=== PATIENT | female | born 1960 | race Caucasian/White ===

== ENCOUNTER 2017-04-22 13:59 | Inpatient (IN) | payer BC ==
[2017-04-22] VITALS (7 sets, daily range): BP systolic 137–162; BP diastolic 72–93; PULSE 61–88; RESP 18–20; TEMP 98; O2SAT 95–98
[~2017-04-22 13:59] MED LIST: ALBU1AER INH; ASPI81 PO; CART180C4 PO; GEMF600T PO; LANTUS2P SC; LEVO100T4 PO; NOVOLOGSS SQ; OMEG100037 PO; VITA20002 PO; ZITHTAB PO; ZOCO80TA PO
[2017-04-22] MEDS ORDERED: LEVO100T5 PO (14:08)
[2017-04-22] MEDS ORDERED: GEMF600T PO (14:08)
[2017-04-22] MEDS ORDERED: HUMALOG SQ (14:08)
[2017-04-22] MEDS ORDERED: INSU1INJ13 SQ (14:08)
[2017-04-22] MEDS ORDERED: VICT18IN SQ (14:08)
[2017-04-22] MEDS ORDERED: ZOCO40TA PO (14:08)
[2017-04-22] MEDS ORDERED: D31000TA PO (14:08)
[2017-04-22] MEDS ORDERED: FISH1000 PO (14:08)
[2017-04-22] MEDS ORDERED: ASPI81CH CHEW (14:08)
[2017-04-22] MEDS ORDERED: DILT120T PO (14:08)
--- NOTE | 2017-04-22 14:30 | PD ---
HPI Chief Complaint: General Weakness Time Seen by Provider: 14:30 Travel History International Travel<30 days: No Contact w/Intl Traveler<30days: No Traveled to known affect area: No History of Present Illness HPI 56-year-old female came to the emergency room with history of aching all over from her head to toe for past 4-5 days. She also feels quite weak and lethargic. Patient says that she works as a agency cashier and has been unable to do that because of this. She has multiple past medical history the form of diabetes, hypothyroidism and stage III kidney disease. She has been taking her medications like she supposed to and seen her respective physicians as well. Her last blood test by her kidney doctor was 4-5 months ago. Her last thyroid test was more than 2 years ago as per her. Her analysis engineer recently changed her Lantus Tresiba and increase the dose of her other diabetes medication. Vital signs are otherwise stable. Denies any vomiting or diarrhea. In fact she says she has been constipated. Her last bowel movement was yesterday where she had to strain some and had small quantity of hard stool. [facility] Past Medical History Narrative Medical List of her past medical, surgical, social and family history was reviewed from the nursing note. Hx Anticoagulant Therapy: Yes (asa 81mg) Anemia: Yes Asthma: No Blood Disorders: No Anxiety: No Depression: Yes Heart Rhythm Problems: No Cancer: No Cardiac Catheterization: Yes Cardiovascular Problems: Yes ( -2007 with one stent placement, HTN on meds) High Cholesterol: Yes Chemotherapy: No Chest Pain: No Congestive Heart Failure: No COPD: No Coronary Artery Disease: Yes Diabetes: Yes Patient Takes Glucophage: No Endocrine: Yes Gastrointestinal Disorders: Yes (diarrhea today) Genitourinary: No Hypertension: Yes Immune Disorder: No Implanted Vascular Access Dvce: Yes Musculoskeletal: No Neurologic: No Psychiatric: No Reproductive: No Respiratory: Yes (COPD) Myocardial Infarction: Yes (Pt states 2007) Radiation Therapy: No Renal Failure: Yes (CKD stage 4) Sickle Cell Disease: No Sleep Apnea: No Thyroid Disease: Yes (Hypo) Menopausal: Yes : 3 Para: 2 : 1 Tubal Ligation: Yes Past Surgical History Body Medical Devices: coronary stent Coronary Stent: Yes (12/30) Other Surgery: No Social History Alcohol Use: No Tobacco Use: Yes (1/2 PPD) Substance Use: Yes (MARIJUANA) Allergies-Medications (Allergen,Severity, Reaction): Coded Allergies: Sulfa (Verified Adverse Reaction, Intermediate, RASH, 04/22/17) Comments List of her allergies reviewed from the nursing note. Reported Meds & Prescriptions Reported Meds & Active Scripts Active Reported Humalog Inj (Insulin Human Lispro) 1,000 Unit/10 Ml Vial 1-9 Units SQ ACHS Max dose at bedtime:( )units; sugars< 70,(0)units; sugars 150-199,(1)unit; sugars 200-249,(3)units; sugars 250-299,(5)units; sugars 300-349,(7)units; sugars more than 349,(9)units. Victoza Inj (Liraglutide Inj) 18 Mg/3 Ml Pen 0.6 Mg SQ DAILY Tresiba Flextouch Pen Inj (Insulin Degludec Inj) 600 unit/3 ML Pen 40 Units SQ DAILY Fish Oil (Abell-3 Fatty Acids) 1,000 Mg Cap 1 Tab PO DAILY Gemfibrozil 600 Mg Tab 600 Mg PO BIDAC Take 30 minutes prior to breakfast and dinner. Zocor (Simvastatin) 40 Mg Tab 40 Mg PO DAILY Levothyroxine (Levothyroxine Sodium) 100 Mcg Tab 100 Mcg PO DAILY Diltiazem (Diltiazem HCl) 120 Mg Tab 240 Mg PO DAILY D3 (Cholecalciferol) 1,000 Unit Tab 1 Tab PO TID Aspirin 81 Mg Chew 81 Mg CHEW DAILY Narrative Medication List of her home medications reviewed from the nursing note. Review of Systems Except as stated in HPI: all other systems reviewed are Neg Physical Exam Narrative GENERAL: Awake, alert, moderate distress, obese SKIN: Focused skin assessment warm/dry. Pale HEAD: Atraumatic. Normocephalic. EYES: Pupils equal and round. No scleral icterus. No injection or drainage. ENT: No nasal bleeding or discharge. Dry mucous membrane and coated tongue NECK: Trachea midline. No JVD. CARDIOVASCULAR: Regular rate and rhythm. No murmur appreciated. RESPIRATORY: No accessory muscle use. Clear to auscultation. Breath sounds equal bilaterally. GASTROINTESTINAL: Abdomen soft, non-tender, nondistended. Hepatic and splenic margins not palpable. MUSCULOSKELETAL: No obvious deformities. No clubbing. No cyanosis. No edema. NEUROLOGICAL: Awake and alert. No obvious cranial nerve deficits. Motor grossly within normal limits. Normal speech. PSYCHIATRIC: Appropriate mood and affect; insight and judgment normal. Data Data Last Documented VS Vital Signs Date Time Temp Pulse Resp B/P Pulse Ox O2 Delivery O2 Flow Rate FiO2 04/22/17 17:05 61 18 143/74 98 Room Air 04/22/17 14:03 98.0 Orders Complete Blood Count With Diff (04/22/17 14:53) Comprehensive Metabolic Panel (04/22/17 14:53) Creatine Kinase (Cpk) (04/22/17 14:53) Thyroid Stimulating Hormone (04/22/17 14:53) Urinalysis - C+S If Indicated (04/22/17 14:53) Blood Glucose (04/22/17 14:53) Ecg Monitoring (04/22/17 14:53) Iv Access Insert/Monitor (04/22/17 14:53) Oximetry (04/22/17 14:53) Sodium Chloride 0.9% Flush (Ns Flush) (04/22/17 15:00) Sodium Chlorid 0.9% 500 Ml Inj (Ns 500 M (04/22/17 15:00) Electrocardiogram (04/22/17 ) Troponin I (04/22/17 14:53) Urine Culture (04/22/17 15:00) Levothyroxine (Synthroid) (04/22/17 16:00) Sodium Chlor 0.9% 1000 Ml Inj (Ns 1000 M (04/22/17 16:45) Sodium Chlor 0.9% 1000 Ml Inj (Ns 1000 M (04/22/17 16:45) Sodium Chlor 0.9% 1000 Ml Inj (Ns 1000 M (04/22/17 16:34) CKMB (04/22/17 15:13) CKMB% (04/22/17 15:13) Admit Order (Ed Use Only) (04/22/17 17:24) Labs Laboratory Tests Test 04/22/17 04/22/17 15:00 15:13 Urine Collection Type CATH Urine Color YELLOW Urine Turbidity SLIGHT Urine pH 6.0 Urine Specific [place] 1.018 Urine Protein 100 mg/dL Urine Glucose (UA) NEG mg/dL Urine Ketones NEG mg/dL Urine Occult Blood LARGE Urine Nitrite NEG Urine Bilirubin NEG Urine Leukocyte Esterase TRACE Urine RBC 20-24 /hpf Urine WBC 6-8 /hpf Urine Squamous Epithelial > 8 /hpf Cells Urine Bacteria MOD /hpf Microscopic Urinalysis Comment CULTURE INDICATED Urine Collection Time 15:18 White Blood Count 13.2 TH/MM3 Red Blood Count 4.64 MIL/MM3 Hemoglobin 13.0 GM/DL Hematocrit 39.9 % Mean Corpuscular Volume 86.0 FL Mean Corpuscular Hemoglobin 28.1 PG Mean Corpuscular Hemoglobin 32.7 % Concent Red Cell Distribution Width 12.7 % Platelet Count 331 TH/MM3 Mean Platelet Volume 8.1 FL Neutrophils (%) (Auto) 78.9 % Lymphocytes (%) (Auto) 16.4 % Monocytes (%) (Auto) 3.2 % Eosinophils (%) (Auto) 0.8 % Basophils (%) (Auto) 0.7 % Neutrophils # (Auto) 10.4 TH/MM3 Lymphocytes # (Auto) 2.2 TH/MM3 Monocytes # (Auto) 0.4 TH/MM3 Eosinophils # (Auto) 0.1 TH/MM3 Basophils # (Auto) 0.1 TH/MM3 CBC Comment DIFF FINAL Differential Comment Sodium Level 140 MEQ/L Potassium Level 4.4 MEQ/L Chloride Level 105 MEQ/L Carbon Dioxide Level 24.1 MEQ/L Anion Gap 11 MEQ/L Blood Urea Nitrogen 52 MG/DL Creatinine 2.50 MG/DL Estimat Glomerular Filtration 20 ML/MIN Rate Random Glucose 141 MG/DL Calcium Level 9.7 MG/DL Total Bilirubin 0.3 MG/DL Aspartate Amino Transf 795 U/L (AST/SGOT) Alanine Aminotransferase 318 U/L (ALT/SGPT) Alkaline Phosphatase 143 U/L Total Creatine Kinase 57355 U/L Creatine Kinase MB 245.1 NG/ML Creatine Kinase MB % 1.1 % Troponin I 0.04 NG/ML Total Protein 8.5 GM/DL Albumin 3.5 GM/DL Thyroid Stimulating Hormone 0.350 uIU/ML 3rd Gen [facility] Medical Decision Making Medical Screen Exam Complete: Yes Emergency Medical Condition: Yes Medical Record Reviewed: Yes Interpretation(s) Twelve-lead EKG was reviewed by me. Normal sinus rhythm, normal axis, nonspecific ST-T wave changes. Heart rate of 75 bpm. Differential Diagnosis Metabolic abnormality, dehydration, renal failure, hypo-thyroidism, rhabdomyolysis Narrative Course 3:30 PM awaiting for the blood test results. She looked dehydrated and I gave her 500 cc of IV fluid bolus. Her bedside blood glucose level was 134. 4 PM blood test results are back except for CPK. LFTs are elevated. My suspicion is high for rhabdomyolysis given the fact that patient is on Zocor and gemfibrozil. Case has been signed over to the oncoming ER physician. I ordered a liter of IV fluid bolus. Procedures EKG Prior to Arrival: Jerry Wang MD Apr 22, 2017 14:30
[2017-04-22] MEDS ORDERED: SODIUM CHLORID 0.9% 500 ML INJ 500 ML IV ONE (15:00)
[2017-04-22] MEDS ORDERED: SODIUM CHLORIDE 0.9% FLUSH 5 ML FLUSH IV FLUSH PRN (15:00)
[2017-04-22 15:22] LABS: AUTOMATED NEUTROPHIL # 10.4 TH/MM3 (1.8-7.7); BASOPHIL # 0.1 TH/MM3 (0-0.2); BASOPHIL % 0.7 % (0.0-2.0); EOSINOPHIL # 0.1 TH/MM3 (0-0.4); EOSINOPHIL % 0.8 % (0.0-4.0); HEMATOCRIT 39.9 % (35.0-46.0); LYMPH % 16.4 % (9.0-44.0); LYMPHOCYTE # 2.2 TH/MM3 (1.0-4.8); MEAN CORPUSCULAR HEMOGLOBIN 28.1 PG (27.0-34.0); MEAN CORPUSCULAR HGB CONC 32.7 % (32.0-36.0); MONO % 3.2 % (0.0-8.0); NEUT % 78.9 % (16.0-70.0); PLATELET COUNT 331 TH/MM3 (150-450); RED BLOOD COUNT 4.64 MIL/MM3 (4.00-5.30); RED CELL DISTRIBUTION WIDTH 12.7 % (11.6-17.2); WHITE BLOOD COUNT 13.2 TH/MM3 (4.0-11.0)
[2017-04-22 15:25] LABS: HEMO FLAGS DIFF FINAL
[2017-04-22 15:27] LABS: BLOOD, URINE LARGE (NEG); GLUCOSE,URINE NEG (NEG); KETONE, URINE NEG (NEG); NITRITE,URINE NEG (NEG)
[2017-04-22 15:30] LABS: CHLORIDE 105 MEQ/L (98-107); POTASSIUM 4.4 MEQ/L (3.5-5.1); SODIUM (NA) 140 MEQ/L (136-145)
[2017-04-22 15:31] LABS: METHOD OF COLLECTION CATH; URINE COLOR YELLOW (YELLW/STRAW)
[2017-04-22 15:32] LABS: BACTERIA, URINE MOD /hpf; COMMENT (UR) CULTURE INDICATED; CULTURE IF INDICATED CULTURE INDICATED; SQUAMOUS EPITHELIAL CELL URINE > 8 /hpf (0-5)
[2017-04-22 15:34] LABS: ANION GAP 11 MEQ/L (5-15); BICARBONATE 24.1 MEQ/L (21.0-32.0); BLOOD UREA NITROGEN 52 MG/DL (7-18)
[2017-04-22 15:37] LABS: ALT (GPT) 318 U/L (10-53); AST (GOT) 795 U/L (15-37); GLOMERULAR FILTRATION RATE 20 ML/MIN (>89)
[2017-04-22 15:38] LABS: TOTAL BILIRUBIN ADULT 0.3 MG/DL (0.2-1.0)
[2017-04-22 15:40] LABS: ALKALINE PHOSPHATASE 143 U/L (45-117)
[2017-04-22] MEDS ORDERED: LEVOTHYROXINE SODIUM 200 MCG TAB PO ONE (16:00)
[2017-04-22] MEDS ORDERED: SODIUM CHLOR 0.9% 1000 ML INJ 1,000 ML IV SCH (16:34)
--- NOTE | 2017-04-22 16:39 | PD ---
Data Data Last Documented VS Vital Signs Date Time Temp Pulse Resp B/P Pulse Ox O2 Delivery O2 Flow Rate FiO2 04/22/17 16:33 71 20 141/72 98 Room Air 04/22/17 14:03 98.0 Orders Complete Blood Count With Diff (04/22/17 14:53) Comprehensive Metabolic Panel (04/22/17 14:53) Creatine Kinase (Cpk) (04/22/17 14:53) Thyroid Stimulating Hormone (04/22/17 14:53) Urinalysis - C+S If Indicated (04/22/17 14:53) Blood Glucose (04/22/17 14:53) Ecg Monitoring (04/22/17 14:53) Iv Access Insert/Monitor (04/22/17 14:53) Oximetry (04/22/17 14:53) Sodium Chloride 0.9% Flush (Ns Flush) (04/22/17 15:00) Sodium Chlorid 0.9% 500 Ml Inj (Ns 500 M (04/22/17 15:00) Electrocardiogram (04/22/17 ) Troponin I (04/22/17 14:53) Urine Culture (04/22/17 15:00) Levothyroxine (Synthroid) (04/22/17 16:00) Sodium Chlor 0.9% 1000 Ml Inj (Ns 1000 M (04/22/17 16:45) Sodium Chlor 0.9% 1000 Ml Inj (Ns 1000 M (04/22/17 16:45) Sodium Chlor 0.9% 1000 Ml Inj (Ns 1000 M (04/22/17 16:34) CKMB (04/22/17 15:13) CKMB% (04/22/17 15:13) Labs Laboratory Tests Test 04/22/17 04/22/17 15:00 15:13 Urine Collection Type CATH Urine Color YELLOW Urine Turbidity SLIGHT Urine pH 6.0 Urine Specific [place] 1.018 Urine Protein 100 mg/dL Urine Glucose (UA) NEG mg/dL Urine Ketones NEG mg/dL Urine Occult Blood LARGE Urine Nitrite NEG Urine Bilirubin NEG Urine Leukocyte Esterase TRACE Urine RBC 20-24 /hpf Urine WBC 6-8 /hpf Urine Squamous Epithelial > 8 /hpf Cells Urine Bacteria MOD /hpf Microscopic Urinalysis Comment CULTURE INDICATED Urine Collection Time 15:18 White Blood Count 13.2 TH/MM3 Red Blood Count 4.64 MIL/MM3 Hemoglobin 13.0 GM/DL Hematocrit 39.9 % Mean Corpuscular Volume 86.0 FL Mean Corpuscular Hemoglobin 28.1 PG Mean Corpuscular Hemoglobin 32.7 % Concent Red Cell Distribution Width 12.7 % Platelet Count 331 TH/MM3 Mean Platelet Volume 8.1 FL Neutrophils (%) (Auto) 78.9 % Lymphocytes (%) (Auto) 16.4 % Monocytes (%) (Auto) 3.2 % Eosinophils (%) (Auto) 0.8 % Basophils (%) (Auto) 0.7 % Neutrophils # (Auto) 10.4 TH/MM3 Lymphocytes # (Auto) 2.2 TH/MM3 Monocytes # (Auto) 0.4 TH/MM3 Eosinophils # (Auto) 0.1 TH/MM3 Basophils # (Auto) 0.1 TH/MM3 CBC Comment DIFF FINAL Differential Comment Sodium Level 140 MEQ/L Potassium Level 4.4 MEQ/L Chloride Level 105 MEQ/L Carbon Dioxide Level 24.1 MEQ/L Anion Gap 11 MEQ/L Blood Urea Nitrogen 52 MG/DL Creatinine 2.50 MG/DL Estimat Glomerular Filtration 20 ML/MIN Rate Random Glucose 141 MG/DL Calcium Level 9.7 MG/DL Total Bilirubin 0.3 MG/DL Aspartate Amino Transf 795 U/L (AST/SGOT) Alanine Aminotransferase 318 U/L (ALT/SGPT) Alkaline Phosphatase 143 U/L Total Creatine Kinase 04048 U/L Creatine Kinase MB 245.1 NG/ML Creatine Kinase MB % 1.1 % Troponin I 0.04 NG/ML Total Protein 8.5 GM/DL Albumin 3.5 GM/DL Thyroid Stimulating Hormone 0.350 uIU/ML 3rd Gen [facility] Supervised Visit with [facility]: No Narrative Course Patient was initially evaluated by the previous provider and signed out to me at the beginning of my shift at approximate 4:00 PM pending CPK and disposition. See her note for further details. Briefly this is a 56-year-old female with history of diabetes, CK 80, hypothyroidism, here for evaluation of generalized muscle aches and pains as well as weakness. Initial vital signs show heart rate 80, blood pressure 162/80 , pulse ox 95% on room air, oral temp of 98F. CBC shows WBC 13.2, hemoglobin 13, hematocrit 39.9, platelets 331. CMP is remarkable for BUN 52, creatinine 2.5, GFR 28 which is worse than her baseline, AST 795, ALT 318. Troponin is 143. TSH is 0.35. UA shows large occult blood, 20-24 RBCs, 6-8 WBCs, greater than 8 epithelial cells, moderate bacteria. Bacteria is likely a contaminant. I do not believe the surface since a UTI. I called the lab to inquire about this CPK, and the laborer dairy farm tells me that he is in the process of diluting the sample stating that it will be greater than 14,000. Patient was given 500 cc of normal saline by the previous provider. She was written for 2 more liters of normal saline IV bolus and started on 125 cc per hour. Her rhabdomyolysis is likely medication induced. On exam she is awake and alert. There are no focal neurologic findings, however she is weak in all 4 of her extremities. She will be admitted for further treatment and evaluation of rhabdomyolysis, transaminitis, acute renal insufficiency. Case discussed with [facility] hospitalist Dr. Umana. Patient will be admitted to their service under Dr. Bruce. Diagnosis Primary Impression: Rhabdomyolysis Qualified Code: M62.82 - Non-traumatic rhabdomyolysis Additional Impressions: Transaminitis Acute renal insufficiency Admitting Information Admitting Physician Requests: Admit Ta Aragon MD Apr 22, 2017 16:39
[2017-04-22 16:41] LABS: CREATINE KINASE 22400 U/L (26-192)
[2017-04-22 16:43] LABS: CKMB 245.1 NG/ML (0.5-3.6)
[2017-04-22] MEDS ORDERED: SODIUM CHLOR 0.9% 1000 ML INJ 1,000 ML IV ONE ×2 (16:45)
[2017-04-22] MEDS ORDERED: GLUCAGON 1 MG/ML VIAL OTHER PRN (17:30)
[2017-04-22] MEDS ORDERED: ONDANSETRON HCL 4 MG/2 ML VIAL IVP PRN (17:30)
[2017-04-22] MEDS ORDERED: DEXTROSE 50% IN WATER 50 ML VIAL(D50) IV PRN (17:30)
[2017-04-22] MEDS ORDERED: NALOXONE HCL 0.4 MG/ML AMP IV PRN (17:30)
[2017-04-22] MEDS ORDERED: SODIUM CHLORIDE 0.9% FLUSH 10 ML FLUSH IV FLUSH PRN (17:30)
[2017-04-22] MEDS: HEPARIN SODIUM - SQ 10,000 UNITS/ML VIAL SQ SCH (18:04)
[2017-04-22] MEDS: SODIUM CHLOR 0.9% 1000 ML INJ 1,000 ML IV SCH (18:05)
[2017-04-22] MEDS: SODIUM CHLORIDE 0.9% FLUSH 10 ML FLUSH IV FLUSH SCH (21:00)
[2017-04-22] MEDS: INSULIN ASPART SUPPLEMENTAL SCALE SQ SCH (21:19)
[2017-04-22 23:22] LABS: CREATINE KINASE GREATER THAN 14000 U/L (26-192)
[2017-04-22 23:40] LABS: CKMB 234.4 NG/ML (0.5-3.6)
[2017-04-23] VITALS (12 sets, daily range): BP systolic 133–159; BP diastolic 76–86; PULSE 51–75; RESP 16–20; TEMP 97.1–97.9; O2SAT 96–100
[2017-04-23] MEDS: SODIUM CHLOR 0.9% 1000 ML INJ 1,000 ML IV SCH ×2 (04:24→11:37)
[2017-04-23] MEDS ORDERED: LEVOTHYROXINE SODIUM 100 MCG TAB PO SCH (06:00)
[2017-04-23] MEDS: INSULIN ASPART SUPPLEMENTAL SCALE SQ SCH ×4 (06:26→20:50)
[2017-04-23 06:33] LABS: AUTOMATED NEUTROPHIL # 6.9 TH/MM3 (1.8-7.7); BASOPHIL # 0.1 TH/MM3 (0-0.2); EOSINOPHIL # 0.1 TH/MM3 (0-0.4); EOSINOPHIL % 1.5 % (0.0-4.0); HEMATOCRIT 34.6 % (35.0-46.0); HEMO FLAGS DIFF FINAL; LYMPHOCYTE # 2.2 TH/MM3 (1.0-4.8); MEAN CORPUSCULAR HGB CONC 33.7 % (32.0-36.0); MONO % 6.2 % (0.0-8.0); NEUT % 69.3 % (16.0-70.0); PLATELET COUNT 276 TH/MM3 (150-450); RED BLOOD COUNT 4.03 MIL/MM3 (4.00-5.30); RED CELL DISTRIBUTION WIDTH 12.9 % (11.6-17.2); WHITE BLOOD COUNT 9.9 TH/MM3 (4.0-11.0)
[2017-04-23] MEDS: HEPARIN SODIUM - SQ 10,000 UNITS/ML VIAL SQ SCH ×2 (06:41→16:32)
[2017-04-23 07:10] LABS: BICARBONATE 23.9 MEQ/L (21.0-32.0); INDIRECT BILIRUBIN 0.1 MG/DL (0.0-0.8); TOTAL BILIRUBIN ADULT 0.2 MG/DL (0.2-1.0)
[2017-04-23] MEDS: ASPIRIN 81 MG CHEW TAB CHEW SCH (09:53)
[2017-04-23] MEDS: DILTIAZEM-CD 240 MG CAP ER PO SCH (09:53)
[2017-04-23] MEDS: ACETAMINOPHEN/HYDROcodone 325 MG/5 MG TAB PO PRN ×3 (09:53→22:53)
[2017-04-23] MEDS: SODIUM CHLORIDE 0.9% FLUSH 10 ML FLUSH IV FLUSH SCH ×2 (09:54→20:37)
[2017-04-23] MEDS ORDERED: LIRAGLUTIDE 0.6 MG SQ SCH (10:30)
[2017-04-23] MEDS ORDERED: NON-FORMULARY DRUG (Omega-3 Fatty Acids (Fish Oil) 1 TAB) PO SCH (10:30)
--- NOTE | 2017-04-23 11:20 | MH ---
cc: RICARDO DELGADO MD DATE OF ADMISSION: 04/22/2017 CHIEF COMPLAINT Generalized weakness. HISTORY OF PRESENT ILLNESS This is a 56-year-old female with past medical-surgical history significant for anemia, depression, history of heart attack in the past in 2007 and stent placement, history of hyperlipidemia and diabetes mellitus, history of chronic kidney disease stage IV, COPD, hypothyroidism, came to the ER at [facility] complaining of generalized weakness and aches and pain all over the body from head to toe, for the last 4-5 days. She admits that she was laying on the bed most of the time and not able to walk around and she feels weak and lethargic. She has multiple past medical history as dictated above. She feels very weak and tired and she was diagnosed with rhabdomyolysis with renal failure. She sees vessel traffic officer and recently changed her Lantus to Victoza and Tresiba. Other than that she denies any nausea, vomiting and diarrhea, constipation. She denies any chest pain, shortness of breath. Denies any blood in stool or black stool. Denies any frequent painful urination, burning urination. Denies any other neurological symptoms. PAST MEDICAL AND SURGICAL HISTORY As dictated above. SOCIAL HISTORY She smoked about 45-year, one pack a day, quit 1 year ago and abused marijuana. Denies any alcohol abuse. She lives at home. FAMILY HISTORY Family history is significant for dad had heart attack and mom has hypertension and aneurysm. ALLERGIES SULFA. MEDICATIONS Medications include: 1. Humalog according to sliding scale. 2. Victoza 0.6 mg subcutaneous daily. 3. Tresiba 40 units subcutaneous daily. 4. Fish oil p.o. daily. 5. Gemfibrozil 600 mg twice a day. 6. Zocor 40 mg p.o. daily. 7. Levothyroxine 100 mcg p.o. daily. 8. Diltiazem 240 mg p.o. daily. 9. Vitamin D3; 1000 units p.o. t.i.d. 10. Aspirin 81 mg p.o. daily. REVIEW OF SYSTEMS Positive for generalized weakness, feeling weak and tired, all other review of systems are negative. PHYSICAL EXAMINATION GENERAL: This is a 56-year-old female laying on the bed, not in acute distress. VITAL SIGNS: Temperature 97.5, heart rate 68, respiration 20, blood pressure 143/82, O2 saturation 100% on room air. HEENT: Normocephalic, atraumatic. EOMI. PERRL. Oral mucosa moist. NECK: Neck is supple. No visible thyromegaly or neck mass. Trachea central. CVS: Regular rate and rhythm. RESPIRATIONS: Clear to auscultation bilaterally. ABDOMEN: Soft, nontender. Bowel sounds audible. EXTREMITIES: No cyanosis or clubbing. Full range of motion of all extremities. NEURO: Awake, alert, oriented x4. No focal deficits. SKIN: Warm and dry. PSYCHE: The patient is cooperative. Mood and affect is normal. LABORATORY DATA Includes CBC totally unremarkable except for WBC count was 13.2, now it is 9.9. BMP totally unremarkable except for chloride 113, high, BUN 45 high, creatinine 1.90, initially creatinine was 2.50, GFR 27 low, glucose 115 high. AST 785 high, ALT 313 high. Creatinine kinase 22,400, decreased down to 14,000. CPK MB is 245.1 high, and decreased down to 234.4 high, total protein 6.8 normal, albumin 2.7 normal. TSH is 0.350 low. Urinalysis shows large occult blood but only 20-24 RBC and WBC 6-8, culture indicated, moderate bacteria. EKG Shows rate of 75, sinus rhythm. Normal EKG. ASSESSMENT/PLAN This is a 56-year-old female who came to the ER diagnosed with: 1. Generalized weakness secondary to rhabdomyolysis. The patient is on IV fluid. I will consult nephrology for further recommendation. 2. Acute on chronic renal failure secondary to rhabdomyolysis. Nephrology consulted, further recommendation per nephrology. 3. Diabetes mellitus. ADA 1800 calorie diet. NovoLog low-dose sliding scale. Check blood sugars a.c. and h.s. Continue home medication. 4. History of hyperlipidemia. The patient has high LFTs with myalgia and I will hold Gemfibrozil and Zocor. 5. History of hypothyroidism. The patient is on levothyroxine 100 mcg p.o. daily. The patient's TSH is 0.35. I will decrease the levothyroxine to 88 mcg p.o. daily. 6. History of hypertension. Continue home medication. 7. Vitamin D deficiency. Continue home medication. 8. DVT prophylaxis. Heparin 5000 units subcutaneous twice a day. 9. GI prophylaxis. Protonix 40 mg p.o. daily. 10. Check CBC, CMP in the morning. We are going to manage the patient on a daily basis and make recommendation on a daily basis. Ricardo Delgado MD EA/JANNY /10:22 AM /10:42 AM
[2017-04-23] MEDS: PANTOPRAZOLE SOD 40 MG DELAYED RELEASE TAB PO SCH (11:36)
[2017-04-23] MEDS: CHOLECALCIFEROL (VIT D3) 1000 UNIT TAB PO SCH ×2 (11:36→16:31)
--- NOTE | 2017-04-23 15:28 | EKG ---
Date Performed: 04/22/2017 Time Performed: 15:16:33 PTAGE: 56 years EKG: Sinus rhythm NORMAL ECG PREVIOUS TRACING : 12/18/2015 10.45 Compared to prior tracing no significant change. DOCTOR: Edgar Cordero Interpretating Date/Time 04/23/2017 15:28:37
--- NOTE | 2017-04-23 20:47 | PD.CONS ---
HPI Service Nephrology Consult Requested By Dr. Bruce Reason for Consult Acute and chronic kidney disease Primary Care Physician Sam Tejeda MD History of Present Illness Patient is a 56-year-old white female with history of chronic kidney disease due to diabetes, insulin-dependent diabetes, hypertension, hyperlipidemia, coronary artery disease who had been feeling achy and tired and it was very painful and she decided to come to the hospital, she was found to have rhabdomyolysis she takes gemfibrozil and simvastatin, patient follows with Dr. Lweis. Review of Systems Constitutional: COMPLAINS OF: Fatigue Gastrointestinal: COMPLAINS OF: Constipation, Nausea Musculoskeletal: COMPLAINS OF: Joint pain, Muscle aches, Stiffness, Back pain, Neck pain Neurologic: COMPLAINS OF: Abnormal gait Past Family Social History Allergies: Coded Allergies: Sulfa (Verified Adverse Reaction, Intermediate, RASH, 04/22/17) Past Medical History Insulin-dependent diabetes Hypertension Hyperlipidemia Coronary artery disease Chronic kidney disease Constipation Acute myocardial infarction Hypothyroidism Past Surgical History Heart catheterization Stent placement Reported Medications Reported Meds & Active Scripts Active Reported Humalog Inj (Insulin Human Lispro) 1,000 Unit/10 Ml Vial 1-9 Units SQ ACHS Max dose at bedtime:( )units; sugars< 70,(0)units; sugars 150-199,(1)unit; sugars 200-249,(3)units; sugars 250-299,(5)units; sugars 300-349,(7)units; sugars more than 349,(9)units. Victoza Inj (Liraglutide Inj) 18 Mg/3 Ml Pen 0.6 Mg SQ DAILY Tresiba Flextouch Pen Inj (Insulin Degludec Inj) 600 unit/3 ML Pen 40 Units SQ DAILY Fish Oil ([place]-3 Fatty Acids) 1,000 Mg Cap 1 Tab PO DAILY Gemfibrozil 600 Mg Tab 600 Mg PO BIDAC Take 30 minutes prior to breakfast and dinner. Zocor (Simvastatin) 40 Mg Tab 40 Mg PO DAILY Levothyroxine (Levothyroxine Sodium) 100 Mcg Tab 100 Mcg PO DAILY Diltiazem (Diltiazem HCl) 120 Mg Tab 240 Mg PO DAILY D3 (Cholecalciferol) 1,000 Unit Tab 1 Tab PO TID Aspirin 81 Mg Chew 81 Mg CHEW DAILY Active Ordered Medications Current Medications Medications (Trade) Dose Ordered Sig/Jamal Route Start Time Stop Time Status Last Admin (NS 1000 ml Inj) 1,000 ml @ 100 mls/hr Q10H IV 04/22/17 17:23 04/23/17 11:37 (NS Flush) 2 ml UNSCH PRN IV FLUSH 04/22/17 17:30 (NS Flush) 2 ml BID IV FLUSH 04/22/17 21:00 04/23/17 09:54 (Zofran Inj) 4 mg Q6H PRN IVP 04/22/17 17:30 (Heparin Inj) 5,000 units Q12H SQ 04/22/17 18:00 04/23/17 16:32 (Narcan Inj) 0.4 mg UNSCH PRN IV 04/22/17 17:30 (D50w (Vial) Inj) 50 ml UNSCH PRN IV 04/22/17 17:30 (Glucagon Inj) 1 mg UNSCH PRN OTHER 04/22/17 17:30 (Aspirin Chew) 81 mg DAILY CHEW 04/23/17 09:00 04/23/17 09:53 (Cardizem Cd) 240 mg DAILY PO 04/23/17 09:00 04/23/17 09:53 Patient Own Medication PT OWN MED: Insulin Degludec(Ryan... DAILY SQ 04/23/17 09:00 Hold ([place] 5-325 Mg) 1 tab Q6H PRN PO 04/23/17 09:15 04/23/17 16:32 (Vitamin D3) 1,000 units TID PO 04/23/17 13:00 04/23/17 16:31 (Protonix) 40 mg DAILY PO 04/23/17 11:00 04/23/17 11:36 Patient Own Medication PT OWN MED: VICT... DAILY SQ 04/24/17 09:00 Future Hold (Synthroid) 88 mcg DAILY@0600 PO 04/24/17 06:00 (Pneumovax-23 Inj) 25 mcg ONCE ONCE IM 04/24/17 09:00 04/24/17 09:01 Family History Mother has history of coronary artery disease Social History History of smoking and use of marijuana in the past Physical Exam Vital Signs Vital Signs Date Time Temp Pulse Resp B/P Pulse Ox O2 Delivery O2 Flow Rate FiO2 04/23/17 17:40 18 04/23/17 16:00 97.1 64 17 133/81 98 04/23/17 12:00 97.8 73 19 152/80 100 04/23/17 10:06 97.5 68 20 143/82 100 04/23/17 10:03 69 04/23/17 07:30 97.9 67 16 133/77 99 04/23/17 06:28 72 18 133/77 99 Room Air 04/23/17 06:27 18 99 Room Air 04/23/17 04:34 18 99 Room Air 04/23/17 04:18 75 18 148/76 100 Room Air 04/23/17 02:30 75 18 142/78 99 Room Air 04/23/17 02:30 100 Room Air 04/23/17 02:02 73 18 159/86 96 Room Air 04/22/17 23:30 74 18 150/86 97 Room Air Physical Exam GENERAL: Well-nourished, well-developed patient. SKIN: Warm and dry. HEAD: Normocephalic. EYES: No scleral icterus. No injection or drainage. NECK: Supple, trachea midline. No JVD or lymphadenopathy. CARDIOVASCULAR: Regular rate and rhythm without murmurs, gallops, or rubs. RESPIRATORY: Breath sounds equal bilaterally. No accessory muscle use. GASTROINTESTINAL: Abdomen soft, non-tender, nondistended. EXTREMITIES: No cyanosis, or edema. NEUROLOGICAL: Awake, alert, and oriented x 3. Non-focal. Laboratory Laboratory Tests Test 04/22/17 04/23/17 21:55 06:05 Total Creatine Kinase GREATER THAN 35992 Creatine Kinase MB 234.4 Creatine Kinase MB % 0.0 White Blood Count 9.9 Red Blood Count 4.03 Hemoglobin 11.7 Hematocrit 34.6 Mean Corpuscular Volume 86.0 Mean Corpuscular Hemoglobin 29.0 Mean Corpuscular Hemoglobin 33.7 Concent Red Cell Distribution Width 12.9 Platelet Count 276 Mean Platelet Volume 8.3 Neutrophils (%) (Auto) 69.3 Lymphocytes (%) (Auto) 22.0 Monocytes (%) (Auto) 6.2 Eosinophils (%) (Auto) 1.5 Basophils (%) (Auto) 1.0 Neutrophils # (Auto) 6.9 Lymphocytes # (Auto) 2.2 Monocytes # (Auto) 0.6 Eosinophils # (Auto) 0.1 Basophils # (Auto) 0.1 CBC Comment DIFF FINAL Differential Comment Sodium Level 145 Potassium Level 4.0 Chloride Level 113 Carbon Dioxide Level 23.9 Anion Gap 8 Blood Urea Nitrogen 45 Creatinine 1.90 Estimat Glomerular Filtration 27 Rate Random Glucose 115 Calcium Level 8.6 Total Bilirubin 0.2 Direct Bilirubin 0.1 Indirect Bilirubin 0.1 Aspartate Amino Transf 785 (AST/SGOT) Alanine Aminotransferase 313 (ALT/SGPT) Alkaline Phosphatase 111 Total Protein 6.8 Albumin 2.7 Date/Time Procedure Status Source Growth 04/22/17 15:00 Urine Culture - Preliminary Resulted Urine Clean Catch IMMATURE GROWTH - REINCUBATE Result Diagram: 04/23/1760404/23/17604 Assessment and Plan Problem List: (1) Acute renal insufficiency Plan: Patient has rhabdomyolysis and I agree with IV hydration and continue to monitor renal functions closely she is on normal saline, I will switch her to half-normal saline with 2 Ampules of sodium bicarbonate at 125 cc an hour Avoid nephrotoxins Avoid dye studies (2) Rhabdomyolysis Plan: This is likely due to a combination of gemfibrozil with simvastatin along with calcium channel blockers (3) CKD (chronic kidney disease) stage 3, GFR 30-59 ml/min Plan: Continue to monitor follows with Dr. Lewis (4) Transaminitis Plan: Due to lipid-lowering agent (5) Diabetes Plan: Monitor blood glucose (6) Hypertension Plan: Monitor blood pressure Problem Qualifiers (1) Rhabdomyolysis: Qualified Code: M62.82 - Non-traumatic rhabdomyolysis Cristobal Pires MD Apr 23, 2017 20:46
[2017-04-23] MEDS ORDERED: LACTULOSE SYRUP 20 GM/30 ML CUP PO ONE (21:00)
[2017-04-23] MEDS: SODIUM BICARBONATE 8.4% INJ 100 MEQ in SODIUM CHLOR 0.45% 1000 ML INJ 1,000 ML IV SCH (21:20)
[2017-04-24 04:00] VITALS: BP 132/75; PULSE 68; RESP 16; TEMP 97.2; O2SAT 100
[2017-04-24] MEDS: SODIUM BICARBONATE 8.4% INJ 100 MEQ in SODIUM CHLOR 0.45% 1000 ML INJ 1,000 ML IV SCH (05:45)
[2017-04-24] MEDS: LEVOTHYROXINE SODIUM 88 MCG TAB PO SCH (05:45)
[2017-04-24] MEDS: HEPARIN SODIUM - SQ 10,000 UNITS/ML VIAL SQ SCH (05:46)
[2017-04-24] MEDS: ACETAMINOPHEN/HYDROcodone 325 MG/5 MG TAB PO PRN ×3 (05:46→23:00)
[2017-04-24 06:25] LABS: AUTOMATED NEUTROPHIL # 5.1 TH/MM3 (1.8-7.7); BASOPHIL # 0.1 TH/MM3 (0-0.2); EOSINOPHIL # 0.2 TH/MM3 (0-0.4); EOSINOPHIL % 2.2 % (0.0-4.0); HEMATOCRIT 32.7 % (35.0-46.0); HEMO FLAGS DIFF FINAL; LYMPH % 31.4 % (9.0-44.0); LYMPHOCYTE # 2.7 TH/MM3 (1.0-4.8); MEAN CELL VOLUME 86.5 FL (80.0-100.0); MEAN CORPUSCULAR HEMOGLOBIN 28.7 PG (27.0-34.0); MEAN CORPUSCULAR HGB CONC 33.2 % (32.0-36.0); MONO % 7.6 % (0.0-8.0); NEUT % 57.8 % (16.0-70.0); PLATELET COUNT 262 TH/MM3 (150-450); RED BLOOD COUNT 3.77 MIL/MM3 (4.00-5.30); WHITE BLOOD COUNT 8.8 TH/MM3 (4.0-11.0)
[2017-04-24] MEDS: INSULIN ASPART SUPPLEMENTAL SCALE SQ SCH ×4 (06:27→21:00)
[2017-04-24 06:36] LABS: CHLORIDE 114 MEQ/L (98-107); POTASSIUM 3.8 MEQ/L (3.5-5.1); SODIUM (NA) 148 MEQ/L (136-145)
[2017-04-24 06:58] LABS: ALKALINE PHOSPHATASE 104 U/L (45-117); ALT (GPT) 320 U/L (10-53); ANION GAP 8 MEQ/L (5-15); AST (GOT) 686 U/L (15-37); BICARBONATE 25.6 MEQ/L (21.0-32.0); BLOOD UREA NITROGEN 36 MG/DL (7-18); GLOMERULAR FILTRATION RATE 33 ML/MIN (>89); TOTAL BILIRUBIN ADULT 0.2 MG/DL (0.2-1.0)
[2017-04-24 08:00] VITALS: BP 140/73; PULSE 57; RESP 18; TEMP 97.4; O2SAT 95
[2017-04-24] MEDS: CHOLECALCIFEROL (VIT D3) 1000 UNIT TAB PO SCH ×3 (08:04→16:37)
[2017-04-24] MEDS: PANTOPRAZOLE SOD 40 MG DELAYED RELEASE TAB PO SCH (08:04)
[2017-04-24] MEDS: DILTIAZEM-CD 240 MG CAP ER PO SCH (08:05)
[2017-04-24] MEDS: SODIUM CHLORIDE 0.9% FLUSH 10 ML FLUSH IV FLUSH SCH ×2 (08:05→20:20)
[2017-04-24] MEDS: ASPIRIN 81 MG CHEW TAB CHEW SCH (08:05)
[2017-04-24 08:09] LABS: CREATINE KINASE GREATER THAN 14000 U/L (26-192)
--- NOTE | 2017-04-24 08:45 | HHI.PR ---
Subjective History of Present Illness Patient feel weak and tired have low blood sugar holding all diabetic medicine if glucose less than 150. d/w ERWIN Dominique low platelet discontinue heparin. Review of Systems Constitutional Constitutional: Fatigue, Weakness Vitals/Results Intake & Output 04/23/17 04/23/17 04/24/17 15:00 23:00 07:00 Intake Total 1000 ml 3356 ml 1044 ml Balance 1000 ml 3356 ml 1044 ml Intake Oral 1000 ml IV Total 3356 ml 1044 ml # Voids 6 1 # Bowel Movements 3 Vital Signs Vital Signs Date Time Temp Pulse Resp B/P Pulse Ox O2 Delivery O2 Flow Rate FiO2 04/24/17 08:00 97.4 57 18 140/73 95 04/24/17 04:00 97.2 68 16 132/75 100 04/23/17 23:01 97.2 58 16 144/77 96 04/23/17 21:12 97.5 63 18 151/84 98 04/23/17 20:00 51 04/23/17 17:40 18 04/23/17 16:00 97.1 64 17 133/81 98 04/23/17 12:00 97.8 73 19 152/80 100 04/23/17 10:06 97.5 68 20 143/82 100 04/23/17 10:03 69 CBC/BMP: 04/24/17 0503 04/24/17 0503 Lab Results Laboratory Tests Test 04/24/17 05:03 White Blood Count 8.8 TH/MM3 Red Blood Count 3.77 MIL/MM3 Hemoglobin 10.8 GM/DL Hematocrit 32.7 % Mean Corpuscular Volume 86.5 FL Mean Corpuscular Hemoglobin 28.7 PG Mean Corpuscular Hemoglobin 33.2 % Concent Red Cell Distribution Width 13.0 % Platelet Count 262 TH/MM3 Mean Platelet Volume 8.9 FL Neutrophils (%) (Auto) 57.8 % Lymphocytes (%) (Auto) 31.4 % Monocytes (%) (Auto) 7.6 % Eosinophils (%) (Auto) 2.2 % Basophils (%) (Auto) 1.0 % Neutrophils # (Auto) 5.1 TH/MM3 Lymphocytes # (Auto) 2.7 TH/MM3 Monocytes # (Auto) 0.7 TH/MM3 Eosinophils # (Auto) 0.2 TH/MM3 Basophils # (Auto) 0.1 TH/MM3 CBC Comment DIFF FINAL Differential Comment Sodium Level 148 MEQ/L Potassium Level 3.8 MEQ/L Chloride Level 114 MEQ/L Carbon Dioxide Level 25.6 MEQ/L Anion Gap 8 MEQ/L Blood Urea Nitrogen 36 MG/DL Creatinine 1.60 MG/DL Estimat Glomerular Filtration 33 ML/MIN Rate Random Glucose 49 MG/DL Calcium Level 8.7 MG/DL Total Bilirubin 0.2 MG/DL Aspartate Amino Transf 686 U/L (AST/SGOT) Alanine Aminotransferase 320 U/L (ALT/SGPT) Alkaline Phosphatase 104 U/L Total Creatine Kinase GREATER THAN 96439 U/L Total Protein 6.4 GM/DL Albumin 2.5 GM/DL Physical Exam General General Appearance: Well Developed, Well Nourished, No Acute Distress, Comfortable Eyes Eye Exam: Pupils Equal, Pupils Reactive, Sclera White, Extraocular Movement Intact Throat Throat Exam: Oral Mucosa [place] & Moist, Oral Pharynx Normal Neck Neck Exam: Neck Supple, Trachea Midline Pulmonary Resp Exam: Clear Bilaterally, Breath Sounds Equal, No Distress Cardiology CV Exam: Regular, Normal Sinus Rhythm Gastrointestinal/Abdomen GI Exam: Soft, Non-Tender, Bowel Sounds Present Musculoskeletal MS Exam: Normal Tone Integumentary Skin Exam: Clear, Warm, Dry, Intact Neurologic Neuro Exam: Alert, Awake, Oriented, No Focal Deficits PUD Prophylasis PUD Prophylaxis: Protonix Assessment/Plan Assessment/Plan ASSESSMENT/PLAN This is a 56-year-old female who came to the ER diagnosed with: 1. Generalized weakness secondary to rhabdomyolysis. likely due to a combination of gemfibrozil with simvastatin along with calcium channel blockers. The patient was on IV fluid. nephrology input noted for further recommendation. switch her to half- normal saline with 2 A of sodium bicarbonate at 125 cc an hour Avoid nephrotoxins and Avoid dye studies 2. Acute on chronic renal failure secondary to rhabdomyolysis. Nephrology input noted, further recommendation per nephrology. 3. Diabetes mellitus. ADA 1800 calorie diet. NovoLog low-dose sliding scale. Check blood sugars a.c. and h.s. Continue home medication. low blood sugar holding all diabetic medicine if glucose less than 150. 4. History of hyperlipidemia. The patient has high LFTs with myalgia and I will hold Gemfibrozil and Zocor. 5. History of hypothyroidism. The patient was on levothyroxine 100 mcg p.o. daily. The patient's TSH is 0.35. Decrease the levothyroxine to 88 mcg p.o. daily. 6. History of hypertension. Continue home medication. 7. Vitamin D deficiency. Continue home medication. 8. DVT prophylaxis. SCD. 9. GI prophylaxis. Protonix 40 mg p.o. daily. 10. Low platelet discontinue heparin. Check CBC, CMP in the morning. We are going to manage the patient on a daily basis and make recommendation on a daily basis. Discussed Condition with: Patient Ricardo Bruce MD Apr 24, 2017 08:45
[2017-04-24 08:57] LABS: CKMB 150.4 NG/ML (0.5-3.6)
[2017-04-24] MEDS ORDERED: PNEUMOCOCCAL POLYVALENT INJ 25 MCG/0.5 ML SYR IM ONE (09:00)
[2017-04-24] MEDS: SODIUM CHLOR 0.45% 1000 ML INJ 1,000 ML IV SCH ×2 (09:40→17:53)
--- NOTE | 2017-04-24 10:57 | HHI.NPPN ---
Subjective Renal Failure: Chronic, Acute Interval History Lying in bed. Still reporting muscle fatigue, cramping, aching. Renal function is better. (Viviana Edward) Review of Systems General Constitutional: Fatigue (Viviana Edward) Musculoskeletal MS: Pain/Stiffness MS Remarks muscle aches (Viviana Edward) Objective Data Data 04/23/17 04/24/17 19:00 07:00 Intake Total 1000 ml 4400 ml Balance 1000 ml 4400 ml Intake Oral 1000 ml IV Total 4400 ml # Voids 5 2 # Bowel Movements 3 0 Vital Signs Date Time Temp Pulse Resp B/P Pulse Ox O2 Delivery O2 Flow Rate FiO2 04/24/17 08:00 97.4 57 18 140/73 95 04/24/17 04:00 97.2 68 16 132/75 100 04/23/17 23:01 97.2 58 16 144/77 96 04/23/17 21:12 97.5 63 18 151/84 98 04/23/17 20:00 51 04/23/17 17:40 18 04/23/17 16:00 97.1 64 17 133/81 98 04/23/17 12:00 97.8 73 19 152/80 100 (Viviana Edward) -: 04/24/17 0503 04/24/17 0503 Physical Exam General Appearance: Well Developed, Well Nourished, No Acute Distress, Comfortable ( Viviana Edward) Eyes Eye Exam: Pupils Equal, Pupils Reactive, Sclera White, Extraocular Movement Intact (Viviana Edward) Throat Throat Exam: Oral Mucosa [place] & Moist, Oral Pharynx Normal (Viviana Edward) Neck Neck Exam: Neck Supple, Trachea Midline (Viviana Edward) Pulmonary Resp Exam: Clear Bilaterally, Breath Sounds Equal, No Distress (Viviana Edward) Cardiology CV Exam: Regular, Normal Sinus Rhythm, Good Perfusion (Viviana Edward) Gastrointestinal/Abdomen GI Exam: Soft, Non-Tender, Bowel Sounds Present (Viviana Edward) Musculoskeletal MS Exam: Normal Tone, Good Strength (Viviana Edward) Integumentary Skin Exam: Clear, Warm, Dry, Intact (Viviana Edward) Extremeties Extremities Exam: No Edema, Pedal Pulses Palpable (Viviana Edward) Neurologic Neuro Exam: Alert, Awake, Oriented, Speech Clear, Moving All Extremities, No Focal Deficits (Viviana Edward) Psychiatric Psych Exam: Appropriate Responses (Viviana Edward) PUD Prophylasis PUD Prophylaxis: Protonix (Viviana Edward) Assessment/Plan Discussed Condition With: Patient, Relative Assessment Summary: APRYL/Acute Renal Failure, Hypertension, Diabetes Mellitus Electrolyte Assessment: Hypernatremia Problem List: (1) Acute renal insufficiency Plan: baseline CKD 3 APRYL due to rhabdomyolysis renal function is improving slightly hypernatremic IVF changed to 1/2 NS, bicarb stopped oral water intake encouraged, mobility encouraged she is non oliguric at this time, continue IVF, follow renal indices avoid nephrotoxins including dye studies (2) Rhabdomyolysis Plan: This is likely due to a combination of gemfibrozil with simvastatin, along with calcium channel blockers these have been held continue IVF (3) Transaminitis Plan: Due to lipid-lowering agent monitor labs, continue IVF (4) Diabetes Plan: Monitor blood glucose, goal 140-180 mg/dL (5) Hypertension Plan: Monitor blood pressure resume home medications when appropriate (Viviana Edward) Plan Patient has developed APRYL due to rhabdomyolysis. APRYL improving. She has developed hypernatremia, IVF changed to 1/2NS. (Choco Lewis MD) Problem Qualifiers (1) Rhabdomyolysis: Qualified Code: M62.82 - Non-traumatic rhabdomyolysis Viviana Edward Apr 24, 2017 10:57 Choco Lewis MD Apr 25, 2017 09:57
[2017-04-24 12:00] VITALS: BP 132/75; PULSE 61; RESP 19; TEMP 97.7; O2SAT 96
[2017-04-24 16:00] VITALS: BP 142/95; PULSE 58; RESP 18; TEMP 97.5; O2SAT 92
[2017-04-24 20:00] VITALS: BP 147/76; PULSE 65; RESP 18; TEMP 98.1; O2SAT 98
[2017-04-24 20:10] VITALS: PULSE 57
[2017-04-25] VITALS: BP 147/79; PULSE 65; RESP 18; TEMP 98.3; O2SAT 97
[2017-04-25] MEDS: SODIUM CHLOR 0.45% 1000 ML INJ 1,000 ML IV SCH ×3 (03:56→21:27)
[2017-04-25 04:00] VITALS: BP 138/72; PULSE 63; RESP 16; TEMP 97.6; O2SAT 95
[2017-04-25] MEDS: LEVOTHYROXINE SODIUM 88 MCG TAB PO SCH (05:51)
[2017-04-25] MEDS: INSULIN ASPART SUPPLEMENTAL SCALE SQ SCH ×3 (05:52→17:10)
[2017-04-25 06:35] LABS: AUTOMATED NEUTROPHIL # 7.4 TH/MM3 (1.8-7.7); BASOPHIL # 0.1 TH/MM3 (0-0.2); BASOPHIL % 0.7 % (0.0-2.0); EOSINOPHIL # 0.2 TH/MM3 (0-0.4); HEMATOCRIT 33.1 % (35.0-46.0); HEMO FLAGS DIFF FINAL; LYMPH % 18.8 % (9.0-44.0); MEAN CELL VOLUME 87.2 FL (80.0-100.0); MEAN CORPUSCULAR HEMOGLOBIN 28.8 PG (27.0-34.0); MONO % 6.4 % (0.0-8.0); NEUT % 72.1 % (16.0-70.0); PLATELET COUNT 260 TH/MM3 (150-450); RED CELL DISTRIBUTION WIDTH 12.9 % (11.6-17.2); WHITE BLOOD COUNT 10.4 TH/MM3 (4.0-11.0)
[2017-04-25 06:42] LABS: CHLORIDE 110 MEQ/L (98-107); POTASSIUM 3.7 MEQ/L (3.5-5.1); SODIUM (NA) 143 MEQ/L (136-145)
[2017-04-25 07:01] LABS: ALKALINE PHOSPHATASE 97 U/L (45-117); ALT (GPT) 336 U/L (10-53); ANION GAP 8 MEQ/L (5-15); AST (GOT) 586 U/L (15-37); BICARBONATE 25.1 MEQ/L (21.0-32.0); BLOOD UREA NITROGEN 36 MG/DL (7-18); GLOMERULAR FILTRATION RATE 33 ML/MIN (>89); TOTAL BILIRUBIN ADULT 0.2 MG/DL (0.2-1.0)
[2017-04-25 07:24] LABS: CREATINE KINASE 12786 U/L (26-192)
[2017-04-25 08:00] VITALS: BP 160/71; PULSE 54; PULSE 57; RESP 20; TEMP 97.3; O2SAT 96
[2017-04-25] MEDS: ASPIRIN 81 MG CHEW TAB CHEW SCH (08:35)
[2017-04-25] MEDS: PANTOPRAZOLE SOD 40 MG DELAYED RELEASE TAB PO SCH (08:35)
[2017-04-25] MEDS: CHOLECALCIFEROL (VIT D3) 1000 UNIT TAB PO SCH ×3 (08:35→17:05)
[2017-04-25] MEDS: DILTIAZEM-CD 240 MG CAP ER PO SCH (08:35)
--- NOTE | 2017-04-25 08:37 | HHI.NPPN ---
Subjective Renal Failure: Chronic, Acute Interval History Renal function is stable. She is ambulatory, still reporting muscle pain, weakness. (Viviana Edward) Review of Systems General Constitutional: Fatigue (Viviana Edward) Musculoskeletal MS: Pain/Stiffness MS Remarks muscle aches (Viviana Edward) Objective Data Data 04/24/17 04/25/17 19:00 07:00 Intake Total 480 ml 3438 ml Balance 480 ml 3438 ml Intake Oral 480 ml 1000 ml IV Total 2438 ml # Voids 3 # Bowel Movements 0 Vital Signs Date Time Temp Pulse Resp B/P Pulse Ox O2 Delivery O2 Flow Rate FiO2 04/25/17 04:00 97.6 63 16 138/72 95 04/25/17 00:00 98.3 65 18 147/79 97 04/24/17 20:10 57 04/24/17 20:00 98.1 65 18 147/76 98 04/24/17 16:00 97.5 58 18 142/95 92 04/24/17 12:00 97.7 61 19 132/75 96 (Viviana Edward) -: 04/25/17 0603 04/25/17 0603 Physical Exam General Appearance: Well Developed, Well Nourished, No Acute Distress, Comfortable ( Viviana Edward) Eyes Eye Exam: Pupils Equal, Pupils Reactive, Sclera White, Extraocular Movement Intact (Viviana Edward) Throat Throat Exam: Oral Mucosa [place] & Moist, Oral Pharynx Normal (Viviana Edward) Neck Neck Exam: Neck Supple, Trachea Midline (Viviana Edward) Pulmonary Resp Exam: Clear Bilaterally, Breath Sounds Equal, No Distress (Viviana Edward) Cardiology CV Exam: Regular, Normal Sinus Rhythm, Good Perfusion (Viviana Edward) Gastrointestinal/Abdomen GI Exam: Soft, Non-Tender, Bowel Sounds Present (Viviana Edward) Musculoskeletal MS Exam: Normal Tone, Good Strength (Viviana Edward) Integumentary Skin Exam: Clear, Warm, Dry, Intact (Viviana Edward) Extremeties Extremities Exam: No Edema, Pedal Pulses Palpable (Viviana Edward) Neurologic Neuro Exam: Alert, Awake, Oriented, Speech Clear, Moving All Extremities, No Focal Deficits (Viviana Edward) Psychiatric Psych Exam: Appropriate Responses (Viviana Edward) PUD Prophylasis PUD Prophylaxis: Protonix (Viviana Edward) Assessment/Plan Discussed Condition With: Patient, Relative Assessment Summary: APRYL/Acute Renal Failure, Hypertension, Diabetes Mellitus Problem List: (1) Acute renal insufficiency Plan: Secondary to rhabdomyolysis, renal function has stabilized, in December her creatinine was 1.48, this may be her new baseline taper off IVF over next day, monitor renal function Avoid nephrotoxins including dye studies she can likely be discharged tomorrow (2) Rhabdomyolysis Plan: resolving, This was likely due to a combination of gemfibrozil, simvastatin, calcium channel blockers CPK improving (3) CKD (chronic kidney disease) stage 3, GFR 30-59 ml/min Plan: Continue to monitor renal function follows with Dr. Lewis (4) Transaminitis Plan: improving Due to lipid-lowering agent (5) Diabetes Plan: Monitor blood glucose (6) Hypertension Plan: Monitor blood pressure (Viviana Edward) Plan patient's CPK is still high, but improving. Renal function is stable. Has underlying CKD. (Choco Lewis MD) Problem Qualifiers (1) Rhabdomyolysis: Qualified Code: M62.82 - Non-traumatic rhabdomyolysis Viviana Edward Apr 25, 2017 08:37 Choco Lewis MD Apr 25, 2017 10:00
--- NOTE | 2017-04-25 08:38 | HHI.PR ---
Subjective History of Present Illness Patient feel weak and tired but improving.. . d/w ERWIN Dominique Review of Systems Constitutional Constitutional: Fatigue, Weakness Vitals/Results Intake & Output 04/24/17 04/24/17 04/25/17 15:00 23:00 07:00 Intake Total 480 ml 680 ml 2758 ml Balance 480 ml 680 ml 2758 ml Intake Oral 480 ml 680 ml 320 ml IV Total 2438 ml # Voids 2 1 # Bowel Movements 0 0 Vital Signs Vital Signs Date Time Temp Pulse Resp B/P Pulse Ox O2 Delivery O2 Flow Rate FiO2 04/25/17 04:00 97.6 63 16 138/72 95 04/25/17 00:00 98.3 65 18 147/79 97 04/24/17 20:10 57 04/24/17 20:00 98.1 65 18 147/76 98 04/24/17 16:00 97.5 58 18 142/95 92 04/24/17 12:00 97.7 61 19 132/75 96 CBC/BMP: 04/25/17 0603 04/25/17 0603 Lab Results Laboratory Tests Test 04/25/17 06:03 White Blood Count 10.4 TH/MM3 Red Blood Count 3.80 MIL/MM3 Hemoglobin 10.9 GM/DL Hematocrit 33.1 % Mean Corpuscular Volume 87.2 FL Mean Corpuscular Hemoglobin 28.8 PG Mean Corpuscular Hemoglobin 33.0 % Concent Red Cell Distribution Width 12.9 % Platelet Count 260 TH/MM3 Mean Platelet Volume 8.4 FL Neutrophils (%) (Auto) 72.1 % Lymphocytes (%) (Auto) 18.8 % Monocytes (%) (Auto) 6.4 % Eosinophils (%) (Auto) 2.0 % Basophils (%) (Auto) 0.7 % Neutrophils # (Auto) 7.4 TH/MM3 Lymphocytes # (Auto) 2.0 TH/MM3 Monocytes # (Auto) 0.7 TH/MM3 Eosinophils # (Auto) 0.2 TH/MM3 Basophils # (Auto) 0.1 TH/MM3 CBC Comment DIFF FINAL Differential Comment Sodium Level 143 MEQ/L Potassium Level 3.7 MEQ/L Chloride Level 110 MEQ/L Carbon Dioxide Level 25.1 MEQ/L Anion Gap 8 MEQ/L Blood Urea Nitrogen 36 MG/DL Creatinine 1.60 MG/DL Estimat Glomerular Filtration 33 ML/MIN Rate Random Glucose 150 MG/DL Calcium Level 8.7 MG/DL Total Bilirubin 0.2 MG/DL Aspartate Amino Transf 586 U/L (AST/SGOT) Alanine Aminotransferase 336 U/L (ALT/SGPT) Alkaline Phosphatase 97 U/L Total Creatine Kinase 28454 U/L Creatine Kinase MB 132.0 NG/ML Creatine Kinase MB % 1.0 % Total Protein 6.0 GM/DL Albumin 2.4 GM/DL Physical Exam General General Appearance: Well Developed, Well Nourished, No Acute Distress, Comfortable Eyes Eye Exam: Pupils Equal, Pupils Reactive, Sclera White, Extraocular Movement Intact Throat Throat Exam: Oral Mucosa [place] & Moist, Oral Pharynx Normal Neck Neck Exam: Neck Supple, Trachea Midline Pulmonary Resp Exam: Clear Bilaterally, Breath Sounds Equal, No Distress Cardiology CV Exam: Regular, Normal Sinus Rhythm, Good Perfusion Gastrointestinal/Abdomen GI Exam: Soft, Non-Tender, Bowel Sounds Present Musculoskeletal MS Exam: Normal Tone, Good Strength Integumentary Skin Exam: Clear, Warm, Dry, Intact Extremeties Extremities Exam: No Edema, Pedal Pulses Palpable Neurologic Neuro Exam: Alert, Awake, Oriented, Speech Clear, Moving All Extremities, No Focal Deficits Psychiatric Psych Exam: Appropriate Responses PUD Prophylasis PUD Prophylaxis: Protonix Assessment/Plan Assessment/Plan ASSESSMENT/PLAN This is a 56-year-old female who came to the ER diagnosed with: 1. Generalized weakness secondary to rhabdomyolysis. likely due to a combination of gemfibrozil with simvastatin along with calcium channel blockers. CPK Still high nephrology input noted for further recommendation. on half normal saline with sodium bicarbonate at 125 cc an hour, Avoid nephrotoxins and Avoid dye studies 2. Acute on chronic renal failure secondary to rhabdomyolysis. Nephrology input noted, further recommendation per nephrology. 3. Diabetes mellitus. ADA 1800 calorie diet. NovoLog low-dose sliding scale. Check blood sugars a.c. and h.s. Continue home medication. low blood sugar holding all diabetic medicine if glucose less than 150. 4. History of hyperlipidemia. The patient has high LFTs with myalgia and holding Gemfibrozil and Zocor. 5. History of hypothyroidism. The patient was on levothyroxine 100 mcg p.o. daily. The patient's TSH is 0.35. Decrease the levothyroxine to 88 mcg p.o. daily. 6. History of hypertension. Continue home medication. 7. Vitamin D deficiency. Continue home medication. 8. DVT prophylaxis. SCD. 9. GI prophylaxis. Protonix 40 mg p.o. daily. 10. Low platelet discontinued heparin. Check CBC, CMP in the morning. We are going to manage the patient on a daily basis and make recommendation on a daily basis. Discussed Condition with: Patient Ricardo Bruce MD Apr 25, 2017 08:38 Ricardo Bruce MD Apr 25, 2017 08:38
[2017-04-25 12:00] VITALS: BP 138/80; PULSE 65; RESP 18; TEMP 96.8; O2SAT 98
[2017-04-25 16:00] VITALS: BP 121/84; PULSE 70; RESP 18; TEMP 97.6; O2SAT 98
[2017-04-25] MEDS: SODIUM CHLORIDE 0.9% FLUSH 10 ML FLUSH IV FLUSH SCH ×2 (17:10→21:00)
[2017-04-25 20:00] VITALS: BP 149/88; PULSE 64; PULSE 71; RESP 20; TEMP 96.7; O2SAT 99
[2017-04-25] MEDS ORDERED: PLEASE DISCONTINUE PREVIOUS SUPPLEMENTAL SCALE INSULIN ORDERS ONE (20:00)
[2017-04-25] MEDS: ACETAMINOPHEN/HYDROcodone 325 MG/5 MG TAB PO PRN (21:26)
[2017-04-25] MEDS: HIGH DOSE INSULIN NOVOLOG SUPPLEMENTAL SCALE SQ SCH (21:36)
[2017-04-26] VITALS (7 sets, daily range): BP systolic 113–129; BP diastolic 65–73; PULSE 55–94; RESP 20; TEMP 96.8–97.9; O2SAT 91–98
[2017-04-26] MEDS: SODIUM CHLOR 0.45% 1000 ML INJ 1,000 ML IV SCH ×3 (01:00→14:20)
[2017-04-26] MEDS: LEVOTHYROXINE SODIUM 88 MCG TAB PO SCH (05:37)
[2017-04-26] MEDS: ACETAMINOPHEN/HYDROcodone 325 MG/5 MG TAB PO PRN ×4 (05:40→23:49)
[2017-04-26] MEDS: HIGH DOSE INSULIN NOVOLOG SUPPLEMENTAL SCALE SQ SCH ×4 (06:03→22:24)
[2017-04-26 06:22] LABS: AUTOMATED NEUTROPHIL # 8.3 TH/MM3 (1.8-7.7); BASOPHIL # 0.1 TH/MM3 (0-0.2); BASOPHIL % 1.2 % (0.0-2.0); CHLORIDE 110 MEQ/L (98-107); EOSINOPHIL # 0.2 TH/MM3 (0-0.4); EOSINOPHIL % 2.1 % (0.0-4.0); HEMATOCRIT 32.3 % (35.0-46.0); HEMO FLAGS DIFF FINAL; LYMPH % 19.4 % (9.0-44.0); LYMPHOCYTE # 2.3 TH/MM3 (1.0-4.8); MEAN CELL VOLUME 85.3 FL (80.0-100.0); MEAN CORPUSCULAR HEMOGLOBIN 28.7 PG (27.0-34.0); MEAN CORPUSCULAR HGB CONC 33.6 % (32.0-36.0); MONO % 7.4 % (0.0-8.0); NEUT % 69.9 % (16.0-70.0); PLATELET COUNT 272 TH/MM3 (150-450); POTASSIUM 3.4 MEQ/L (3.5-5.1); RED BLOOD COUNT 3.78 MIL/MM3 (4.00-5.30); RED CELL DISTRIBUTION WIDTH 12.8 % (11.6-17.2); SODIUM (NA) 141 MEQ/L (136-145); WHITE BLOOD COUNT 11.8 TH/MM3 (4.0-11.0)
[2017-04-26 06:33] LABS: ANION GAP 10 MEQ/L (5-15); BICARBONATE 20.8 MEQ/L (21.0-32.0)
[2017-04-26 06:38] LABS: ALKALINE PHOSPHATASE 98 U/L (45-117); ALT (GPT) 391 U/L (10-53); AST (GOT) 629 U/L (15-37); BLOOD UREA NITROGEN 35 MG/DL (7-18); GLOMERULAR FILTRATION RATE 39 ML/MIN (>89); TOTAL BILIRUBIN ADULT 0.3 MG/DL (0.2-1.0)
[2017-04-26] MEDS: SODIUM CHLORIDE 0.9% FLUSH 10 ML FLUSH IV FLUSH SCH ×2 (07:37→21:00)
[2017-04-26] MEDS ORDERED: POTASSIUM CHLORIDE 20 MEQ CONTROLLED RELEASE TAB PO ONE (08:30)
--- NOTE | 2017-04-26 08:40 | HHI.PR ---
Subjective History of Present Illness Patient feel weak and tired but improving.. . d/w ERWIN Gomez Low blood sugar holding all diabetic medicine Review of Systems Constitutional Constitutional: Fatigue, Weakness Vitals/Results Intake & Output 04/25/17 04/25/17 04/26/17 15:00 23:00 07:00 Intake Total 1655 ml 1299 ml 974 ml Balance 1655 ml 1299 ml 974 ml Intake Oral 725 ml 240 ml 120 ml IV Total 930 ml 1059 ml 854 ml # Voids 4 2 0 # Bowel Movements 0 0 0 Vital Signs Vital Signs Date Time Temp Pulse Resp B/P Pulse Ox O2 Delivery O2 Flow Rate FiO2 04/26/17 04:00 97.1 65 20 113/65 91 04/26/17 00:00 97.9 61 20 121/69 96 04/25/17 20:00 96.7 71 20 149/88 99 04/25/17 20:00 64 04/25/17 16:00 97.6 70 18 121/84 98 04/25/17 12:00 96.8 65 18 138/80 98 CBC/BMP: 04/26/17 0533 04/26/17 0533 Lab Results Laboratory Tests Test 04/26/17 05:33 White Blood Count 11.8 TH/MM3 Red Blood Count 3.78 MIL/MM3 Hemoglobin 10.9 GM/DL Hematocrit 32.3 % Mean Corpuscular Volume 85.3 FL Mean Corpuscular Hemoglobin 28.7 PG Mean Corpuscular Hemoglobin 33.6 % Concent Red Cell Distribution Width 12.8 % Platelet Count 272 TH/MM3 Mean Platelet Volume 8.7 FL Neutrophils (%) (Auto) 69.9 % Lymphocytes (%) (Auto) 19.4 % Monocytes (%) (Auto) 7.4 % Eosinophils (%) (Auto) 2.1 % Basophils (%) (Auto) 1.2 % Neutrophils # (Auto) 8.3 TH/MM3 Lymphocytes # (Auto) 2.3 TH/MM3 Monocytes # (Auto) 0.9 TH/MM3 Eosinophils # (Auto) 0.2 TH/MM3 Basophils # (Auto) 0.1 TH/MM3 CBC Comment DIFF FINAL Differential Comment Sodium Level 141 MEQ/L Potassium Level 3.4 MEQ/L Chloride Level 110 MEQ/L Carbon Dioxide Level 20.8 MEQ/L Anion Gap 10 MEQ/L Blood Urea Nitrogen 35 MG/DL Creatinine 1.40 MG/DL Estimat Glomerular Filtration 39 ML/MIN Rate Random Glucose 49 MG/DL Calcium Level 8.5 MG/DL Total Bilirubin 0.3 MG/DL Aspartate Amino Transf 629 U/L (AST/SGOT) Alanine Aminotransferase 391 U/L (ALT/SGPT) Alkaline Phosphatase 98 U/L Total Protein 6.2 GM/DL Albumin 2.3 GM/DL Physical Exam General General Appearance: Well Developed, Well Nourished, No Acute Distress, Comfortable Eyes Eye Exam: Pupils Equal, Pupils Reactive, Sclera White, Extraocular Movement Intact Throat Throat Exam: Oral Mucosa [place] & Moist, Oral Pharynx Normal Neck Neck Exam: Neck Supple, Trachea Midline Pulmonary Resp Exam: Clear Bilaterally, Breath Sounds Equal, No Distress Cardiology CV Exam: Regular, Normal Sinus Rhythm, Good Perfusion Gastrointestinal/Abdomen GI Exam: Soft, Non-Tender, Bowel Sounds Present Musculoskeletal MS Exam: Normal Tone, Good Strength Integumentary Skin Exam: Clear, Warm, Dry, Intact Extremeties Extremities Exam: No Edema, Pedal Pulses Palpable Neurologic Neuro Exam: Alert, Awake, Oriented, Speech Clear, Moving All Extremities, No Focal Deficits Psychiatric Psych Exam: Appropriate Responses PUD Prophylasis PUD Prophylaxis: Protonix Assessment/Plan Assessment/Plan ASSESSMENT/PLAN This is a 56-year-old female who came to the ER diagnosed with: 1. Generalized weakness secondary to rhabdomyolysis. likely due to a combination of gemfibrozil with simvastatin along with calcium channel blockers. CPK Still high nephrology input noted for further recommendation. on half normal saline with sodium bicarbonate at 125 cc an hour, Avoid nephrotoxins and Avoid dye studies 2. Acute on chronic renal failure secondary to rhabdomyolysis. Nephrology input noted, further recommendation per nephrology. d/w nephrology. 3. Diabetes mellitus. ADA 1800 calorie diet. NovoLog low-dose sliding scale. Check blood sugars a.c. and h.s. Continue home medication. low blood sugar holding all diabetic medicine if glucose less than 150. 4. History of hyperlipidemia. The patient has high LFTs with myalgia and holding Gemfibrozil and Zocor. 5. History of hypothyroidism. The patient was on levothyroxine 100 mcg p.o. daily. The patient's TSH is 0.35. Decrease the levothyroxine to 88 mcg p.o. daily. 6. History of hypertension. Continue home medication. 7. Vitamin D deficiency. Continue home medication. 8. DVT prophylaxis. SCD. 9. GI prophylaxis. Protonix 40 mg p.o. daily. 10. Low platelet discontinued heparin. Check CBC, CMP in the morning. We are going to manage the patient on a daily basis and make recommendation on a daily basis. Discussed Condition with: Patient Ricardo Bruce MD Apr 26, 2017 08:40
[2017-04-26] MEDS: VICTOZA 0.6 MG SQ SCH (08:56)
[2017-04-26] MEDS: INSULIN DEGLUDEC 40 UNIT SQ SCH (08:56)
[2017-04-26] MEDS: ASPIRIN 81 MG CHEW TAB CHEW SCH (09:11)
[2017-04-26] MEDS: CHOLECALCIFEROL (VIT D3) 1000 UNIT TAB PO SCH ×3 (09:11→17:34)
[2017-04-26] MEDS: DILTIAZEM-CD 240 MG CAP ER PO SCH (09:11)
[2017-04-26] MEDS: PANTOPRAZOLE SOD 40 MG DELAYED RELEASE TAB PO SCH (09:11)
--- NOTE | 2017-04-26 09:48 | HHI.NPPN ---
Subjective Renal Failure: Chronic, Acute Interval History Renal function further improved. CPK pending. Still reporting myalgia and muscle weakness. (Viviana Edward) Review of Systems General Constitutional: Fatigue (Viviana Edward) Musculoskeletal MS: Pain/Stiffness MS Remarks muscle aches, generalized lower extremity weakness (Viviana Edward) Objective Data Data 04/25/17 04/26/17 19:00 07:00 Intake Total 1655 ml 2273 ml Balance 1655 ml 2273 ml Intake Oral 725 ml 360 ml IV Total 930 ml 1913 ml # Voids 4 2 # Bowel Movements 0 0 Vital Signs Date Time Temp Pulse Resp B/P Pulse Ox O2 Delivery O2 Flow Rate FiO2 04/26/17 08:00 97.4 64 20 121/69 96 04/26/17 04:00 97.1 65 20 113/65 91 04/26/17 00:00 97.9 61 20 121/69 96 04/25/17 20:00 96.7 71 20 149/88 99 04/25/17 20:00 64 04/25/17 16:00 97.6 70 18 121/84 98 04/25/17 12:00 96.8 65 18 138/80 98 (Viviana Edward) -: 04/26/17 0533 04/26/17 0533 Physical Exam General Appearance: Well Developed, Well Nourished, No Acute Distress, Comfortable ( Viviana Edward) Eyes Eye Exam: Pupils Equal, Pupils Reactive, Sclera White, Extraocular Movement Intact (Viviana Edward) Throat Throat Exam: Oral Mucosa [place] & Moist, Oral Pharynx Normal (Viviana Edward) Neck Neck Exam: Neck Supple, Trachea Midline (Viviana Edward) Pulmonary Resp Exam: Clear Bilaterally, Breath Sounds Equal, No Distress (Viviana Edward) Cardiology CV Exam: Regular, Normal Sinus Rhythm, Good Perfusion (Viviana Edward) Gastrointestinal/Abdomen GI Exam: Soft, Non-Tender, Bowel Sounds Present (Viviana Edward) Musculoskeletal MS Exam: Joints Intact, Normal Tone (Viviana Edward) Integumentary Skin Exam: Clear, Warm, Dry, Intact (Viviana Edward) Extremeties Extremities Exam: No Edema, Pedal Pulses Palpable (Viviana Edward) Neurologic Neuro Exam: Alert, Awake, Oriented, Speech Clear, Moving All Extremities, No Focal Deficits (Viviana Edward) Psychiatric Psych Exam: Appropriate Responses (Viviana Edward) VTE Prophylaxis Device: SCDs (Viviana Edward) PUD Prophylasis PUD Prophylaxis: Protonix (Viviana Edward) Assessment/Plan Discussed Condition With: Patient, Spouse Assessment Summary: APRYL/Acute Renal Failure, Hypertension, Diabetes Mellitus Problem List: (1) Acute renal insufficiency Plan: APRYL on CKD 3 Secondary to rhabdomyolysis, renal function has improved to baseline continue IVF replace potassium orally follow renal function Avoid nephrotoxins including dye studies (2) Rhabdomyolysis Plan: resolving, This was likely due to a combination of gemfibrozil and statin, she also reported lying in bed for over 2 days CPK was improving, today's level is rising continue IVF (3) Transaminitis Plan: possibly Due to lipid-lowering agent may need US of liver to evaluate (4) Diabetes Plan: Monitor blood glucose she has had episodes of hypoglycemia mostly in the mornings on low dose insulin (5) Hypertension Plan: blood pressure is acceptable continue current plans (Viviana Edward) Plan patient's renal function is stable. However, liver enzymes are higher. Please consider right upper quadrant US, hepatitis profile and GI evaluation. Hypernatremia has improved. (Choco Lewis MD) Problem Qualifiers (1) Rhabdomyolysis: Qualified Code: M62.82 - Non-traumatic rhabdomyolysis Viviana Edward Apr 26, 2017 09:47 Choco Lewis MD Apr 27, 2017 07:48
[2017-04-26 10:48] LABS: CKMB 231.5 NG/ML (0.5-3.6)
[2017-04-26] MEDS: LACTULOSE SYRUP 20 GM/30 ML CUP PO PRN (17:39)
[2017-04-27] VITALS: BP 86/66; PULSE 62; RESP 20; TEMP 96.7; O2SAT 98
[2017-04-27] MEDS: SODIUM CHLOR 0.45% 1000 ML INJ 1,000 ML IV SCH ×2 (01:00→09:35)
[2017-04-27 04:00] VITALS: BP 119/69; PULSE 57; RESP 20; TEMP 97.3; O2SAT 94
[2017-04-27 05:28] LABS: AUTOMATED NEUTROPHIL # 8.4 TH/MM3 (1.8-7.7); BASOPHIL # 0.1 TH/MM3 (0-0.2); BASOPHIL % 0.7 % (0.0-2.0); EOSINOPHIL # 0.2 TH/MM3 (0-0.4); HEMATOCRIT 33.1 % (35.0-46.0); HEMO FLAGS DIFF FINAL; LYMPH % 18.7 % (9.0-44.0); LYMPHOCYTE # 2.2 TH/MM3 (1.0-4.8); MEAN CELL VOLUME 87.3 FL (80.0-100.0); MEAN CORPUSCULAR HGB CONC 33.2 % (32.0-36.0); MONO % 6.2 % (0.0-8.0); NEUT % 72.4 % (16.0-70.0); PLATELET COUNT 290 TH/MM3 (150-450); RED BLOOD COUNT 3.79 MIL/MM3 (4.00-5.30); RED CELL DISTRIBUTION WIDTH 13.2 % (11.6-17.2); WHITE BLOOD COUNT 11.6 TH/MM3 (4.0-11.0)
[2017-04-27 05:40] LABS: CHLORIDE 109 MEQ/L (98-107); POTASSIUM 3.8 MEQ/L (3.5-5.1); SODIUM (NA) 140 MEQ/L (136-145)
[2017-04-27 05:45] LABS: ANION GAP 8 MEQ/L (5-15); BICARBONATE 22.6 MEQ/L (21.0-32.0)
[2017-04-27 05:49] LABS: ALT (GPT) 469 U/L (10-53); AST (GOT) 635 U/L (15-37); BLOOD UREA NITROGEN 35 MG/DL (7-18); GLOMERULAR FILTRATION RATE 39 ML/MIN (>89)
[2017-04-27 05:57] LABS: ALKALINE PHOSPHATASE 97 U/L (45-117); TOTAL BILIRUBIN ADULT 0.3 MG/DL (0.2-1.0)
[2017-04-27] MEDS: ACETAMINOPHEN/HYDROcodone 325 MG/5 MG TAB PO PRN ×2 (06:05→21:23)
[2017-04-27] MEDS: LEVOTHYROXINE SODIUM 88 MCG TAB PO SCH (06:05)
[2017-04-27] MEDS: HIGH DOSE INSULIN NOVOLOG SUPPLEMENTAL SCALE SQ SCH ×4 (07:00→21:00)
--- NOTE | 2017-04-27 08:35 | HHI.PR ---
Subjective History of Present Illness Patient feel weak and tired but improving.. . d/w RN Verna.. Low blood sugar holding all diabetic medicine Review of Systems Constitutional Constitutional: Fatigue, Weakness Vitals/Results Intake & Output 04/26/17 04/26/17 04/27/17 14:59 22:59 06:59 Intake Total 1762 ml 1118 ml 916 ml Balance 1762 ml 1118 ml 916 ml Intake Oral 850 ml 360 ml 120 ml IV Total 912 ml 758 ml 796 ml # Voids 2 2 1 # Bowel Movements 0 0 0 Vital Signs Vital Signs Date Time Temp Pulse Resp B/P Pulse Ox O2 Delivery O2 Flow Rate FiO2 04/27/17 04:00 97.3 57 20 119/69 94 04/27/17 00:00 96.7 62 20 86/66 98 04/26/17 20:06 55 04/26/17 20:00 97.3 58 20 125/68 97 04/26/17 18:15 18 04/26/17 16:00 96.8 58 20 116/66 98 04/26/17 12:00 96.8 94 20 129/73 96 Automatic Cuff CBC/BMP: 04/27/17 0420 04/27/17 0420 Lab Results Laboratory Tests Test 04/27/17 04:20 White Blood Count 11.6 TH/MM3 Red Blood Count 3.79 MIL/MM3 Hemoglobin 11.0 GM/DL Hematocrit 33.1 % Mean Corpuscular Volume 87.3 FL Mean Corpuscular Hemoglobin 29.0 PG Mean Corpuscular Hemoglobin 33.2 % Concent Red Cell Distribution Width 13.2 % Platelet Count 290 TH/MM3 Mean Platelet Volume 8.4 FL Neutrophils (%) (Auto) 72.4 % Lymphocytes (%) (Auto) 18.7 % Monocytes (%) (Auto) 6.2 % Eosinophils (%) (Auto) 2.0 % Basophils (%) (Auto) 0.7 % Neutrophils # (Auto) 8.4 TH/MM3 Lymphocytes # (Auto) 2.2 TH/MM3 Monocytes # (Auto) 0.7 TH/MM3 Eosinophils # (Auto) 0.2 TH/MM3 Basophils # (Auto) 0.1 TH/MM3 CBC Comment DIFF FINAL Differential Comment Sodium Level 140 MEQ/L Potassium Level 3.8 MEQ/L Chloride Level 109 MEQ/L Carbon Dioxide Level 22.6 MEQ/L Anion Gap 8 MEQ/L Blood Urea Nitrogen 35 MG/DL Creatinine 1.40 MG/DL Estimat Glomerular Filtration 39 ML/MIN Rate Random Glucose 162 MG/DL Calcium Level 8.7 MG/DL Total Bilirubin 0.3 MG/DL Aspartate Amino Transf 635 U/L (AST/SGOT) Alanine Aminotransferase 469 U/L (ALT/SGPT) Alkaline Phosphatase 97 U/L Total Protein 6.0 GM/DL Albumin 2.2 GM/DL Physical Exam General General Appearance: Well Developed, Well Nourished, No Acute Distress, Comfortable Eyes Eye Exam: Pupils Equal, Pupils Reactive, Sclera White, Extraocular Movement Intact Throat Throat Exam: Oral Mucosa [place] & Moist, Oral Pharynx Normal Neck Neck Exam: Neck Supple, Trachea Midline Pulmonary Resp Exam: Clear Bilaterally, Breath Sounds Equal, No Distress Cardiology CV Exam: Regular, Normal Sinus Rhythm, Good Perfusion Gastrointestinal/Abdomen GI Exam: Soft, Non-Tender, Bowel Sounds Present Musculoskeletal MS Exam: Joints Intact, Normal Tone Integumentary Skin Exam: Clear, Warm, Dry, Intact Extremeties Extremities Exam: No Edema, Pedal Pulses Palpable Neurologic Neuro Exam: Alert, Awake, Oriented, Speech Clear, Moving All Extremities, No Focal Deficits Psychiatric Psych Exam: Appropriate Responses VTE Prophylaxis VTE Prophylaxis Device: SCDs PUD Prophylasis PUD Prophylaxis: Protonix Assessment/Plan Assessment/Plan ASSESSMENT/PLAN This is a 56-year-old female who came to the ER diagnosed with: 1. Generalized weakness secondary to rhabdomyolysis. likely due to a combination of gemfibrozil with simvastatin along with calcium channel blockers. CPK Still high nephrology input noted for further recommendation. on half normal saline with sodium bicarbonate at 125 cc an hour, Avoid nephrotoxins and Avoid dye studies 2. Acute on chronic renal failure secondary to rhabdomyolysis. Nephrology input noted, further recommendation per nephrology. d/w nephrology. 3. Diabetes mellitus. ADA 1800 calorie diet. NovoLog low-dose sliding scale. Check blood sugars a.c. and h.s. Continue home medication. low blood sugar holding all diabetic medicine if glucose less than 150. 4. History of hyperlipidemia. The patient has high LFTs with myalgia and holding Gemfibrozil and Zocor. 5. History of hypothyroidism. The patient was on levothyroxine 100 mcg p.o. daily. The patient's TSH is 0.35. Decrease the levothyroxine to 88 mcg p.o. daily. 6. History of hypertension. Continue home medication. 7. Vitamin D deficiency. Continue home medication. 8. DVT prophylaxis. SCD. 9. GI prophylaxis. Protonix 40 mg p.o. daily. 10. Low platelet discontinued heparin. Check CBC, CMP in the morning. We are going to manage the patient on a daily basis and make recommendation on a daily basis. Discussed Condition with: Patient Ricardo Bruce MD Apr 27, 2017 08:35
[2017-04-27] MEDS: SODIUM CHLORIDE 0.9% FLUSH 10 ML FLUSH IV FLUSH SCH ×2 (08:41→20:31)
[2017-04-27 08:46] VITALS: BP 119/72; PULSE 58; RESP 19; TEMP 97.8; O2SAT 92
[2017-04-27] MEDS: CHOLECALCIFEROL (VIT D3) 1000 UNIT TAB PO SCH ×3 (09:34→17:04)
[2017-04-27] MEDS: ASPIRIN 81 MG CHEW TAB CHEW SCH (09:34)
[2017-04-27] MEDS: PANTOPRAZOLE SOD 40 MG DELAYED RELEASE TAB PO SCH (09:34)
[2017-04-27] MEDS: DILTIAZEM-CD 240 MG CAP ER PO SCH (09:34)
[2017-04-27] MEDS: INSULIN DEGLUDEC 40 UNIT SQ SCH (09:35)
[2017-04-27] MEDS: VICTOZA 0.6 MG SQ SCH (09:35)
--- NOTE | 2017-04-27 09:53 | HHI.NPPN ---
Subjective Renal Failure: Chronic, Acute Interval History Renal function is stable. Weakness improving. LFTs increasing. (Viviana Edward) Review of Systems General Constitutional: Fatigue (Viviana Edward) Gastrointestinal Gastrointestinal: Constipation (Viviana Edward) Musculoskeletal MS: Pain/Stiffness MS Remarks muscle aches, generalized lower extremity weakness (Viviana Edward) Objective Data Data 04/26/17 04/27/17 19:00 07:00 Intake Total 1762 ml 2034 ml Balance 1762 ml 2034 ml Intake Oral 850 ml 480 ml IV Total 912 ml 1554 ml # Voids 2 3 # Bowel Movements 0 0 Vital Signs Date Time Temp Pulse Resp B/P Pulse Ox O2 Delivery O2 Flow Rate FiO2 04/27/17 08:46 97.8 58 19 119/72 92 04/27/17 04:00 97.3 57 20 119/69 94 04/27/17 00:00 96.7 62 20 86/66 98 04/26/17 20:06 55 04/26/17 20:00 97.3 58 20 125/68 97 04/26/17 18:15 18 04/26/17 16:00 96.8 58 20 116/66 98 04/26/17 12:00 96.8 94 20 129/73 96 Automatic Cuff (Viviana Edward) -: 04/27/17 0420 04/27/17 0420 Physical Exam General Appearance: Well Developed, Well Nourished, No Acute Distress, Comfortable ( Viviana Edward) Eyes Eye Exam: Pupils Equal, Pupils Reactive, Sclera White, Extraocular Movement Intact (Viviana Edward) Throat Throat Exam: Oral Mucosa [place] & Moist, Oral Pharynx Normal (Viviana Edward) Neck Neck Exam: Neck Supple, Trachea Midline (Viviana Edward) Pulmonary Resp Exam: Clear Bilaterally, Breath Sounds Equal, No Distress (Viviana Edward) Cardiology CV Exam: Regular, Normal Sinus Rhythm, Good Perfusion (Viviana Edward) Gastrointestinal/Abdomen GI Exam: Soft, Non-Tender, Bowel Sounds Present (Viviana Edward) Musculoskeletal MS Exam: Joints Intact, Normal Tone (Viviana Edward) Integumentary Skin Exam: Clear, Warm, Dry, Intact (Viviana Edward) Extremeties Extremities Exam: No Edema, Pedal Pulses Palpable (Viviana Edward) Neurologic Neuro Exam: Alert, Awake, Oriented, Speech Clear, Moving All Extremities, No Focal Deficits (Viviana Edward) Psychiatric Psych Exam: Appropriate Responses (Viviana Edward) VTE Prophylaxis Device: SCDs (Viviana Edawrd) PUD Prophylasis PUD Prophylaxis: Protonix (Viviana Edward) Assessment/Plan Discussed Condition With: Patient, Spouse Assessment Summary: APRYL/Acute Renal Failure, Hypertension, Diabetes Mellitus Problem List: (1) Acute renal insufficiency Plan: APRYL on CKD 3 Secondary to rhabdomyolysis, renal function is stable, at baseline continue IVF, rate reduced, on 0.45% NS K was replaced follow renal function Avoid nephrotoxins including dye studies (2) Rhabdomyolysis Plan: This was likely due to a combination of gemfibrozil and statin, she also reported lying in bed for over 2 days CPK was improving but now increasing continue IVF (3) Transaminitis Plan: LFTs increasing, unknown etiology denies pain, Nausea/vomiting GI has been consulted (4) Diabetes Plan: Monitor blood glucose, has had hypoglycemic episodes on insulin therapy (5) Hypertension Plan: blood pressure is acceptable continue current plans (Viviana Edward) Plan patient was seen and examined. Agree with above assessment and plan. Renal function is at baseline, LFTs have not improved. Also, CPK remains high. ( Choco Lewis MD) Problem Qualifiers (1) Rhabdomyolysis: Qualified Code: M62.82 - Non-traumatic rhabdomyolysis Viviana Edward Apr 27, 2017 09:53 Choco Lewis MD Apr 27, 2017 21:30
[2017-04-27 11:28] LABS: CKMB 278.8 NG/ML (0.5-3.6)
[2017-04-27 13:18] VITALS: BP 147/84; PULSE 65; RESP 19; TEMP 96; O2SAT 100
[2017-04-27 16:40] VITALS: BP 142/75; PULSE 72; RESP 19; TEMP 95.6; O2SAT 98
--- NOTE | 2017-04-27 17:02 | MB ---
cc: LIBBY OLIVIER M.D., GIERBOLINI, JOSE R. M.D. DATE OF CONSULTATION: April 27, 2017 REASON FOR CONSULTATION Elevated liver function tests. HISTORY OF PRESENT ILLNESS: Miss Butler is a 56-year-old lady who basically presented with rhabdomyolysis. She has been taking gemfibrozil and simvastatin was found to have markedly elevated liver function tests. She has essentially AST and ALT elevation. The pattern is suggestive of injuries from either rhabdomyolysis, shock liver, versus drug induced liver damage. GI service has been consulted for further recommendations. REVIEW OF SYSTEMS The patient has no symptoms at this time. No icterus. No abdominal pain reported. ALLERGIES SULFA DRUGS. MEDICATIONS: Insulin PAST MEDICAL HISTORY: 1. Diabetes. 2. Hypertension. 3. Hyperlipidemia. 4. Coronary artery disease. 5. Chronic kidney disease 6. Constipation 7. Myocardial infarction in the past. 8. Hypothyroidism. PAST SURGICAL HISTORY: Cardiac catheterization and stent placement in the past. MEDICATIONS Include 1. Insulin 2. Lactosa. 3. Gemfibrozil. 4. Zocor 5. Levothyroxine. 6. Diltiazem 7. aspirin FAMILY HISTORY: Noncontributory. SOCIAL HISTORY Previous history of smoking and marijuana use. PHYSICAL EXAMINATION: IN GENERAL: The physical examination reveals a well-nourished lady in no apparent distress. VITAL SIGNS: The vital signs are stable. HEAD/NECK: Head and neck examination anicteric sclerae. CHEST: Bilateral air entry with rales. ABDOMEN: The abdomen is obese, soft, nontender, No hepatosplenomegaly appreciated. CENTRAL NERVOUS SYSTEM: The central nervous system examination is nonfocal, rectal examination was deferred at this time. LABORATORY FINDINGS: The labs reveal a hemoglobin of 11.7, platelets 290, creatinine 1.40, AST is 635, ALT is 469. Total bilirubin is 0.3. IMPRESSION Elevated liver function tests probably secondary to rhabdomyolysis versus shocked liver versus a statin drugs. RECOMMENDATIONS The patient's statin drugs have been stopped, renal service is managing the rhabdomyolysis. Continue to monitor liver function tests I expected that they would show improvement slowly over the next couple of days. I have recommended an ultrasound of the liver and gallbladder hepatitis serologies and immunology's have been ordered. We will follow with you. Thank you for this referral. MD Candida Rivera /3:24 PM /4:51 PM
[2017-04-27] MEDS: LACTULOSE SYRUP 20 GM/30 ML CUP PO PRN (17:52)
[2017-04-27 20:00] VITALS: BP 130/68; PULSE 65; RESP 20; TEMP 99.1; O2SAT 97
[2017-04-28] VITALS: BP 135/76; PULSE 79; RESP 20; TEMP 98; O2SAT 97
[2017-04-28] MEDS: SODIUM CHLOR 0.45% 1000 ML INJ 1,000 ML IV SCH ×2 (01:30→17:38)
[2017-04-28 04:00] VITALS: BP 121/69; PULSE 71; RESP 20; TEMP 98.8; O2SAT 95
[2017-04-28] MEDS: LEVOTHYROXINE SODIUM 88 MCG TAB PO SCH (06:00)
[2017-04-28 06:49] LABS: AUTOMATED NEUTROPHIL # 7.4 TH/MM3 (1.8-7.7); BASOPHIL # 0.1 TH/MM3 (0-0.2); BASOPHIL % 0.8 % (0.0-2.0); EOSINOPHIL # 0.3 TH/MM3 (0-0.4); EOSINOPHIL % 2.7 % (0.0-4.0); HEMATOCRIT 32.7 % (35.0-46.0); HEMO FLAGS DIFF FINAL; LYMPH % 21.7 % (9.0-44.0); LYMPHOCYTE # 2.4 TH/MM3 (1.0-4.8); MEAN CELL VOLUME 87.5 FL (80.0-100.0); MEAN CORPUSCULAR HEMOGLOBIN 29.2 PG (27.0-34.0); MEAN CORPUSCULAR HGB CONC 33.4 % (32.0-36.0); MONO % 6.4 % (0.0-8.0); NEUT % 68.4 % (16.0-70.0); PLATELET COUNT 294 TH/MM3 (150-450); RED BLOOD COUNT 3.74 MIL/MM3 (4.00-5.30); RED CELL DISTRIBUTION WIDTH 13.7 % (11.6-17.2); WHITE BLOOD COUNT 10.9 TH/MM3 (4.0-11.0)
[2017-04-28 06:58] LABS: CHLORIDE 109 MEQ/L (98-107); POTASSIUM 3.9 MEQ/L (3.5-5.1); SODIUM (NA) 140 MEQ/L (136-145)
[2017-04-28 07:04] LABS: BLOOD UREA NITROGEN 35 MG/DL (7-18)
[2017-04-28 07:05] LABS: ANION GAP 9 MEQ/L (5-15); BICARBONATE 22.3 MEQ/L (21.0-32.0)
[2017-04-28 07:07] LABS: AST (GOT) 482 U/L (15-37); GLOMERULAR FILTRATION RATE 39 ML/MIN (>89)
[2017-04-28 07:08] LABS: ALKALINE PHOSPHATASE 92 U/L (45-117)
[2017-04-28 07:09] LABS: TOTAL BILIRUBIN ADULT 0.4 MG/DL (0.2-1.0)
[2017-04-28 07:18] LABS: ALT (GPT) 484 U/L (10-53)
[2017-04-28] MEDS: DILTIAZEM-CD 240 MG CAP ER PO SCH (08:25)
[2017-04-28] MEDS: SODIUM CHLORIDE 0.9% FLUSH 10 ML FLUSH IV FLUSH SCH ×2 (08:25→20:48)
[2017-04-28] MEDS: CHOLECALCIFEROL (VIT D3) 1000 UNIT TAB PO SCH ×3 (08:25→18:37)
[2017-04-28] MEDS: PANTOPRAZOLE SOD 40 MG DELAYED RELEASE TAB PO SCH (08:25)
[2017-04-28] MEDS: ASPIRIN 81 MG CHEW TAB CHEW SCH (08:26)
[2017-04-28] MEDS: INSULIN DEGLUDEC 40 UNIT SQ SCH (08:26)
[2017-04-28] MEDS: VICTOZA 0.6 MG SQ SCH (08:26)
[2017-04-28] MEDS: LACTULOSE SYRUP 20 GM/30 ML CUP PO PRN (08:26)
[2017-04-28] MEDS: HIGH DOSE INSULIN NOVOLOG SUPPLEMENTAL SCALE SQ SCH ×4 (08:29→20:51)
--- NOTE | 2017-04-28 08:30 | HHI.PR ---
Subjective History of Present Illness Patient feel weak and tired but improving.. . d/w RN Verna.. Low blood sugar holding all diabetic medicine c/o constipation on Lactulose add Miralax + Colace. Review of Systems Constitutional Constitutional: Fatigue, Weakness Vitals/Results Intake & Output 04/27/17 04/27/17 04/28/17 15:00 23:00 07:00 Intake Total 1490 ml 120 ml Balance 1490 ml 120 ml Intake Oral 1490 ml 120 ml # Voids 8 1 # Bowel Movements 1 Vital Signs Vital Signs Date Time Temp Pulse Resp B/P Pulse Ox O2 Delivery O2 Flow Rate FiO2 04/28/17 04:00 98.8 71 20 121/69 95 04/28/17 00:00 98.0 79 20 135/76 97 04/27/17 22:23 18 04/27/17 20:00 99.1 65 20 130/68 97 04/27/17 16:40 95.6 72 19 142/75 98 04/27/17 13:18 96.0 65 19 147/84 100 04/27/17 08:46 97.8 58 19 119/72 92 CBC/BMP: 04/28/17 0522 04/28/17 0522 Lab Results Laboratory Tests Test 04/28/17 05:22 White Blood Count 10.9 TH/MM3 Red Blood Count 3.74 MIL/MM3 Hemoglobin 10.9 GM/DL Hematocrit 32.7 % Mean Corpuscular Volume 87.5 FL Mean Corpuscular Hemoglobin 29.2 PG Mean Corpuscular Hemoglobin 33.4 % Concent Red Cell Distribution Width 13.7 % Platelet Count 294 TH/MM3 Mean Platelet Volume 8.7 FL Neutrophils (%) (Auto) 68.4 % Lymphocytes (%) (Auto) 21.7 % Monocytes (%) (Auto) 6.4 % Eosinophils (%) (Auto) 2.7 % Basophils (%) (Auto) 0.8 % Neutrophils # (Auto) 7.4 TH/MM3 Lymphocytes # (Auto) 2.4 TH/MM3 Monocytes # (Auto) 0.7 TH/MM3 Eosinophils # (Auto) 0.3 TH/MM3 Basophils # (Auto) 0.1 TH/MM3 CBC Comment DIFF FINAL Differential Comment Sodium Level 140 MEQ/L Potassium Level 3.9 MEQ/L Chloride Level 109 MEQ/L Carbon Dioxide Level 22.3 MEQ/L Anion Gap 9 MEQ/L Blood Urea Nitrogen 35 MG/DL Creatinine 1.40 MG/DL Estimat Glomerular Filtration 39 ML/MIN Rate Random Glucose 171 MG/DL Calcium Level 9.1 MG/DL Total Bilirubin 0.4 MG/DL Aspartate Amino Transf 482 U/L (AST/SGOT) Alanine Aminotransferase 484 U/L (ALT/SGPT) Alkaline Phosphatase 92 U/L Total Protein 5.8 GM/DL Albumin 2.1 GM/DL Physical Exam General General Appearance: Well Developed, Well Nourished, No Acute Distress, Comfortable Eyes Eye Exam: Pupils Equal, Pupils Reactive, Sclera White, Extraocular Movement Intact Throat Throat Exam: Oral Mucosa [place] & Moist, Oral Pharynx Normal Neck Neck Exam: Neck Supple, Trachea Midline Pulmonary Resp Exam: Clear Bilaterally, Breath Sounds Equal, No Distress Cardiology CV Exam: Regular, Normal Sinus Rhythm, Good Perfusion Gastrointestinal/Abdomen GI Exam: Soft, Non-Tender, Bowel Sounds Present Musculoskeletal MS Exam: Joints Intact, Normal Tone Integumentary Skin Exam: Clear, Warm, Dry, Intact Extremeties Extremities Exam: No Edema, Pedal Pulses Palpable Neurologic Neuro Exam: Alert, Awake, Oriented, Speech Clear, Moving All Extremities, No Focal Deficits Psychiatric Psych Exam: Appropriate Responses VTE Prophylaxis VTE Prophylaxis Device: SCDs PUD Prophylasis PUD Prophylaxis: Protonix Assessment/Plan Assessment/Plan ASSESSMENT/PLAN This is a 56-year-old female who came to the ER diagnosed with: 1. Generalized weakness secondary to rhabdomyolysis. likely due to a combination of gemfibrozil with simvastatin along with calcium channel blockers. CPK Still high nephrology input noted for further recommendation. , Avoid nephrotoxins and Avoid dye studies. 2. Acute on chronic renal failure secondary to rhabdomyolysis. Nephrology input noted, further recommendation per nephrology. d/w nephrology. 3. Diabetes mellitus. ADA 1800 calorie diet. NovoLog low-dose sliding scale. Check blood sugars a.c. and h.s. Continue home medication. low blood sugar holding all diabetic medicine if glucose less than 150. 4. History of hyperlipidemia. The patient has high LFTs with myalgia and holding Gemfibrozil and Zocor. 5. History of hypothyroidism. The patient was on levothyroxine 100 mcg p.o. daily. The patient's TSH is 0.35. Decrease the levothyroxine to 88 mcg p.o. daily. 6. History of hypertension. Continue home medication. 7. Vitamin D deficiency. Continue home medication. 8. DVT prophylaxis. SCD. 9. GI prophylaxis. Protonix 40 mg p.o. daily. 10. Low platelet discontinued heparin. 11. c/o constipation on Lactulose add Miralax + Colace. 12. High LFTs ...GI Input noted. Check CBC, CMP in the morning. We are going to manage the patient on a daily basis and make recommendation on a daily basis. Discussed Condition with: Patient Ricardo Bruce MD Apr 28, 2017 08:30
[2017-04-28 08:56] VITALS: BP 122/71; PULSE 74; RESP 19; TEMP 97.2; O2SAT 97
--- NOTE | 2017-04-28 09:04 | RADRPT ---
EXAM DATE/TIME: 04/28/2017 07:48 [facility] COMPARISON: No previous studies available for comparison. INDICATIONS : Increased lab values. MEDICAL HISTORY : Hypothyroidism. Myocardial infarction. Hypercholesterolemia. HTN. Coronary artery disease. Dyspnea. D iabetes. Renal disease and failure. Depression. Substance use. Anticoagulant therapy, Aspirin 81mg. SURGICAL HISTORY : Coronary artery stent. Tubal ligation. Cardiac cath. ENCOUNTER: Initial ACUITY: 2 days PAIN SCORE: 0/10 LOCATION: Bilateral upper quadrant MEASUREMENTS: LIVER: 17.5 cm length COMMON DUCT: 4 mm RIGHT KIDNEY: 9.0 x 4.7 x 5.0 cm SPLEEN: 8.4 cm length FINDINGS: LIVER: Normal echotexture without focal lesion or ductal dilatation. COMMON DUCT: No intraluminal mass or stone visualized. GALLBLADDER: Contains no stones, demonstrates no wall thickening or pericholecystic fluid. PANCREAS: The visualized portions are within normal limits. RIGHT KIDNEY: Small 2 cm cyst lower pole. SPLEEN: No focal lesion. Trace free fluid is evident. CONCLUSION: Trace of free fluid otherwise negative for an acute process. Darien Aguilar MD FACR on April 28, 2017 at 9:01 Board Certified Radiologist. This report was verified electronically.
[2017-04-28] MEDS ORDERED: SOD PHOSPHATE/SOD BIPHOSPHATE (ADULT) ENEMA 133ML RECTAL ONE (09:45)
[2017-04-28] MEDS ORDERED: DOCUSATE SODIUM 100 MG CAP PO ONE (09:45)
--- NOTE | 2017-04-28 09:52 | HHI.GIFU ---
Subjective Remarks sitting in chair, feeling better, less general body aches Objective Vitals I&O Vital Signs Date Time Temp Pulse Resp B/P Pulse Ox O2 Delivery O2 Flow Rate FiO2 04/28/17 08:56 97.2 74 19 122/71 97 04/28/17 04:00 98.8 71 20 121/69 95 04/28/17 00:00 98.0 79 20 135/76 97 04/27/17 22:23 18 04/27/17 20:00 99.1 65 20 130/68 97 04/27/17 16:40 95.6 72 19 142/75 98 04/27/17 13:18 96.0 65 19 147/84 100 I/O 04/27/17 04/27/17 04/27/17 04/28/17 04/28/17 04/28/17 07:00 15:00 23:00 07:00 15:00 23:00 Intake Total 916 ml 1490 ml 120 ml Balance 916 ml 1490 ml 120 ml Intake Oral 120 ml 1490 ml 120 ml IV Total 796 ml # Voids 1 8 1 # Bowel Movements 0 1 Laboratory Laboratory Tests Test 04/28/17 05:22 White Blood Count 10.9 Red Blood Count 3.74 Hemoglobin 10.9 Hematocrit 32.7 Mean Corpuscular Volume 87.5 Mean Corpuscular Hemoglobin 29.2 Mean Corpuscular Hemoglobin 33.4 Concent Red Cell Distribution Width 13.7 Platelet Count 294 Mean Platelet Volume 8.7 Neutrophils (%) (Auto) 68.4 Lymphocytes (%) (Auto) 21.7 Monocytes (%) (Auto) 6.4 Eosinophils (%) (Auto) 2.7 Basophils (%) (Auto) 0.8 Neutrophils # (Auto) 7.4 Lymphocytes # (Auto) 2.4 Monocytes # (Auto) 0.7 Eosinophils # (Auto) 0.3 Basophils # (Auto) 0.1 CBC Comment DIFF FINAL Differential Comment Sodium Level 140 Potassium Level 3.9 Chloride Level 109 Carbon Dioxide Level 22.3 Anion Gap 9 Blood Urea Nitrogen 35 Creatinine 1.40 Estimat Glomerular Filtration 39 Rate Random Glucose 171 Calcium Level 9.1 Total Bilirubin 0.4 Aspartate Amino Transf 482 (AST/SGOT) Alanine Aminotransferase 484 (ALT/SGPT) Alkaline Phosphatase 92 Total Protein 5.8 Albumin 2.1 Physical Exam HEENT: Pupils round and reactive to light; normocephalic; atraumatic; no jaundice. Throat is clear. obese NECK: Neck is supple, no JVD, no lymphadenopathy. CHEST: Chest is clear to auscultation and percussion. CARDIAC: Regular rate and rhythm with no murmur gallop or rubs. ABDOMEN: Soft, nondistended, nontender; no hepatosplenomegaly; bowel sounds are present in all four quadrants. obese EXTREMITIES: No clubbing, cyanosis, or edema. SKIN: Normal; no rash; no jaundice. 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 Assessment and Plan Plan sever elevation of LFTs, most likely rhabdo vs ischemia Vs meds (she had been on statins for many years LFTs slightly better await labs results diet as tolerated Alexei Connolly MD Apr 28, 2017 09:52
--- NOTE | 2017-04-28 10:05 | HHI.NPPN ---
Subjective Renal Failure: Chronic, Acute Interval History She had liver US this morning. IVF continues. Renal function is stable. ( Viviana Edward) Review of Systems General Constitutional: Fatigue (Viviana Edward) Gastrointestinal Gastrointestinal: Constipation (Viviana Edward) Musculoskeletal MS: Pain/Stiffness MS Remarks muscle aches, generalized lower extremity weakness (Viviana Edward) Objective Data Data 04/27/17 04/28/17 19:00 07:00 Intake Total 1250 ml 360 ml Balance 1250 ml 360 ml Intake Oral 1250 ml 360 ml # Voids 5 4 # Bowel Movements 1 Vital Signs Date Time Temp Pulse Resp B/P Pulse Ox O2 Delivery O2 Flow Rate FiO2 04/28/17 08:56 97.2 74 19 122/71 97 04/28/17 04:00 98.8 71 20 121/69 95 04/28/17 00:00 98.0 79 20 135/76 97 04/27/17 22:23 18 04/27/17 20:00 99.1 65 20 130/68 97 04/27/17 16:40 95.6 72 19 142/75 98 04/27/17 13:18 96.0 65 19 147/84 100 (Viviana Edward) -: 04/28/17 0522 04/28/17 0522 Imaging Last Impressions Liver Ultrasound 04/28/17 0000 Signed Impressions: Service Date/Time: Friday, April 28, 2017 07:48 - CONCLUSION: Trace of free fluid otherwise negative for an acute process. Darien Aguilar MD FACR (Viviana Edward) Physical Exam General Appearance: Well Developed, Well Nourished, No Acute Distress, Comfortable ( Viviana Edward) Eyes Eye Exam: Pupils Equal, Pupils Reactive, Sclera White, Extraocular Movement Intact (Viviana Edward) Throat Throat Exam: Oral Mucosa [place] & Moist, Oral Pharynx Normal (Viviana Edward) Neck Neck Exam: Neck Supple, Trachea Midline (Viviana Edward) Pulmonary Resp Exam: Clear Bilaterally, Breath Sounds Equal, No Distress (Viviana Edward) Cardiology CV Exam: Regular, Normal Sinus Rhythm, Good Perfusion (Viviana Edward) Gastrointestinal/Abdomen GI Exam: Soft, Non-Tender, Bowel Sounds Present (Viviana Edward) Musculoskeletal MS Exam: Joints Intact, Normal Tone (Viviana Edward) Integumentary Skin Exam: Clear, Warm, Dry, Intact (Viviana Edward) Extremeties Extremities Exam: No Edema, Pedal Pulses Palpable (Viviana Edward) Neurologic Neuro Exam: Alert, Awake, Oriented, Speech Clear, Moving All Extremities, No Focal Deficits (Viviana Edward) Psychiatric Psych Exam: Appropriate Responses (Viviana Edward) VTE Prophylaxis Device: SCDs (Viviana Edward) PUD Prophylasis PUD Prophylaxis: Protonix (Viviana Edward) Assessment/Plan Discussed Condition With: Patient, Spouse Assessment Summary: APRYL/Acute Renal Failure, Hypertension, Diabetes Mellitus Problem List: (1) Acute renal insufficiency Plan: APRYL on CKD 3 Secondary to rhabdomyolysis, renal function is stable and at baseline continue IVF, on 0.45% NS follow renal function Avoid nephrotoxins including dye studies (2) Rhabdomyolysis Plan: This was likely due to a combination of gemfibrozil and statin, she also reported lying in bed for over 2 days CPK has been increasing, repeat in process continue IVF (3) Transaminitis Plan: LFTs increasing GI following, expect improvement, thought to be medication induced and due to rhabdomyolysis US negative for acute process (4) Diabetes Plan: Monitor blood glucose, has had hypoglycemic episodes on insulin therapy (5) Hypertension Plan: blood pressure is acceptable continue current plans (Viviana Edward) Plan patient was seen and examined. Renal function is stable, at baseline. LFTs and CPK have improved. Taper off fluids. (Choco Lewis MD) Problem Qualifiers (1) Rhabdomyolysis: Qualified Code: M62.82 - Non-traumatic rhabdomyolysis Viviana Edward Apr 28, 2017 10:05 Choco Lewis MD Apr 28, 2017 14:22
[2017-04-28] MEDS ORDERED: BISACODYL 10 MG SUPP RECTAL ONE (10:15)
[2017-04-28 10:45] LABS: CKMB 133.1 NG/ML (0.5-3.6)
[2017-04-28 11:29] LABS: ANA SCREEN NEG (NEG)
[2017-04-28 12:35] VITALS: BP 129/63; PULSE 57; RESP 19; TEMP 96.5; O2SAT 95
[2017-04-28 16:00] VITALS: BP 143/71; PULSE 76; RESP 18; TEMP 95.6; O2SAT 99
[2017-04-28 20:00] VITALS: BP 132/70; PULSE 72; RESP 18; TEMP 97.2; O2SAT 98
[2017-04-29] VITALS: BP_SYST 125; BP_SYST 132; BP_DIAS 58; BP_DIAS 70; PULSE 68; PULSE 72; RESP 18; TEMP 97.1; TEMP 97.2; O2SAT 98; O2SAT 99
[2017-04-29 04:00] VITALS: BP 110/61; PULSE 69; RESP 18; TEMP 97.1; O2SAT 96
[2017-04-29] MEDS: LEVOTHYROXINE SODIUM 88 MCG TAB PO SCH (06:42)
[2017-04-29 06:54] LABS: AUTOMATED NEUTROPHIL # 7.7 TH/MM3 (1.8-7.7); BASOPHIL # 0.1 TH/MM3 (0-0.2); BASOPHIL % 0.6 % (0.0-2.0); EOSINOPHIL # 0.2 TH/MM3 (0-0.4); EOSINOPHIL % 2.3 % (0.0-4.0); HEMATOCRIT 33.7 % (35.0-46.0); HEMO FLAGS DIFF FINAL; LYMPH % 16.4 % (9.0-44.0); LYMPHOCYTE # 1.7 TH/MM3 (1.0-4.8); MEAN CELL VOLUME 88.4 FL (80.0-100.0); MEAN CORPUSCULAR HGB CONC 32.8 % (32.0-36.0); MONO % 6.3 % (0.0-8.0); NEUT % 74.4 % (16.0-70.0); PLATELET COUNT 326 TH/MM3 (150-450); RED BLOOD COUNT 3.81 MIL/MM3 (4.00-5.30); RED CELL DISTRIBUTION WIDTH 13.3 % (11.6-17.2); WHITE BLOOD COUNT 10.4 TH/MM3 (4.0-11.0)
[2017-04-29 06:58] LABS: CHLORIDE 108 MEQ/L (98-107); POTASSIUM 3.7 MEQ/L (3.5-5.1); SODIUM (NA) 139 MEQ/L (136-145)
[2017-04-29] MEDS: HIGH DOSE INSULIN NOVOLOG SUPPLEMENTAL SCALE SQ SCH ×4 (07:00→20:59)
[2017-04-29 07:04] LABS: ANION GAP 7 MEQ/L (5-15); BICARBONATE 23.7 MEQ/L (21.0-32.0); BLOOD UREA NITROGEN 34 MG/DL (7-18)
[2017-04-29 07:07] LABS: ALT (GPT) 474 U/L (10-53); AST (GOT) 330 U/L (15-37); GLOMERULAR FILTRATION RATE 39 ML/MIN (>89)
[2017-04-29 07:08] LABS: TOTAL BILIRUBIN ADULT 0.3 MG/DL (0.2-1.0)
[2017-04-29 07:09] LABS: ALKALINE PHOSPHATASE 95 U/L (45-117)
[2017-04-29 08:00] VITALS: BP 121/74; PULSE 69; PULSE 70; RESP 18; TEMP 97.2; O2SAT 98
[2017-04-29] MEDS: SODIUM CHLORIDE 0.9% FLUSH 10 ML FLUSH IV FLUSH SCH ×2 (09:00→20:25)
[2017-04-29] MEDS: PANTOPRAZOLE SOD 40 MG DELAYED RELEASE TAB PO SCH (09:00)
[2017-04-29] MEDS: VICTOZA 0.6 MG SQ SCH (10:20)
[2017-04-29] MEDS: INSULIN DEGLUDEC 40 UNIT SQ SCH (10:20)
[2017-04-29] MEDS: CHOLECALCIFEROL (VIT D3) 1000 UNIT TAB PO SCH ×3 (10:20→17:17)
[2017-04-29] MEDS: ASPIRIN 81 MG CHEW TAB CHEW SCH (10:21)
[2017-04-29] MEDS: DILTIAZEM-CD 240 MG CAP ER PO SCH (10:21)
--- NOTE | 2017-04-29 10:44 | HHI.PR ---
Subjective Subjective Remarks Patient is feeling tired Wants to take shower Had a bowel movement No pain No nausea vomiting No pain a good night sleep review of system for 10 point system otherwise unremarkable Review of Systems Constitutional Constitutional: Fatigue, Weakness Vitals/Results Intake & Output 04/28/17 04/28/17 04/29/17 14:59 22:59 06:59 Intake Total 950 ml 480 ml 120 ml Balance 950 ml 480 ml 120 ml Intake Oral 950 ml 480 ml 120 ml # Voids 4 1 2 # Bowel Movements 0 0 Vital Signs Vital Signs Date Time Temp Pulse Resp B/P Pulse Ox O2 Delivery O2 Flow Rate FiO2 04/29/17 08:00 97.2 70 18 121/74 98 04/29/17 04:00 97.1 69 18 110/61 96 04/29/17 00:00 97.1 68 18 125/58 99 04/28/17 20:00 97.2 72 18 132/70 98 04/28/17 16:00 95.6 76 18 143/71 99 04/28/17 12:35 96.5 57 19 129/63 95 CBC/BMP: 04/29/17 0615 04/29/17 0615 Lab Results Laboratory Tests Test 04/29/17 06:15 White Blood Count 10.4 TH/MM3 Red Blood Count 3.81 MIL/MM3 Hemoglobin 11.1 GM/DL Hematocrit 33.7 % Mean Corpuscular Volume 88.4 FL Mean Corpuscular Hemoglobin 29.0 PG Mean Corpuscular Hemoglobin 32.8 % Concent Red Cell Distribution Width 13.3 % Platelet Count 326 TH/MM3 Mean Platelet Volume 8.4 FL Neutrophils (%) (Auto) 74.4 % Lymphocytes (%) (Auto) 16.4 % Monocytes (%) (Auto) 6.3 % Eosinophils (%) (Auto) 2.3 % Basophils (%) (Auto) 0.6 % Neutrophils # (Auto) 7.7 TH/MM3 Lymphocytes # (Auto) 1.7 TH/MM3 Monocytes # (Auto) 0.7 TH/MM3 Eosinophils # (Auto) 0.2 TH/MM3 Basophils # (Auto) 0.1 TH/MM3 CBC Comment DIFF FINAL Differential Comment Sodium Level 139 MEQ/L Potassium Level 3.7 MEQ/L Chloride Level 108 MEQ/L Carbon Dioxide Level 23.7 MEQ/L Anion Gap 7 MEQ/L Blood Urea Nitrogen 34 MG/DL Creatinine 1.40 MG/DL Estimat Glomerular Filtration 39 ML/MIN Rate Random Glucose 170 MG/DL Calcium Level 9.2 MG/DL Total Bilirubin 0.3 MG/DL Aspartate Amino Transf 330 U/L (AST/SGOT) Alanine Aminotransferase 474 U/L (ALT/SGPT) Alkaline Phosphatase 95 U/L Total Protein 6.2 GM/DL Albumin 2.3 GM/DL Physical Exam General General Appearance: Well Developed, Well Nourished, No Acute Distress, Comfortable Eyes Eye Exam: Pupils Equal, Pupils Reactive, Sclera White, Extraocular Movement Intact Throat Throat Exam: Oral Mucosa [place] & Moist, Oral Pharynx Normal Neck Neck Exam: Neck Supple, Trachea Midline Pulmonary Resp Exam: Clear Bilaterally, Breath Sounds Equal, No Distress Cardiology CV Exam: Regular, Normal Sinus Rhythm, Good Perfusion Gastrointestinal/Abdomen GI Exam: Soft, Non-Tender, Bowel Sounds Present Musculoskeletal MS Exam: Joints Intact, Normal Tone Integumentary Skin Exam: Clear, Warm, Dry, Intact Extremeties Extremities Exam: No Edema, Pedal Pulses Palpable Neurologic Neuro Exam: Alert, Awake, Oriented, Speech Clear, Moving All Extremities, No Focal Deficits Psychiatric Psych Exam: Appropriate Responses VTE Prophylaxis VTE Prophylaxis Device: SCDs PUD Prophylasis PUD Prophylaxis: Protonix Assessment/Plan Assessment/Plan ASSESSMENT/PLAN This is a 56-year-old female who came to the ER diagnosed with: 1. Generalized weakness secondary to rhabdomyolysis. likely due to a combination of gemfibrozil with simvastatin along with calcium channel blockers. CPK level is coming down we will repeat and monitor nephrology input noted for further recommendation. , Avoid nephrotoxins and Avoid dye studies. 2. Acute on chronic renal failure secondary to rhabdomyolysis. Nephrology input noted, further recommendation per nephrology. d/w nephrology. 3. Diabetes mellitus. ADA 1800 calorie diet. NovoLog low-dose sliding scale. Check blood sugars a.c. and h.s. Continue home medication. Patient had low blood sugar yesterday this morning 155 she took no acting insulin yesterday advised to decrease it down to 30 units today. Discussed with RN to monitor it closely. 4. History of hyperlipidemia. The patient has high LFTs with myalgia and holding Gemfibrozil and Zocor. Monitor LFTs. 5. History of hypothyroidism. The patient was on levothyroxine 100 mcg p.o. daily. The patient's TSH is 0.35. Decrease the levothyroxine to 88 mcg p.o. daily. 6. History of hypertension. Continue home medication. Stable blood pressure 7. Vitamin D deficiency. Continue home medication. 8. DVT prophylaxis. SCD. 9. GI prophylaxis. Protonix 40 mg p.o. daily. 10. Low platelet discontinued heparin. 11. c/o constipation on Lactulose add Miralax + Colace. 12. High LFTs ...GI Input noted. Check CBC, CMP and CPK in the morning We are going to manage the patient on a daily basis and make recommendation on a daily basis. Some of previous notes labs and radiological data reviewed Discussed with RN Discussed with patient Chuck Robert MD Apr 29, 2017 10:44
--- NOTE | 2017-04-29 11:10 | HHI.GIFU ---
GI Follow-up Note Consult Follow-up Subjective: Patient laying in bed comfortably, feeling better.No nausea, vomiting, abdominal pain.Tolerating diet well.Constipation .No melena, hematemesis, hematochezia.LFT improving Objective: PHYSICAL EXAMINATION: Vitals signs stable No fever Vital Signs Date Time Temp Pulse Resp B/P Pulse Ox O2 Delivery O2 Flow Rate FiO2 04/29/17 08:00 69 04/29/17 08:00 97.2 70 18 121/74 98 04/29/17 04:00 97.1 69 18 110/61 96 HEENT: Pupils round and reactive to light; normocephalic; atraumatic; no jaundice. Throat is clear, obese NECK: Neck is supple, no JVD, no lymphadenopathy. CHEST: Chest is clear to auscultation and percussion. CARDIAC: Regular rate and rhythm with no murmur gallop or rubs. ABDOMEN: Soft, nondistended, nontender; no hepatosplenomegaly; bowel sounds are present in all four quadrants. EXTREMITIES: No clubbing, cyanosis, or edema. SKIN: Normal; no rash; no jaundice. 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 Available Data (labs, X- Rays, Procedues) : Laboratory Tests Test 04/27/17 04/28/17 04/29/17 19:25 05:22 06:15 Anti-Nuclear Antibody Screen NEG Hepatitis A IgM Antibody NEGATIVE Hepatitis B Surface Antigen NEGATIVE Hepatitis B Core IgM Antibody NEGATIVE Hepatitis C Antibody NEGATIVE White Blood Count 10.9 TH/MM3 10.4 TH/MM3 Red Blood Count 3.74 MIL/MM3 3.81 MIL/MM3 Hemoglobin 10.9 GM/DL 11.1 GM/DL Hematocrit 32.7 % 33.7 % Mean Corpuscular Volume 87.5 FL 88.4 FL Mean Corpuscular Hemoglobin 29.2 PG 29.0 PG Mean Corpuscular Hemoglobin 33.4 % 32.8 % Concent Red Cell Distribution Width 13.7 % 13.3 % Platelet Count 294 TH/MM3 326 TH/MM3 Mean Platelet Volume 8.7 FL 8.4 FL Neutrophils (%) (Auto) 68.4 % 74.4 % Lymphocytes (%) (Auto) 21.7 % 16.4 % Monocytes (%) (Auto) 6.4 % 6.3 % Eosinophils (%) (Auto) 2.7 % 2.3 % Basophils (%) (Auto) 0.8 % 0.6 % Neutrophils # (Auto) 7.4 TH/MM3 7.7 TH/MM3 Lymphocytes # (Auto) 2.4 TH/MM3 1.7 TH/MM3 Monocytes # (Auto) 0.7 TH/MM3 0.7 TH/MM3 Eosinophils # (Auto) 0.3 TH/MM3 0.2 TH/MM3 Basophils # (Auto) 0.1 TH/MM3 0.1 TH/MM3 CBC Comment DIFF FINAL DIFF FINAL Differential Comment Sodium Level 140 MEQ/L 139 MEQ/L Potassium Level 3.9 MEQ/L 3.7 MEQ/L Chloride Level 109 MEQ/L 108 MEQ/L Carbon Dioxide Level 22.3 MEQ/L 23.7 MEQ/L Anion Gap 9 MEQ/L 7 MEQ/L Blood Urea Nitrogen 35 MG/DL 34 MG/DL Creatinine 1.40 MG/DL 1.40 MG/DL Estimat Glomerular Filtration 39 ML/MIN 39 ML/MIN Rate Random Glucose 171 MG/DL 170 MG/DL Calcium Level 9.1 MG/DL 9.2 MG/DL Total Bilirubin 0.4 MG/DL 0.3 MG/DL Aspartate Amino Transf 482 U/L 330 U/L (AST/SGOT) Alanine Aminotransferase 484 U/L 474 U/L (ALT/SGPT) Alkaline Phosphatase 92 U/L 95 U/L Total Creatine Kinase 97530 U/L Creatine Kinase MB 133.1 NG/ML Creatine Kinase MB % 1.3 % Total Protein 5.8 GM/DL 6.2 GM/DL Albumin 2.1 GM/DL 2.3 GM/DL ASSESSMENT/PLAN: rhabdomyolysis possible secondary statins elevated lfts most likely secondary rhabdomyolyses-improving constipation Recommendations iv hydration monitor lfts fu serology miralax milk of mandeep mejiajoycelyn It was a pleasure seeing Jayne Butler Thank you for this consult. Entered by: Ana Morris MD Apr 29, 2017 11:10
[2017-04-29 12:00] VITALS: BP_SYST 139; BP_SYST 142; BP_DIAS 69; BP_DIAS 79; PULSE 65; PULSE 68; RESP 18; RESP 20; TEMP 96.9; TEMP 97.1; O2SAT 96; O2SAT 98
[2017-04-29] MEDS: SODIUM CHLOR 0.45% 1000 ML INJ 1,000 ML IV SCH (13:38)
[2017-04-29 15:50] LABS: GAMMA GT 11 U/L (5-55); TRANSFERRIN IRON PROFILE 173 MG/DL (200-360)
[2017-04-29 15:53] LABS: FERRITIN 83 NG/ML (8-252)
[2017-04-29 16:00] VITALS: BP 131/63; PULSE 64; RESP 20; TEMP 97.2; O2SAT 98
[2017-04-29 20:00] VITALS: BP 127/66; PULSE 69; PULSE 73; RESP 20; TEMP 96.8; O2SAT 98
[2017-04-29] MEDS: ACETAMINOPHEN/HYDROcodone 325 MG/5 MG TAB PO PRN (20:56)
[2017-04-30] VITALS: BP 111/62; PULSE 67; RESP 20; TEMP 96.9; O2SAT 96
[2017-04-30 04:00] VITALS: BP 108/73; PULSE 71; RESP 20; TEMP 97.9; O2SAT 96
[2017-04-30] MEDS: LEVOTHYROXINE SODIUM 88 MCG TAB PO SCH (05:50)
[2017-04-30] MEDS: HIGH DOSE INSULIN NOVOLOG SUPPLEMENTAL SCALE SQ SCH ×4 (06:15→20:31)
[2017-04-30 08:00] VITALS: BP 120/65; PULSE 72; PULSE 73; RESP 20; TEMP 97; O2SAT 97
--- NOTE | 2017-04-30 08:35 | HHI.NPPN ---
Subjective Renal Failure: Chronic, Acute Interval History No renal labs today. Renal function had been improving. LFTs also were improving. She has developed lower extremity edema. Review of Systems General Constitutional: Fatigue Gastrointestinal Gastrointestinal: Constipation Musculoskeletal MS: Pain/Stiffness MS Remarks muscle aches, generalized lower extremity weakness Objective Data Data 04/29/17 04/30/17 19:00 07:00 Intake Total 2044 ml 760 ml Balance 2044 ml 760 ml Intake Oral 750 ml 360 ml IV Total 1294 ml 400 ml # Voids 2 3 # Bowel Movements 0 0 Vital Signs Date Time Temp Pulse Resp B/P Pulse Ox O2 Delivery O2 Flow Rate FiO2 04/30/17 04:00 97.9 71 20 108/73 96 04/30/17 00:00 96.9 67 20 111/62 96 04/29/17 22:04 18 04/29/17 20:00 69 04/29/17 20:00 96.8 73 20 127/66 98 04/29/17 16:00 97.2 64 20 131/63 98 04/29/17 12:00 97.1 65 20 139/69 98 -: 04/29/17 0615 04/29/17 0615 Physical Exam General Appearance: Well Developed, Well Nourished, No Acute Distress, Comfortable Eyes Eye Exam: Pupils Equal, Pupils Reactive, Sclera White, Extraocular Movement Intact Throat Throat Exam: Oral Mucosa [place] & Moist, Oral Pharynx Normal Neck Neck Exam: Neck Supple, Trachea Midline Pulmonary Resp Exam: Clear Bilaterally, Breath Sounds Equal, No Distress Cardiology CV Exam: Regular, Normal Sinus Rhythm, Good Perfusion Gastrointestinal/Abdomen GI Exam: Soft, Non-Tender, Bowel Sounds Present Musculoskeletal MS Exam: Joints Intact, Normal Tone Integumentary Skin Exam: Clear, Warm, Dry, Intact Extremeties Extremities Exam: No Edema, Pedal Pulses Palpable Neurologic Neuro Exam: Alert, Awake, Oriented, Speech Clear, Moving All Extremities, No Focal Deficits Psychiatric Psych Exam: Appropriate Responses VTE Prophylaxis Device: SCDs PUD Prophylasis PUD Prophylaxis: Protonix Assessment/Plan Discussed Condition With: Patient, Spouse Assessment Summary: APRYL/Acute Renal Failure, Hypertension, Diabetes Mellitus Problem List: (1) Acute renal insufficiency Plan: APRYL on CKD 3 Secondary to rhabdomyolysis, rhabdomyolysis probably secondary to combined use of Gemfibrozil and statins. renal function is stable and at baseline I will stop IVF as she has developed lower extremity edema. Encourage oral intake. follow renal function Avoid nephrotoxins including dye studies (2) Rhabdomyolysis Plan: This was likely due to a combination of gemfibrozil and statin, she also reported lying in bed for over 2 days Monitor CPK (3) Transaminitis Plan: Improved. GI following, expect improvement, thought to be medication induced. (4) Diabetes Plan: Monitor blood glucose, has had hypoglycemic episodes on insulin therapy (5) Hypertension Plan: blood pressure is acceptable continue current plans Problem Qualifiers (1) Rhabdomyolysis: Qualified Code: M62.82 - Non-traumatic rhabdomyolysis Choco Lewis MD Apr 30, 2017 08:35
[2017-04-30] MEDS: PANTOPRAZOLE SOD 40 MG DELAYED RELEASE TAB PO SCH (08:50)
[2017-04-30] MEDS: CHOLECALCIFEROL (VIT D3) 1000 UNIT TAB PO SCH ×3 (08:50→18:00)
[2017-04-30] MEDS: DILTIAZEM-CD 240 MG CAP ER PO SCH (08:50)
[2017-04-30] MEDS: ASPIRIN 81 MG CHEW TAB CHEW SCH (08:50)
[2017-04-30] MEDS: POLYETHYLENE GLYCOL 17 GM PKG PO SCH (08:50)
[2017-04-30] MEDS: ACETAMINOPHEN/HYDROcodone 325 MG/5 MG TAB PO PRN ×2 (08:51→21:29)
[2017-04-30] MEDS: SODIUM CHLORIDE 0.9% FLUSH 10 ML FLUSH IV FLUSH SCH ×2 (08:51→19:54)
[2017-04-30] MEDS: INSULIN DEGLUDEC 40 UNIT SQ SCH (08:52)
[2017-04-30] MEDS: VICTOZA 0.6 MG SQ SCH (09:00)
[2017-04-30 10:53] LABS: CKMB 24.3 NG/ML (0.5-3.6)
[2017-04-30 12:00] VITALS: BP 131/67; PULSE 71; RESP 20; TEMP 96.8; O2SAT 97
--- NOTE | 2017-04-30 15:21 | HHI.PR ---
Subjective Subjective Remarks Patient is feeling less tired walking some in room some swelling of lower legs Had a bowel movement No pain No nausea vomiting No pain a good night sleep review of system for 10 point system otherwise unremarkable Review of Systems Constitutional Constitutional: Fatigue, Weakness Vitals/Results Intake & Output 04/29/17 04/29/17 04/30/17 15:00 23:00 07:00 Intake Total 2044 ml 760 ml 0 ml Balance 2044 ml 760 ml 0 ml Intake Oral 750 ml 360 ml 0 ml IV Total 1294 ml 400 ml # Voids 2 3 0 # Bowel Movements 0 0 0 Vital Signs Vital Signs Date Time Temp Pulse Resp B/P Pulse Ox O2 Delivery O2 Flow Rate FiO2 04/30/17 12:00 96.8 71 20 131/67 97 04/30/17 08:00 97.0 73 20 120/65 97 04/30/17 04:00 97.9 71 20 108/73 96 04/30/17 00:00 96.9 67 20 111/62 96 04/29/17 22:04 18 04/29/17 20:00 69 04/29/17 20:00 96.8 73 20 127/66 98 04/29/17 16:00 97.2 64 20 131/63 98 CBC/BMP: 04/29/17 0615 04/29/17 0615 Lab Results Laboratory Tests Test 04/30/17 10:05 Total Creatine Kinase 2289 U/L Creatine Kinase MB 24.3 NG/ML Creatine Kinase MB % 1.1 % Physical Exam General General Appearance: Well Developed, Well Nourished, No Acute Distress, Comfortable Eyes Eye Exam: Pupils Equal, Pupils Reactive, Sclera White, Extraocular Movement Intact Throat Throat Exam: Oral Mucosa [place] & Moist, Oral Pharynx Normal Neck Neck Exam: Neck Supple, Trachea Midline Pulmonary Resp Exam: Clear Bilaterally, Breath Sounds Equal, No Distress Cardiology CV Exam: Regular, Normal Sinus Rhythm, Good Perfusion Gastrointestinal/Abdomen GI Exam: Soft, Non-Tender, Bowel Sounds Present Musculoskeletal MS Exam: Joints Intact, Normal Tone MS Remarks swelling of both leg no tenderness or sign of dvt Integumentary Skin Exam: Clear, Warm, Dry, Intact Extremeties Extremities Exam: No Edema, Pedal Pulses Palpable Neurologic Neuro Exam: Alert, Awake, Oriented, Speech Clear, Moving All Extremities, No Focal Deficits Psychiatric Psych Exam: Appropriate Responses VTE Prophylaxis VTE Prophylaxis Device: SCDs PUD Prophylasis PUD Prophylaxis: Protonix Assessment/Plan Assessment/Plan ASSESSMENT/PLAN This is a 56-year-old female who came to the ER diagnosed with: 1. Generalized weakness secondary to rhabdomyolysis. likely due to a combination of gemfibrozil with simvastatin along with calcium channel blockers. CPK level is coming down we will repeat and monitor nephrology input noted for further recommendation. , Avoid nephrotoxins and Avoid dye studies. 2. Acute on chronic renal failure secondary to rhabdomyolysis. Nephrology input noted, further recommendation per nephrology. james note today 3. Diabetes mellitus. ADA 1800 calorie diet. NovoLog low-dose sliding scale. Check blood sugars a.c. and h.s. Continue home medication. Patient had low blood sugar this morning 81 she took long acting insulin this am advised to decrease it down to 25 in am. Discussed with RN to monitor it closely. 4. History of hyperlipidemia. The patient has high LFTs with myalgia and holding Gemfibrozil and Zocor. Monitor LFTs. 5. History of hypothyroidism. The patient was on levothyroxine 100 mcg p.o. daily. The patient's TSH is 0.35. Decrease the levothyroxine to 88 mcg p.o. daily. 6. History of hypertension. Continue home medication. Stable blood pressure 7. Vitamin D deficiency. Continue home medication. 8. DVT prophylaxis. SCD. 9. GI prophylaxis. Protonix 40 mg p.o. daily. 10. Low platelet discontinued heparin. 11. c/o constipation on Lactulose add Miralax + Colace. 12. High LFTs ...GI Input noted. Check CBC, CMP and CPK in the morning We are going to manage the patient on a daily basis and make recommendation on a daily basis. Some of previous notes labs and radiological data reviewed Discussed with RN Discussed with patient Chuck Robert MD Apr 30, 2017 15:21
[2017-04-30 16:00] VITALS: BP 133/75; PULSE 79; RESP 20; TEMP 96.9; O2SAT 100
[2017-04-30 20:00] VITALS: BP 123/62; PULSE 68; PULSE 69; PULSE 70; RESP 20; TEMP 97.7; O2SAT 96
[2017-05-01] VITALS: BP 128/59; PULSE 69; RESP 16; TEMP 97.1; O2SAT 92
[2017-05-01 04:00] VITALS: BP 112/66; PULSE 57; RESP 18; TEMP 96.9; O2SAT 96
[2017-05-01] MEDS: LEVOTHYROXINE SODIUM 88 MCG TAB PO SCH (06:05)
[2017-05-01] MEDS: HIGH DOSE INSULIN NOVOLOG SUPPLEMENTAL SCALE SQ SCH (06:31)
[2017-05-01 06:46] LABS: HEMATOCRIT 32.4 % (35.0-46.0); MEAN CELL VOLUME 87.2 FL (80.0-100.0); MEAN CORPUSCULAR HEMOGLOBIN 28.1 PG (27.0-34.0); MEAN CORPUSCULAR HGB CONC 32.3 % (32.0-36.0); PLATELET COUNT 353 TH/MM3 (150-450); RED BLOOD COUNT 3.72 MIL/MM3 (4.00-5.30); RED CELL DISTRIBUTION WIDTH 13.5 % (11.6-17.2); REVIEW FLAG FINAL; WHITE BLOOD COUNT 9.2 TH/MM3 (4.0-11.0)
[2017-05-01 07:05] LABS: BICARBONATE 24.4 MEQ/L (21.0-32.0)
[2017-05-01 07:17] VITALS: PULSE 65
[2017-05-01 07:52] LABS: CKMB 16.8 NG/ML (0.5-3.6)
[2017-05-01 08:00] VITALS: BP 126/68; PULSE 69; RESP 20; TEMP 96.8; O2SAT 97
--- NOTE | 2017-05-01 08:24 | HHI.PR ---
Subjective History of Present Illness Patient feel weak and tired but improving.. . d/w ERWIN villarreal to dc home today per nephrology. Review of Systems Constitutional Constitutional: Fatigue, Weakness Vitals/Results Intake & Output 04/30/17 04/30/17 05/01/17 15:00 23:00 07:00 Intake Total 850 ml 400 ml 150 ml Balance 850 ml 400 ml 150 ml Intake Oral 850 ml 400 ml 150 ml # Voids 5 3 2 # Bowel Movements 0 Vital Signs Vital Signs Date Time Temp Pulse Resp B/P Pulse Ox O2 Delivery O2 Flow Rate FiO2 05/01/17 04:00 96.9 57 18 112/66 96 05/01/17 00:00 97.1 69 16 128/59 92 04/30/17 20:00 70 04/30/17 20:00 97.7 68 20 123/62 96 04/30/17 16:00 96.9 79 20 133/75 100 04/30/17 12:00 96.8 71 20 131/67 97 CBC/BMP: 05/01/17 0517 05/01/17 0517 Lab Results Laboratory Tests Test 04/30/17 05/01/17 10:05 05:17 Total Creatine Kinase 2289 U/L 1430 U/L Creatine Kinase MB 24.3 NG/ML 16.8 NG/ML Creatine Kinase MB % 1.1 % 1.2 % White Blood Count 9.2 TH/MM3 Red Blood Count 3.72 MIL/MM3 Hemoglobin 10.4 GM/DL Hematocrit 32.4 % Mean Corpuscular Volume 87.2 FL Mean Corpuscular Hemoglobin 28.1 PG Mean Corpuscular Hemoglobin 32.3 % Concent Red Cell Distribution Width 13.5 % Platelet Count 353 TH/MM3 Mean Platelet Volume 8.1 FL Sodium Level 142 MEQ/L Potassium Level 4.0 MEQ/L Chloride Level 109 MEQ/L Carbon Dioxide Level 24.4 MEQ/L Anion Gap 9 MEQ/L Blood Urea Nitrogen 33 MG/DL Creatinine 1.30 MG/DL Estimat Glomerular Filtration 42 ML/MIN Rate Random Glucose 94 MG/DL Calcium Level 8.5 MG/DL Phosphorus Level 3.0 MG/DL Albumin 2.3 GM/DL Physical Exam General General Appearance: Well Developed, Well Nourished, No Acute Distress, Comfortable Eyes Eye Exam: Pupils Equal, Pupils Reactive, Sclera White, Extraocular Movement Intact Throat Throat Exam: Oral Mucosa [place] & Moist, Oral Pharynx Normal Neck Neck Exam: Neck Supple, Trachea Midline Pulmonary Resp Exam: Clear Bilaterally, Breath Sounds Equal, No Distress Cardiology CV Exam: Regular, Normal Sinus Rhythm, Good Perfusion Gastrointestinal/Abdomen GI Exam: Soft, Non-Tender, Bowel Sounds Present Musculoskeletal MS Exam: Joints Intact, Normal Tone Integumentary Skin Exam: Clear, Warm, Dry, Intact Extremeties Extremities Exam: No Edema, Pedal Pulses Palpable Neurologic Neuro Exam: Alert, Awake, Oriented, Speech Clear, Moving All Extremities, No Focal Deficits Psychiatric Psych Exam: Appropriate Responses VTE Prophylaxis VTE Prophylaxis Device: SCDs PUD Prophylasis PUD Prophylaxis: Protonix Assessment/Plan Assessment/Plan ASSESSMENT/PLAN This is a 56-year-old female who came to the ER diagnosed with: 1. Generalized weakness secondary to rhabdomyolysis. likely due to a combination of gemfibrozil with simvastatin along with calcium channel blockers. CPK level is coming down we will repeat and monitor nephrology input noted for further recommendation. , Avoid nephrotoxins and Avoid dye studies. 2. Acute on chronic renal failure secondary to rhabdomyolysis. Nephrology input noted, further recommendation per nephrology. james note today 3. Diabetes mellitus. ADA 1800 calorie diet. NovoLog low-dose sliding scale. Check blood sugars a.c. and h.s. Continue home medication. Patient had low blood sugar this morning 81 she took long acting insulin this am advised to decrease it down to 25 in am. Discussed with RN to monitor it closely. 4. History of hyperlipidemia. The patient has high LFTs with myalgia and holding Gemfibrozil and Zocor. Monitor LFTs. 5. History of hypothyroidism. The patient was on levothyroxine 100 mcg p.o. daily. The patient's TSH is 0.35. Decrease the levothyroxine to 88 mcg p.o. daily. 6. History of hypertension. Continue home medication. Stable blood pressure 7. Vitamin D deficiency. Continue home medication. 8. DVT prophylaxis. SCD. 9. GI prophylaxis. Protonix 40 mg p.o. daily. 10. Low platelet discontinued heparin. 11. c/o constipation on Lactulose add Miralax + Colace. 12. High LFTs ...GI Input noted. ok to dc home today per nephrology. f/u with pcp/ nephrology 1 week. Discussed Condition with: Patient Ricardo Bruce MD May 01, 2017 08:24 Some of previous notes labs and radiological data reviewed Discussed with RN Discussed with patient Ricardo Bruce MD May 01, 2017 08:24
[2017-05-01] MEDS ORDERED: SYNT88TA PO (08:40)
[2017-05-01] MEDS: ASPIRIN 81 MG CHEW TAB CHEW SCH (09:25)
[2017-05-01] MEDS: SODIUM CHLORIDE 0.9% FLUSH 10 ML FLUSH IV FLUSH SCH (09:25)
[2017-05-01] MEDS: DILTIAZEM-CD 240 MG CAP ER PO SCH (09:26)
[2017-05-01] MEDS: CHOLECALCIFEROL (VIT D3) 1000 UNIT TAB PO SCH (09:26)
[2017-05-01] MEDS: POLYETHYLENE GLYCOL 17 GM PKG PO SCH (09:26)
[2017-05-01] MEDS: PANTOPRAZOLE SOD 40 MG DELAYED RELEASE TAB PO SCH (09:26)
--- NOTE | 2017-05-01 10:10 | HHI.NPPN ---
Subjective Renal Failure: Chronic, Acute Interval History Doing better. Creatinine has improved. No new concerns. (Viviana Edward) Review of Systems General Constitutional: Fatigue (Viviana Edward) Musculoskeletal MS: Pain/Stiffness MS Remarks muscle aches, generalized lower extremity weakness all improving (Viviana Edward) Objective Data Data 04/30/17 05/01/17 19:00 07:00 Intake Total 850 ml 550 ml Balance 850 ml 550 ml Intake Oral 850 ml 550 ml # Voids 5 5 # Bowel Movements 0 Vital Signs Date Time Temp Pulse Resp B/P Pulse Ox O2 Delivery O2 Flow Rate FiO2 05/01/17 04:00 96.9 57 18 112/66 96 05/01/17 00:00 97.1 69 16 128/59 92 04/30/17 20:00 70 04/30/17 20:00 97.7 68 20 123/62 96 04/30/17 16:00 96.9 79 20 133/75 100 04/30/17 12:00 96.8 71 20 131/67 97 (Viviana Edward) -: 05/01/17 0517 05/01/17 0517 Imaging Last Impressions Liver Ultrasound 04/28/17 0000 Signed Impressions: Service Date/Time: Friday, April 28, 2017 07:48 - CONCLUSION: Trace of free fluid otherwise negative for an acute process. Darien Aguilar MD FACR (Viviana Edward) Physical Exam General Appearance: Well Developed, Well Nourished, No Acute Distress, Comfortable ( Viviana Edward) Eyes Eye Exam: Pupils Equal, Pupils Reactive, Sclera White, Extraocular Movement Intact (Viviana Edward) Throat Throat Exam: Oral Mucosa [place] & Moist, Oral Pharynx Normal (Viviana Edward) Neck Neck Exam: Neck Supple, Trachea Midline (Viviana Edward) Pulmonary Resp Exam: Clear Bilaterally, Breath Sounds Equal, No Distress (Viviana Edward) Cardiology CV Exam: Regular, Normal Sinus Rhythm, Good Perfusion (Viviana Edward) Gastrointestinal/Abdomen GI Exam: Soft, Non-Tender, Bowel Sounds Present (Viviana Edward) Musculoskeletal MS Exam: Joints Intact, Normal Tone (Viviana Edward) Integumentary Skin Exam: Clear, Warm, Dry, Intact (Viviana Edward) Extremeties Extremities Exam: No Edema, Pedal Pulses Palpable (Viviana Edward) Neurologic Neuro Exam: Alert, Awake, Oriented, Speech Clear, Moving All Extremities, No Focal Deficits (Vviiana Edward) Psychiatric Psych Exam: Appropriate Responses (Viviana Edward) VTE Prophylaxis Device: SCDs (Viviana Edward) PUD Prophylasis PUD Prophylaxis: Protonix (Viviana Edward) Assessment/Plan Discussed Condition With: Patient, Spouse Assessment Summary: APRYL/Acute Renal Failure, Hypertension, Diabetes Mellitus Problem List: (1) Acute renal insufficiency Plan: APRYL on CKD 3 Secondary to rhabdomyolysis, renal function improved and at baseline lower extremity edema improved stable for discharge from renal perspective we will follow in CKD clinic advised to avoid NSAIDs after discharge oral fluid intake also encouraged (2) Rhabdomyolysis Plan: This was likely due to a combination of gemfibrozil and statin, she also reported lying in bed for over 2 days CPK improving (3) Transaminitis Plan: Improved. GI following, LFTs improving (4) Diabetes Plan: she has had hypoglycemic episodes discussed home insulin regimen she will contact [facility] to inform them of hypoglycemic episodes, may need insulin regimen adjusted advised frequent blood sugar checks (5) Hypertension Plan: blood pressure is acceptable continue current plans (Viviana Edward) Plan patient was seen and examined. Renal function has improved, stable. OK to discharge from renal standpoint. (Choco Lewis MD) Problem Qualifiers (1) Rhabdomyolysis: Qualified Code: M62.82 - Non-traumatic rhabdomyolysis Viviana Edward May 01, 2017 10:10 Choco Lewis MD May 02, 2017 20:07
[2017-05-01] MEDS: INSULIN DEGLUDEC 40 UNIT SQ SCH (10:25)
[2017-05-01] MEDS: VICTOZA 0.6 MG SQ SCH (10:25)
--- NOTE | 2017-05-01 22:55 | HHI.GIFU ---
Subjective Remarks [facility] doing [facility], feels better. Objective Vitals I&O Vital Signs Date Time Temp Pulse Resp B/P Pulse Ox O2 Delivery O2 Flow Rate FiO2 05/01/17 08:00 96.8 69 20 126/68 97 05/01/17 07:17 65 05/01/17 04:00 96.9 57 18 112/66 96 05/01/17 00:00 97.1 69 16 128/59 92 I/O 04/30/17 04/30/17 04/30/17 05/01/17 05/01/17 05/01/17 07:00 15:00 23:00 07:00 15:00 23:00 Intake Total 0 ml 850 ml 400 ml 150 ml 300 ml Balance 0 ml 850 ml 400 ml 150 ml 300 ml Intake Oral 0 ml 850 ml 400 ml 150 ml 300 ml # Voids 0 5 3 2 # Bowel Movements 0 0 Laboratory Laboratory Tests Test 05/01/17 05:17 White Blood Count 9.2 Red Blood Count 3.72 Hemoglobin 10.4 Hematocrit 32.4 Mean Corpuscular Volume 87.2 Mean Corpuscular Hemoglobin 28.1 Mean Corpuscular Hemoglobin 32.3 Concent Red Cell Distribution Width 13.5 Platelet Count 353 Mean Platelet Volume 8.1 Sodium Level 142 Potassium Level 4.0 Chloride Level 109 Carbon Dioxide Level 24.4 Anion Gap 9 Blood Urea Nitrogen 33 Creatinine 1.30 Estimat Glomerular Filtration 42 Rate Random Glucose 94 Calcium Level 8.5 Phosphorus Level 3.0 Total Creatine Kinase 1430 Creatine Kinase MB 16.8 Creatine Kinase MB % 1.2 Albumin 2.3 Physical Exam HEENT: Pupils round and reactive to light; normocephalic; atraumatic; no jaundice. Throat is clear. obese NECK: Neck is supple, no JVD, no lymphadenopathy. CHEST: Chest is clear to auscultation and percussion. CARDIAC: Regular rate and rhythm with no murmur gallop or rubs. ABDOMEN: Soft, nondistended, nontender; no hepatosplenomegaly; bowel sounds are present in all four quadrants. obese EXTREMITIES: No clubbing, cyanosis, or edema. SKIN: Normal; no rash; no jaundice. THREAD TRIMMER: No focal deficits; alert and oriented times three. Assessment and Plan Plan sever elevation of LFTs, most likely rhabdo vs ischemia Vs meds (she had been on statins for many years LFTs better await labs results diet tolerated ok to DC home and FU LFTs and GI clinic as outpatient. Alexei Connolly MD May 01, 2017 22:55
== END 2017-05-01 11:19 | disposition home or self-care (01) | DRG 558 ==
LOC: PHED 13:59 → PHEDA 17:25 → PHEDH 04-23 02:25 → PH3A 04-23 08:43
PROVIDERS: ADMIT Family Medicine; ATTEND Family Medicine
DX: M62.82 Rhabdomyolysis (principal); E87.0 Hyperosmolality and hypernatremia; N17.9 Acute kidney failure, unspecified; E11.22 Type 2 diabetes mellitus with diabetic chronic kidney disease; N18.4 Chronic kidney disease, stage 4 (severe); I12.9 Hypertensive chronic kidney disease with stage 1 through stage 4 chronic kidney disease, or unspecified chronic kidney disease; E03.9 Hypothyroidism, unspecified; E55.9 Vitamin D deficiency, unspecified; E78.5 Hyperlipidemia, unspecified; E86.0 Dehydration; I25.10 Atherosclerotic heart disease of native coronary artery without angina pectoris; I25.2 Old myocardial infarction; J44.9 Chronic obstructive pulmonary disease, unspecified; K59.00 Constipation, unspecified; M62.89 Other specified disorders of muscle; F17.200 Nicotine dependence, unspecified, uncomplicated; Z79.4 Long term (current) use of insulin; Z95.5 Presence of coronary angioplasty implant and graft; D64.9 Anemia, unspecified; F32.9 Major depressive disorder, single episode, unspecified; F12.90 Cannabis use, unspecified, uncomplicated
CPT/HCPCS: 76705; 76937; 80048; 80053; 80069; 80074; 80076; 81001; 82103; 82390; 82550; 82552; 82728; 82784; 82948; 82977; 83516; 83520; 83540; 83550; 84443; 84484; 85025; 85027; 86038; 86255; 87086; 90471; 90732; 93005; 96360; 96361; 97803; G0009; J1644; J1815; J7030; J7040

== ENCOUNTER 2017-09-06 12:02 | Inpatient (IN) | payer BC ==
[~2017-09-06] VITALS: Ht 154.9 cm; Wt 96.1 kg
[~2017-09-06 12:02] MED LIST changes: -ALBU1AER INH; +ASPI-516 CHEW; -ASPI81 PO; -CART180C4 PO; +D31000TA PO; +DILT120T PO; +FISH1000 PO; +HUMALOG SQ; +INSU1INJ13 SQ; -LANTUS2P SC; -LEVO100T4 PO; -NOVOLOGSS SQ; -OMEG100037 PO; +SYNT88TA PO; +VICT18IN SQ; -VITA20002 PO; -ZITHTAB PO; -ZOCO80TA PO
[2017-09-06 12:24] VITALS: BP 191/85; PULSE 77; RESP 16; TEMP 98.2; O2SAT 96
--- NOTE | 2017-09-06 13:15 | PD ---
HPI Chief Complaint: Abdominal Pain Time Seen by Provider: 13:12 Travel History International Travel<30 days: No Contact w/Intl Traveler<30days: No Traveled to known affect area: No History of Present Illness HPI 57-year-old female came to the emergency room with history of left flank pain radiating down to her left lower quadrant and suprapubic area. Patient says that this started yesterday when she was at work. Since then the pain has been constant and worsening to some extent. Pain is worse when she moves around but it's there constantly otherwise too. No history of fever or chills. Patient has been nauseous. She has never had history of kidney stones in the past. She says she has been having dark color urine. Vital signs are suggestive of hypertension. Patient has history of diabetes type 1 and coronary artery disease. She takes 1 baby aspirin and no other blood thinners. [facility] Past Medical History Narrative Medical List of her past medical, surgical, social and family history is reviewed from the nursing note. Hx Anticoagulant Therapy: Yes (asa 81mg) Anemia: Yes Asthma: No Blood Disorders: No Anxiety: No Depression: Yes Heart Rhythm Problems: No Cancer: No Cardiac Catheterization: Yes Cardiovascular Problems: Yes (htn on meds, [place] with one stent) High Cholesterol: Yes Chemotherapy: No Chest Pain: No Congestive Heart Failure: No COPD: No Cerebrovascular Accident: No Coronary Artery Disease: Yes Diabetes: Yes (type 2) Endocrine: Yes Gastrointestinal Disorders: Yes (diarrhea today) Genitourinary: Yes Hypertension: Yes Immune Disorder: No Implanted Vascular Access Dvce: Yes Kidney Stones: No Musculoskeletal: No Neurologic: No Psychiatric: No Reproductive: No Respiratory: No Migraines: No Myocardial Infarction: Yes (Pt states 2007) Radiation Therapy: No Renal Failure: Yes (chronic renal disease) Seizures: No Sickle Cell Disease: No Sleep Apnea: No Thyroid Disease: Yes (Hypo) ?: Not Menopausal: Yes : 3 Para: 2 : 1 Tubal Ligation: Yes Past Surgical History Abdominal Surgery: No Body Medical Devices: coronary stent Cardiac Surgery: Yes (cardiac cath with stent placement) Coronary Stent: Yes (12/30) Ear Surgery: No Endocrine Surgery: No Eye Surgery: No Genitourinary Surgery: No Gynecologic Surgery: No Oral Surgery: No Thoracic Surgery: No Other Surgery: No Social History Alcohol Use: No Tobacco Use: Yes (1/2 PPD) Substance Use: Yes (occasional marajuana) Allergies-Medications (Allergen,Severity, Reaction): Coded Allergies: Sulfa (Sulfonamide Antibiotics) (Unverified Adverse Reaction, Intermediate , RASH, 09/06/17) Comments List of her allergies reviewed from the nursing note. Reported Meds & Prescriptions Reported Meds & Active Scripts Active Synthroid (Levothyroxine Sodium) 88 Mcg Tab 88 Mcg PO DAILY@0600 Reported Lantus Inj (Insulin Glargine) 1,000 Unit/10 Ml Vial 22 Units SQ BID Humalog Inj (Insulin Human Lispro) 1,000 Unit/10 Ml Vial 1-9 Units SQ ACHS Max dose at bedtime:( )units; sugars< 70,(0)units; sugars 150-199,(1)unit; sugars 200-249,(3)units; sugars 250-299,(5)units; sugars 300-349,(7)units; sugars more than 349,(9)units. Fish Oil ([place]-3 Fatty Acids) 1,000 Mg Cap 1 Tab PO DAILY Gemfibrozil 600 Mg Tab 600 Mg PO BIDAC Take 30 minutes prior to breakfast and dinner. Diltiazem (Diltiazem HCl) 120 Mg Tab 240 Mg PO DAILY D3 (Cholecalciferol) 1,000 Unit Tab 1 Tab PO TID Aspirin 81 Mg Chew 81 Mg CHEW DAILY Narrative Medication List of her home medications reviewed from the nursing Review of Systems Except as stated in HPI: all other systems reviewed are Neg Genitourinary: Positive: Flank Pain Physical Exam Narrative GENERAL: Awake, alert, moderate distress SKIN: Focused skin assessment warm/dry. Pale HEAD: Atraumatic. Normocephalic. EYES: Pupils equal and round. No scleral icterus. No injection or drainage. ENT: No nasal bleeding or discharge. Mucous membranes pink and moist. NECK: Trachea midline. No JVD. CARDIOVASCULAR: Regular rate and rhythm. No murmur appreciated. RESPIRATORY: No accessory muscle use. Clear to auscultation. Breath sounds equal bilaterally. GASTROINTESTINAL: Abdomen soft, non-tender, nondistended. Hepatic and splenic margins not palpable. Left CVA tenderness MUSCULOSKELETAL: No obvious deformities. No clubbing. No cyanosis. No edema. NEUROLOGICAL: Awake and alert. No obvious cranial nerve deficits. Motor grossly within normal limits. Normal speech. PSYCHIATRIC: Appropriate mood and affect; insight and judgment normal. Data Data Last Documented VS Orders Orders Complete Blood Count With Diff (09/06/17 13:20) Comprehensive Metabolic Panel (09/06/17 13:20) Urinalysis - C+S If Indicated (09/06/17 13:20) Ct Abd/Pel W/O Iv Contrast (09/06/17 13:20) Ecg Monitoring (09/06/17 13:20) Iv Access Insert/Monitor (09/06/17 13:20) Morphine Inj (Morphine Inj) (09/06/17 13:30) Ondansetron Inj (Zofran Inj) (09/06/17 13:30) Sodium Chloride 0.9% Flush (Ns Flush) (09/06/17 13:30) Sodium Chlor 0.9% 1000 Ml Inj (Ns 1000 M (09/06/17 13:20) Creatine Kinase (Cpk) (09/06/17 13:20) Urine Culture (09/06/17 13:30) CKMB (09/06/17 13:30) CKMB% (09/06/17 13:30) Sodium Chlor 0.9% 1000 Ml Inj (Ns 1000 M (09/06/17 14:45) Ceftriaxone Inj (Rocephin Inj) (09/06/17 14:45) Nitrofurantoin Monohyd Macrocr (Macrobid (09/06/17 14:45) Blood Culture (09/06/17 14:32) Admit Order (Ed Use Only) (09/06/17 15:01) Labs Laboratory Tests Test 09/06/17 13:30 White Blood Count 17.7 TH/MM3 Red Blood Count 4.21 MIL/MM3 Hemoglobin 11.8 GM/DL Hematocrit 36.4 % Mean Corpuscular Volume 86.6 FL Mean Corpuscular Hemoglobin 28.1 PG Mean Corpuscular Hemoglobin Concent 32.4 % Red Cell Distribution Width 13.3 % Platelet Count 368 TH/MM3 Mean Platelet Volume 7.9 FL Neutrophils (%) (Auto) 80.3 % Lymphocytes (%) (Auto) 12.1 % Monocytes (%) (Auto) 5.9 % Eosinophils (%) (Auto) 0.8 % Basophils (%) (Auto) 0.9 % Neutrophils # (Auto) 14.3 TH/MM3 Lymphocytes # (Auto) 2.1 TH/MM3 Monocytes # (Auto) 1.0 TH/MM3 Eosinophils # (Auto) 0.1 TH/MM3 Basophils # (Auto) 0.2 TH/MM3 CBC Comment DIFF FINAL Differential Comment Urine Collection Type CLEAN CATCH Urine Color BROWN Urine Turbidity CLOUDY Urine pH 5.5 Urine Specific [place] 1.016 Urine Protein 300 OR GREATER mg/dL Urine Glucose (UA) NEG mg/dL Urine Ketones TRACE mg/dL Urine Occult Blood LARGE Urine Nitrite POS Urine Bilirubin NEG Urine Leukocyte Esterase LARGE Urine RBC INNUM /hpf Urine WBC 25-49 /hpf Urine WBC Clumps MOD Urine Squamous Epithelial Cells 0-5 /hpf Urine Bacteria MANY /hpf Microscopic Urinalysis Comment CULTURE INDICATED Blood Urea Nitrogen 41 MG/DL Creatinine 1.90 MG/DL Random Glucose 144 MG/DL Total Protein 8.4 GM/DL Albumin 3.3 GM/DL Calcium Level 9.4 MG/DL Alkaline Phosphatase 141 U/L Aspartate Amino Transf (AST/SGOT) 20 U/L Alanine Aminotransferase (ALT/SGPT) 22 U/L Total Bilirubin 0.4 MG/DL Sodium Level 140 MEQ/L Potassium Level 4.6 MEQ/L Chloride Level 105 MEQ/L Carbon Dioxide Level 24.0 MEQ/L Anion Gap 11 MEQ/L Estimat Glomerular Filtration Rate 27 ML/MIN Total Creatine Kinase 223 U/L Creatine Kinase MB 3.5 NG/ML Creatine Kinase MB % 1.6 % [facility] Medical Decision Making Medical Screen Exam Complete: Yes Emergency Medical Condition: Yes Medical Record Reviewed: Yes Differential Diagnosis Ureteral colic, pyelonephritis, rhabdomyolysis Narrative Course 2:28 PM blood test results of back and patient has leukocytosis. Chemistry is significant for slightly elevated CPK. UA is grossly positive for UTI as well as a lot of protein and clumps of WBC. I have given her a dose of IV Rocephin and Macrobid. Patient is getting total of 2 L of IV fluid bolus patient was medicated for pain. Given the color of her urine and leukocytosis and the fact that she is a type I diabetic I think she should be admitted at least for 24 hours for IV antibiotics. I explained this to the patient and she is in agreement. Awaiting for the hospitalist call back. Procedures EKG Prior to Arrival: No Sepsis Criteria SIRS Criteria (2 or more): WBC > 98731, < 4000 or > 10% bands Sepsis Criteria (SIRS+source): Infect source susp/known Diagnosis Primary Impression: Pyelonephritis Additional Impressions: Leukocytosis Qualified Codes: D72.829 - Elevated white blood cell count, unspecified SIRS (systemic inflammatory response syndrome) Admitting Information Admitting Physician Requests: Observation Scripts Ciprofloxacin (Ciprofloxacin) 500 Mg Tab 500 MG PO BID for Infection, #14 TAB 0 Refills Prov: Wendy Escudero MD 09/08/17 Jerry Naranjo MD Sep 06, 2017 13:15
[2017-09-06] MEDS ORDERED: SODIUM CHLOR 0.9% 1000 ML INJ 1,000 ML IV ONE ×2 (13:20→14:45)
[2017-09-06] MEDS ORDERED: SODIUM CHLORIDE 0.9% FLUSH 10 ML FLUSH IVF PRN (13:30)
[2017-09-06] MEDS ORDERED: MORPHINE SULFATE 4 MG/ML INJ IV PUSH ONE (13:30)
[2017-09-06] MEDS ORDERED: ONDANSETRON HCL 4 MG/2 ML VIAL IV PUSH ONE (13:30)
[2017-09-06 13:48] VITALS: BP 126/86; PULSE 67; RESP 16; O2SAT 97
[2017-09-06] MEDS ORDERED: LANTUS2P SQ (13:52)
[2017-09-06 14:01] LABS: AUTOMATED NEUTROPHIL # 14.3 TH/MM3 (1.8-7.7); BASOPHIL # 0.2 TH/MM3 (0-0.2); BASOPHIL % 0.9 % (0.0-2.0); EOSINOPHIL # 0.1 TH/MM3 (0-0.4); EOSINOPHIL % 0.8 % (0.0-4.0); HEMATOCRIT 36.4 % (35.0-46.0); HEMO FLAGS DIFF FINAL; LYMPH % 12.1 % (9.0-44.0); LYMPHOCYTE # 2.1 TH/MM3 (1.0-4.8); MEAN CELL VOLUME 86.6 FL (80.0-100.0); MEAN CORPUSCULAR HEMOGLOBIN 28.1 PG (27.0-34.0); MEAN CORPUSCULAR HGB CONC 32.4 % (32.0-36.0); MONO % 5.9 % (0.0-8.0); NEUT % 80.3 % (16.0-70.0); PLATELET COUNT 368 TH/MM3 (150-450); RED BLOOD COUNT 4.21 MIL/MM3 (4.00-5.30); RED CELL DISTRIBUTION WIDTH 13.3 % (11.6-17.2); WHITE BLOOD COUNT 17.7 TH/MM3 (4.0-11.0)
[2017-09-06 14:07] LABS: BLOOD, URINE LARGE (NEG); GLUCOSE,URINE NEG (NEG); KETONE, URINE TRACE mg/dL (NEG); NITRITE,URINE POS (NEG); PH, URINE 5.5 (5.0-8.5)
[2017-09-06 14:12] LABS: METHOD OF COLLECTION CLEAN CATCH
[2017-09-06 14:13] LABS: URINE COLOR BROWN (YELLW/STRAW)
[2017-09-06 14:17] LABS: RBC, URINE INNUM /hpf (0-3); SQUAMOUS EPITHELIAL CELL URINE 0-5 /hpf (0-5)
[2017-09-06 14:18] LABS: BACTERIA, URINE MANY /hpf; COMMENT (UR) CULTURE INDICATED; CULTURE IF INDICATED CULTURE INDICATED
[2017-09-06 14:19] LABS: CHLORIDE 105 MEQ/L (98-107); POTASSIUM 4.6 MEQ/L (3.5-5.1); SODIUM (NA) 140 MEQ/L (136-145)
[2017-09-06 14:23] LABS: ANION GAP 11 MEQ/L (5-15)
[2017-09-06 14:24] LABS: BLOOD UREA NITROGEN 41 MG/DL (7-18)
[2017-09-06 14:27] LABS: ALT (GPT) 22 U/L (10-53); AST (GOT) 20 U/L (15-37); GLOMERULAR FILTRATION RATE 27 ML/MIN (>89)
[2017-09-06 14:28] LABS: TOTAL BILIRUBIN ADULT 0.4 MG/DL (0.2-1.0)
[2017-09-06 14:29] LABS: CREATINE KINASE 223 U/L (26-192)
--- NOTE | 2017-09-06 14:29 | RADRPT ---
EXAM DATE/TIME: 09/06/2017 13:54 [place] COMPARISON: No previous studies available for comparison. INDICATIONS : Bilateral low abdominal pain and hematuria. ORAL CONTRAST: No oral contrast ingested. RADIATION DOSE: 27.57 CTDIvol (mGy) ; Patient body habitus MEDICAL HISTORY : Renal failure, chronic. Myocardial infarction. Diabetes mellitus type 2.Hypertension. SURGICAL HISTORY : Coronary artery stent. Tubal ligation. ENCOUNTER: Initial ACUITY: 1 day PAIN SCALE: 8/10 LOCATION: Bilateral lower quadrant TECHNIQUE: Volumetric scanning of the abdomen and pelvis was performed. Using automated exposure control and ad justment of the mA and/or kV according to patient size, radiation dose was kept as low as reasonably achievable to obtain optimal diagnostic quality images. DICOM format image data is available electro nically for review and comparison. FINDINGS: LOWER LUNGS: The visualized lower lungs are clear. LIVER: Homogeneous density without lesion. There is no dilation of the biliary tree. No calcified [place] es. SPLEEN: Normal size without lesion. PANCREAS: Within normal limits. KIDNEYS: Prominence of both collecting systems and slight hydroureter. No obstructing calculus. Right renal lo w density. ADRENAL GLANDS: Within normal limits. VASCULAR: There is no aortic aneurysm. BOWEL/MESENTERY: The stomach, small bowel, and colon demonstrate no acute abnormality. There is no free intraperitone al air or fluid. ABDOMINAL WALL: Within normal limits. RETROPERITONEUM: There is no lymphadenopathy. BLADDER: Mild circumferential wall thickening of the bladder.. REPRODUCTIVE: Within normal limits. INGUINAL: There is no lymphadenopathy or hernia. MUSCULOSKELETAL: Within normal limits for patient age. CONCLUSION: 1. Mild circumferential wall thickening of the urinary bladder. 2. Mild prominence of the collecting systems bilaterally and slight hydroureter but no definite hydro nephrosis. 3. No obstructing calculi. 4. Right renal density likely cyst. Franco Valles MD on September 06, 2017 at 14:25 Board Certified Radiologist. This report was verified electronically.
[2017-09-06 14:30] LABS: ALKALINE PHOSPHATASE 141 U/L (45-117)
[2017-09-06] MEDS ORDERED: NITROFURANTOIN MONOHYD MACROCR 100 MG CAP PO ONE (14:45)
[2017-09-06] MEDS ORDERED: cefTRIAXone INJ 1,000 MG in SODIUM CHLORIDE 0.9% INJ 100 ML IV ONE (14:45)
[2017-09-06 14:48] LABS: CKMB 3.5 NG/ML (0.5-3.6)
[2017-09-06 15:10] VITALS: BP 120/62; PULSE 68; RESP 17; O2SAT 96
[2017-09-06] MEDS ORDERED: NALOXONE HCL 0.4 MG/ML AMP IV PUSH PRN (15:15)
[2017-09-06] MEDS ORDERED: SODIUM CHLORIDE 0.9% FLUSH 10 ML FLUSH IV FLUSH PRN (15:15)
[2017-09-06] MEDS ORDERED: ONDANSETRON HCL 4 MG/2 ML VIAL IVP PRN (15:15)
[2017-09-06] MEDS ORDERED: ACETAMINOPHEN 325 MG TAB PO PRN (15:15)
--- NOTE | 2017-09-06 15:59 | HHI.HP ---
[facility] Service [facility] Primary Care Physician Sam Tejeda MD Admission Diagnosis Pyelonephritis, right renal insufficiency, leukocytosis Diagnoses: (1) Pyelonephritis Diagnosis: Principal Chief Complaint: Severe left flank pain Travel History International Travel<30 Days: No Contact w/Intl Traveler <30 Da: No Traveled to Known Affected Are: No History of Present Illness Written by Philly Escalante, acting as scribe for Dr. Escudero on 09/06/17 at 15:57. Mrs. Butler is a pleasant 57-year-old female patient with a known medical history of CAD with CA history and stent placement, DM, HTN and CKD who presented to the ED with severe left flank pain. 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 The pain was sharp in nature, started in her left flank area and radiated to her mid abdomen, a 10/10 on pain scale at its worse, was constant in nature, denies ever having this type of pain before, denies any known aggravating or relieving factors. Denies any associated fevers, chills, nausea, vomiting, diarrhea or dysuria. Denies any hematuria. At the time of assessment patient's pain is subjectively an 8/10 on pain scale, and has not changed in nature. Does admit to constantly feeling like she has to urinate. Denies any recent trauma. Denies any urinary incontinence. Does follow with Dr. Lewis in the outpatient setting for Stage IV chronic kidney disease. PCP is Dr. Burden. Review of Systems Constitutional: DENIES: Fever, Chills Eyes: DENIES: Blurred vision, Diplopia, Double Vision Respiratory: DENIES: Cough, Sputum production, Shortness of breath Cardiovascular: DENIES: Chest pain, Palpitations Gastrointestinal: COMPLAINS OF: Abdominal pain (left flank pain), Constipation , Nausea, DENIES: Black stools, Bloody stools, Diarrhea, Vomiting Genitourinary: COMPLAINS OF: Urgency, DENIES: Urinary frequency, Urinary incontinence, Hematuria, Dysuria Psychiatric: DENIES: Anxiety Except as stated in HPI: all other systems reviewed are Neg Past Family Social History Past Medical History CAD with CA history and stent placement in 2007 Type 2 diabetes mellitus Hypertension Stage IV kidney disease COPD Hypothyroidism Anemia Depression Hyperlipidemia History of Rhabdo. Past Surgical History Cardiac stent placement. Reported Medications Active Synthroid (Levothyroxine Sodium) 88 Mcg Tab 88 Mcg PO DAILY@0600 Reported Lantus Inj (Insulin Glargine) 1,000 Unit/10 Ml Vial 22 Units SQ BID Humalog Inj (Insulin Human Lispro) 1,000 Unit/10 Ml Vial 1-9 Units SQ ACHS Max dose at bedtime:( )units; sugars< 70,(0)units; sugars 150-199,(1)unit; sugars 200-249,(3)units; sugars 250-299,(5)units; sugars 300-349,(7)units; sugars more than 349,(9)units. Fish Oil ([place]-3 Fatty Acids) 1,000 Mg Cap 1 Tab PO DAILY Gemfibrozil 600 Mg Tab 600 Mg PO BIDAC Take 30 minutes prior to breakfast and dinner. Diltiazem (Diltiazem HCl) 120 Mg Tab 240 Mg PO DAILY D3 (Cholecalciferol) 1,000 Unit Tab 1 Tab PO TID Aspirin 81 Mg Chew 81 Mg CHEW DAILY Allergies: Coded Allergies: Sulfa (Sulfonamide Antibiotics) (Unverified Adverse Reaction, Intermediate , RASH, 09/06/17) Active Ordered Medications Current Medications Medications (Trade) Dose Ordered Sig/Jamal Route Start Time Stop Time Status Last Admin (NS Flush) 2 ml UNSCH PRN IV FLUSH 09/06/17 15:15 (NS Flush) 2 ml BID IV FLUSH 09/06/17 21:00 (Tylenol) 650 mg Q4H PRN PO 09/06/17 15:15 (Zofran Inj) 4 mg Q6H PRN IVP 09/06/17 15:15 (Narcan Inj) 0.4 mg UNSCH PRN IV PUSH 09/06/17 15:15 Ceftriaxone Sodium 1000 mg/ Sodium Chloride 100 ml @ 200 mls/hr Q24H IV 09/07/17 15:00 Family History Paternal medical history significant for CA. Mother had a history of AAA. Social History Denies any tobacco use, admits to quitting cigarette smoking 2 years ago. Denies any alcohol use. Denies any illicit drug use. Physical Exam Vital Signs Vital Signs Date Time Temp Pulse Resp B/P (MAP) Pulse Ox O2 Delivery O2 Flow Rate FiO2 09/06/17 15:10 68 17 120/62 (81) 96 Room Air 09/06/17 13:48 67 16 126/86 (99) 97 Room Air 09/06/17 12:24 98.2 77 16 191/85 (120) 96 Physical Exam GENERAL: This is a well-nourished, well-developed female patient, lying in bed with complaints of left flank pain. SKIN: No rashes, ecchymoses or lesions. Warm and dry. HENT: Atraumatic. Normocephalic. Pupils equal round and reactive. Extraocular motions intact. No scleral icterus. No injection or drainage. Nose without bleeding. Uvula midline. Airway patent. NECK: Trachea midline. No JVD. Supple. CARDIOVASCULAR: Regular rate and rhythm without murmurs, gallops, or rubs. RESPIRATORY: Clear to auscultation. Breath sounds equal bilaterally. No wheezes , rales, or rhonchi. GASTROINTESTINAL: Abdomen soft, non-tender, nondistended. No guarding. : Left flank pain. MUSCULOSKELETAL: Extremities without clubbing, cyanosis, or edema. No joint tenderness, effusion, or edema noted. NEUROLOGICAL: Awake and alert. Cranial nerves II through XII intact. Motor and sensory grossly within normal limits. Five out of 5 muscle strength in all muscle groups. Normal speech. Laboratory Laboratory Tests Test 09/06/17 13:30 White Blood Count 17.7 Red Blood Count 4.21 Hemoglobin 11.8 Hematocrit 36.4 Mean Corpuscular Volume 86.6 Mean Corpuscular Hemoglobin 28.1 Mean Corpuscular Hemoglobin Concent 32.4 Red Cell Distribution Width 13.3 Platelet Count 368 Mean Platelet Volume 7.9 Neutrophils (%) (Auto) 80.3 Lymphocytes (%) (Auto) 12.1 Monocytes (%) (Auto) 5.9 Eosinophils (%) (Auto) 0.8 Basophils (%) (Auto) 0.9 Neutrophils # (Auto) 14.3 Lymphocytes # (Auto) 2.1 Monocytes # (Auto) 1.0 Eosinophils # (Auto) 0.1 Basophils # (Auto) 0.2 CBC Comment DIFF FINAL Differential Comment Urine Collection Type CLEAN CATCH Urine Color BROWN Urine Turbidity CLOUDY Urine pH 5.5 Urine Specific [place] 1.016 Urine Protein 300 OR GREATER Urine Glucose (UA) NEG Urine Ketones TRACE Urine Occult Blood LARGE Urine Nitrite POS Urine Bilirubin NEG Urine Leukocyte Esterase LARGE Urine RBC INNUM Urine WBC 25-49 Urine WBC Clumps MOD Urine Squamous Epithelial Cells 0-5 Urine Bacteria MANY Microscopic Urinalysis Comment CULTURE INDICATED Blood Urea Nitrogen 41 Creatinine 1.90 Random Glucose 144 Total Protein 8.4 Albumin 3.3 Calcium Level 9.4 Alkaline Phosphatase 141 Aspartate Amino Transf (AST/SGOT) 20 Alanine Aminotransferase (ALT/SGPT) 22 Total Bilirubin 0.4 Sodium Level 140 Potassium Level 4.6 Chloride Level 105 Carbon Dioxide Level 24.0 Anion Gap 11 Estimat Glomerular Filtration Rate 27 Total Creatine Kinase 223 Creatine Kinase MB 3.5 Creatine Kinase MB % 1.6 Date/Time Source Procedure Growth Status 09/06/17 14:50 Blood Peripheral Aerobic Blood Culture Pending Received 09/06/17 14:50 Blood Peripheral Anaerobic Blood Culture Pending Received 09/06/17 13:30 Urine Clean Catch Urine Culture Pending Received Result Diagram: 09/06/17 1330 09/06/17 1330 Imaging Last Impressions Abdomen/Pelvis CT 09/06/17 1320 Signed Impressions: Service Date/Time: Wednesday, September 06, 2017 13:54 - CONCLUSION: 1. Mild circumferential wall thickening of the urinary bladder. 2. Mild prominence of the collecting systems bilaterally and slight hydroureter but no definite hydronephrosis. 3. No obstructing calculi. 4. Right renal density likely cyst. Franco Valles MD Septic Shock Reassessment Septic shock perfusion: reassessment completed Caprini VTE Risk Assessment Caprini VTE Risk Assessment: No/Low Risk (score <= 1) Caprini Risk Assessment Model Point Value = 1 Point Value = 2 Point Value = 3 Point Value = 5 Age 41-60 Minor surgery BMI > 25 kg/m2 Swollen legs Varicose veins or History of unexplained or recurrent spontaneous Oral contraceptives or hormone replacement Sepsis (< 1 month) Serious lung disease, including pneumonia (< 1 month) Abnormal pulmonary function Acute myocardial infarction Congestive heart failure (< 1 month) History of inflammatory bowel disease Medical patient at bed rest Age 61-74 Arthroscopic surgery Major open surgery (> 45 min) Laparoscopic surgery (> 45 min) Malignancy Confined to bed (> 72 hours) Immobilizing plaster cast Central venous access Age >= 75 History of VTE Family history of VTE Factor V Leiden Prothrombin [id number] Lupus anticoagulant Anticardiolipin antibodies Elevated serum homocysteine Heparin-induced thrombocytopenia Other congenital or acquired thrombophilia Stroke (< 1 month) Elective arthroplasty Hip, pelvis, or leg fracture Acute spinal cord injury (< 1 month) Prophylaxis Regimen Total Risk Factor Score Risk Level Prophylaxis Regimen 0-1 Low Early ambulation 2 Moderate Order ONE of the following: *Sequential Compression Device (SCD) *Heparin 5000 units SQ BID 3-4 Higher Order ONE of the following medications: *Heparin 5000 units SQ TID *Enoxaparin/Lovenox 40 mg SQ daily (WT < 150 kg, CrCl > 30 mL/min) *Enoxaparin/Lovenox 30 mg SQ daily (WT < 150 kg, CrCl > 10-29 mL/min) *Enoxaparin/Lovenox 30 mg SQ BID (WT < 150 kg, CrCl > 30 mL/min) AND/OR *Sequential Compression Device (SCD) 5 or more Highest Order ONE of the following medications: *Heparin 5000 units SQ TID (Preferred with Epidurals) *Enoxaparin/Lovenox 40 mg SQ daily (WT < 150 kg, CrCl > 30 mL/min) *Enoxaparin/Lovenox 30 mg SQ daily (WT < 150 kg, CrCl > 10-29 mL/min) *Enoxaparin/Lovenox 30 mg SQ BID (WT < 150 kg, CrCl > 30 mL/min) AND *Sequential Compression Device (SCD) Assessment and Plan Problem List: (1) Pyelonephritis ICD Code: N12 - Tubulo-interstitial nephritis, not specified as acute or chronic Status: Acute Plan: Abdomen/pelvis CT reviewed showing mild circumferential wall thickening of the urinary bladder. No obstructing calculi seen. Status post 1 L NS Bolus. Given Ceftriaxone IV and Macrobid PO x 1 given in ED. Now scheduled. CBC reviewed showing WBC 17.7 with mild bandemia. Afebrile. Urine analysis reviewed showing large amount of leukocyte esterase with increased WBC. Urine culture pending. Follow. CBC ordered for am. Follow. Blood cultures ordered and pending. Follow growth. Control nausea, Zofran available PRN. Ensure hydration, start maintenance IVF. Control pain, Morphine IV available PRN per pain scale. (2) Acute kidney injury superimposed on chronic kidney disease ICD Code: N17.9 - Acute kidney failure, unspecified; N18.9 - Chronic kidney disease, unspecified Plan: Suspect secondary to pyelonephritis. Creatinine on presentation 1.9, GFR 27. Reviewed previous labs, baseline creatinine is around 1.3-1.6. CPK mildly elevated, 223. Follows with Dr. Lewis in the outpatient setting for stage IV CKD. Ensure hydration, continue IVF. Monitor BMP in am. Follow. Avoid nephrotoxins. (3) Hypothyroidism ICD Code: E03.9 - Hypothyroidism, unspecified Plan: Continue home Levothyroxine. (4) CAD (coronary artery disease) ICD Code: I25.10 - Atherosclerotic heart disease of [place] coronary artery without angina pectoris Plan: With history of stent placement. Continue home Aspirin. Continue home Diltiazem. (5) Diabetes ICD Code: E11.9 - Type 2 diabetes mellitus without complications Status: Chronic Plan: ACCU checks ACHS, sliding scale insulin, cover as needed. Follow trends. Continue home long acting insulin. Medical Decision Making Impression and Plan This note was transcribed by susan [doc]. I, Dr. Wendy Escudero personally performed the history, physical exam, and medical decision making; and confirmed the accuracy of the information in the transcribed note. Authenticated by Dr. Wendy Escudero on 09/06/17 at 16:59. Problem Qualifiers (1) Diabetes: Philly Escalante Sep 06, 2017 15:59 Wendy Escudero MD Sep 06, 2017 16:59
[2017-09-06 16:30] VITALS: BP_SYST 109; BP_SYST 129; BP_DIAS 68; BP_DIAS 75; PULSE 58; RESP 20; TEMP 96.1; O2SAT 97
[2017-09-06] MEDS ORDERED: GLUCAGON 1 MG/ML VIAL OTHER PRN (16:45)
[2017-09-06] MEDS ORDERED: DEXTROSE 50% IN WATER 50 ML VIAL(D50) IV PUSH PRN (16:45)
[2017-09-06] MEDS: INSULIN ASPART SUPPLEMENTAL SCALE SQ SCH ×2 (17:00→21:00)
[2017-09-06] MEDS: MORPHINE SULFATE 4 MG/ML INJ IV PUSH PRN (18:48)
[2017-09-06] MEDS: SODIUM CHLOR 0.9% 1000 ML INJ 1,000 ML IV SCH (18:50)
[2017-09-06 20:00] VITALS: BP 125/79; PULSE 59; RESP 20; TEMP 98; O2SAT 95
[2017-09-06] MEDS: SODIUM CHLORIDE 0.9% FLUSH 10 ML FLUSH IV FLUSH SCH (20:50)
[2017-09-06] MEDS: INSULIN DETEMIR 100 UNITS/ML VIAL SQ SCH (22:00)
[2017-09-07] VITALS: BP 104/63; PULSE 60; RESP 20; TEMP 98.4; O2SAT 91
[2017-09-07] MEDS: SODIUM CHLOR 0.9% 1000 ML INJ 1,000 ML IV SCH ×3 (03:06→22:55)
[2017-09-07 06:10] LABS: AUTOMATED NEUTROPHIL # 10.1 TH/MM3 (1.8-7.7); BASOPHIL # 0.1 TH/MM3 (0-0.2); BASOPHIL % 0.6 % (0.0-2.0); EOSINOPHIL # 0.1 TH/MM3 (0-0.4); EOSINOPHIL % 0.7 % (0.0-4.0); HEMATOCRIT 31.9 % (35.0-46.0); HEMO FLAGS DIFF FINAL; LYMPH % 16.1 % (9.0-44.0); LYMPHOCYTE # 2.2 TH/MM3 (1.0-4.8); MEAN CELL VOLUME 87.4 FL (80.0-100.0); MEAN CORPUSCULAR HEMOGLOBIN 29.2 PG (27.0-34.0); MEAN CORPUSCULAR HGB CONC 33.4 % (32.0-36.0); MONO % 6.8 % (0.0-8.0); NEUT % 75.8 % (16.0-70.0); PLATELET COUNT 327 TH/MM3 (150-450); RED BLOOD COUNT 3.65 MIL/MM3 (4.00-5.30); RED CELL DISTRIBUTION WIDTH 13.3 % (11.6-17.2); WHITE BLOOD COUNT 13.4 TH/MM3 (4.0-11.0)
[2017-09-07] MEDS: GEMFIBROZIL 600 MG TAB PO SCH ×2 (06:14→18:25)
[2017-09-07] MEDS: LEVOTHYROXINE SODIUM 88 MCG TAB PO SCH (06:14)
[2017-09-07 06:15] LABS: POTASSIUM 3.8 MEQ/L (3.5-5.1)
[2017-09-07 06:21] LABS: BICARBONATE 21.2 MEQ/L (21.0-32.0)
[2017-09-07 08:00] VITALS: BP 133/67; PULSE 73; RESP 16; TEMP 97.5; O2SAT 95
[2017-09-07] MEDS: INSULIN ASPART SUPPLEMENTAL SCALE SQ SCH ×4 (08:00→21:30)
--- NOTE | 2017-09-07 08:53 | HHI.PR ---
Subjective Remarks Written by Philly Escalante, acting as scribe for Dr. Escudero on 09/07/17 at 0853. Follow up pyelonephritis. Patient seen and examined, lying in bed comfortably. Patient states that her left flank and abdominal pain has diminished to a 5/10 on pain scale. Has been tolerating PO intake. Denies any nausea or vomiting. Patient did have an episode of hypoglycemia overnight, glucose was 21. Patient was completely asymptomatic and given orange juice with blood sugar now above > 70. Eating breakfast currently. Patient states she does have episodes of hypoglycemia at home but never this low, states that she usually is never symptomatic. Will decrease her long acting insulin. Objective Vitals Vital Signs Date Time Temp Pulse Resp B/P (MAP) Pulse Ox O2 Delivery O2 Flow Rate FiO2 09/07/17 00:00 98.4 60 20 104/63 (77) 91 09/06/17 20:00 98.0 59 20 125/79 (94) 95 09/06/17 16:30 96.1 58 20 129/75 (93) 97 09/06/17 16:30 69 18 109/68 (82) 97 09/06/17 15:10 68 17 120/62 (81) 96 Room Air 09/06/17 13:48 67 16 126/86 (99) 97 Room Air 09/06/17 12:24 98.2 77 16 191/85 (120) 96 I/O 09/06/17 09/06/17 09/06/17 09/07/17 09/07/17 09/07/17 07:00 15:00 23:00 07:00 15:00 23:00 Intake Total 1000 ml 616 ml 714 ml 360 ml Balance 1000 ml 616 ml 714 ml 360 ml Intake Oral 120 ml 360 ml IV Total 1000 ml 496 ml 714 ml # Voids 2 1 # Bowel Movements 0 0 Result Diagram: 09/07/17 0420 09/07/17 0420 Imaging Last Impressions Abdomen/Pelvis CT 09/06/17 1320 Signed Impressions: Service Date/Time: Wednesday, September 06, 2017 13:54 - CONCLUSION: 1. Mild circumferential wall thickening of the urinary bladder. 2. Mild prominence of the collecting systems bilaterally and slight hydroureter but no definite hydronephrosis. 3. No obstructing calculi. 4. Right renal density likely cyst. Franco Valles MD Objective Remarks GENERAL: This is a well-nourished, well-developed female patient, lying in bed with complaints of mild left flank pain. SKIN: No rashes, ecchymoses or lesions. Warm and dry. HENT: Atraumatic. Normocephalic. Pupils equal round and reactive. Extraocular motions intact. No scleral icterus. No injection or drainage. Nose without bleeding. Uvula midline. Airway patent. NECK: Trachea midline. No JVD. Supple. CARDIOVASCULAR: Regular rate and rhythm without murmurs, gallops, or rubs. RESPIRATORY: Clear to auscultation. Breath sounds equal bilaterally. No wheezes , rales, or rhonchi. GASTROINTESTINAL: Abdomen soft, nondistended. No guarding. Tender to palpation in suprapubic area. : Left flank pain. CVA tenderness. MUSCULOSKELETAL: Extremities without clubbing, cyanosis, or edema. No joint tenderness, effusion, or edema noted. NEUROLOGICAL: Awake and alert. Cranial nerves II through XII intact. Motor and sensory grossly within normal limits. Five out of 5 muscle strength in all muscle groups. Normal speech. A/P Problem List: (1) Pyelonephritis ICD Code: N12 - Tubulo-interstitial nephritis, not specified as acute or chronic Status: Acute Plan: Abdomen/pelvis CT reviewed showing mild circumferential wall thickening of the urinary bladder. No obstructing calculi seen. Status post 1 L NS Bolus given in ED. Continue IVF for now. Given Ceftriaxone IV and Macrobid PO x 1 given in ED. Now scheduled Ceftriaxone. Urine analysis reviewed showing large amount of leukocyte esterase with increased WBC. Urine culture pending. Follow. CBC reviewed from this am, now trending down, 17.7-->13.4. Afebrile. Blood cultures ordered and pending. Follow growth. Control nausea, Zofran available PRN. Control pain, Morphine IV available PRN per pain scale. Mild acute on chronic kidney injury, creatinine coming down 1.9-->1.6. Trend. (2) Acute kidney injury superimposed on chronic kidney disease ICD Code: N17.9 - Acute kidney failure, unspecified; N18.9 - Chronic kidney disease, unspecified Plan: Suspect secondary to pyelonephritis. Creatinine on presentation 1.9, GFR 27. Reviewed previous labs, baseline creatinine is around 1.3-1.6. Today creatinine is 1.6 CPK mildly elevated, 223. Follows with Dr. Lewis in the outpatient setting for stage IV CKD. Ensure hydration, continue IVF. Encourage PO intake as tolerated. Avoid nephrotoxins. (3) Hypothyroidism ICD Code: E03.9 - Hypothyroidism, unspecified Plan: Continue home Levothyroxine. (4) CAD (coronary artery disease) ICD Code: I25.10 - Atherosclerotic heart disease of [place] coronary artery without angina pectoris Plan: With history of stent placement. Continue home Aspirin. Continue home Diltiazem. (5) Diabetes ICD Code: E11.9 - Type 2 diabetes mellitus without complications Status: Chronic Plan: ACCU checks ACHS, sliding scale insulin, cover as needed. Follow trends. Patient had episode of hypoglycemia, glucose was 22. Will hold home long acting insulin. Continue to monitor trends. Attending Statement This note was transcribed by scribe [doc]. I, Dr. Wendy Escudero personally performed the history, physical exam, and medical decision making; and confirmed the accuracy of the information in the transcribed note. hypoglycemia noted will hold insulin and follow sliding scale, frequent hypoglycemia Authenticated by Dr. Wendy Escudero on 09/07/17 at 09:39. Problem Qualifiers (1) Diabetes: Philly Escalante Sep 07, 2017 08:53 Wendy Escudero MD Sep 07, 2017 09:39
[2017-09-07] MEDS: INSULIN DETEMIR 100 UNITS/ML VIAL SQ SCH (09:00)
[2017-09-07] MEDS: SODIUM CHLORIDE 0.9% FLUSH 10 ML FLUSH IV FLUSH SCH ×2 (10:54→21:00)
[2017-09-07] MEDS: DILTIAZEM-CD 240 MG CAP ER PO SCH (10:54)
[2017-09-07] MEDS: ASPIRIN 81 MG CHEW TAB CHEW SCH (10:54)
[2017-09-07 12:00] VITALS: BP 131/60; PULSE 65; RESP 17; TEMP 96.4
[2017-09-07] MEDS: cefTRIAXone INJ 1,000 MG in SODIUM CHLORIDE 0.9% INJ 100 ML IV SCH (14:30)
[2017-09-07 18:06] VITALS: BP 121/60; PULSE 62; RESP 16; TEMP 98; O2SAT 92
[2017-09-08] VITALS: BP 117/55; PULSE 69; RESP 20; TEMP 98.4; O2SAT 91
[2017-09-08] MEDS: MORPHINE SULFATE 4 MG/ML INJ IV PUSH PRN (02:21)
[2017-09-08] MEDS ORDERED: ACETAMINOPHEN/HYDROcodone 325 MG/5 MG TAB PO PRN (04:15)
[2017-09-08] MEDS ORDERED: MORPHINE SULFATE 2 MG/ML INJ IV PRN (04:30)
[2017-09-08] MEDS: SODIUM CHLOR 0.9% 1000 ML INJ 1,000 ML IV SCH (04:44)
[2017-09-08 06:23] LABS: AUTOMATED NEUTROPHIL # 5.4 TH/MM3 (1.8-7.7); BASOPHIL # 0.1 TH/MM3 (0-0.2); BASOPHIL % 0.9 % (0.0-2.0); EOSINOPHIL # 0.4 TH/MM3 (0-0.4); EOSINOPHIL % 4.3 % (0.0-4.0); HEMATOCRIT 31.4 % (35.0-46.0); HEMO FLAGS DIFF FINAL; LYMPH % 28.2 % (9.0-44.0); LYMPHOCYTE # 2.6 TH/MM3 (1.0-4.8); MEAN CELL VOLUME 87.3 FL (80.0-100.0); MEAN CORPUSCULAR HEMOGLOBIN 28.2 PG (27.0-34.0); MEAN CORPUSCULAR HGB CONC 32.3 % (32.0-36.0); MONO % 7.1 % (0.0-8.0); NEUT % 59.5 % (16.0-70.0); PLATELET COUNT 321 TH/MM3 (150-450); RED BLOOD COUNT 3.59 MIL/MM3 (4.00-5.30); RED CELL DISTRIBUTION WIDTH 13.3 % (11.6-17.2); WHITE BLOOD COUNT 9.2 TH/MM3 (4.0-11.0)
[2017-09-08 06:27] LABS: CHLORIDE 110 MEQ/L (98-107); POTASSIUM 4.5 MEQ/L (3.5-5.1); SODIUM (NA) 140 MEQ/L (136-145)
[2017-09-08 06:39] LABS: ALKALINE PHOSPHATASE 108 U/L (45-117); ALT (GPT) 15 U/L (10-53); ANION GAP 8 MEQ/L (5-15); AST (GOT) 12 U/L (15-37); BICARBONATE 22.1 MEQ/L (21.0-32.0); BLOOD UREA NITROGEN 43 MG/DL (7-18); GLOMERULAR FILTRATION RATE 36 ML/MIN (>89); TOTAL BILIRUBIN ADULT 0.3 MG/DL (0.2-1.0)
[2017-09-08] MEDS: LEVOTHYROXINE SODIUM 88 MCG TAB PO SCH (06:45)
[2017-09-08] MEDS: GEMFIBROZIL 600 MG TAB PO SCH ×2 (06:46→16:00)
[2017-09-08 08:00] VITALS: BP 136/64; PULSE 64; RESP 14; TEMP 97.8; O2SAT 91
[2017-09-08] MEDS: INSULIN ASPART SUPPLEMENTAL SCALE SQ SCH ×2 (08:00→12:00)
[2017-09-08] MEDS: DILTIAZEM-CD 240 MG CAP ER PO SCH (09:19)
[2017-09-08] MEDS: ASPIRIN 81 MG CHEW TAB CHEW SCH (09:19)
[2017-09-08] MEDS: SODIUM CHLORIDE 0.9% FLUSH 10 ML FLUSH IV FLUSH SCH (09:19)
--- NOTE | 2017-09-08 09:29 | HHI.PR ---
Subjective Remarks Follow up pyelonephritis. Patient seen and examined, lying in bed sleeping. Awakens to voice. States that she did not sleep well, her pain seemed to be improving over the course of the day yesterday and became severe again overnight. currently the pain is an 8/10 on pain scale. Was given IV Morphine. Blood sugar has been stable overnight. Eating well. Denies any fever, chills, chest pain, shortness of breath. States urine is clearing up. Denies any nausea , vomiting, diarrhea. Objective Vitals Vital Signs Date Time Temp Pulse Resp B/P (MAP) Pulse Ox O2 Delivery O2 Flow Rate FiO2 09/08/17 00:00 98.4 69 20 117/55 (75) 91 09/07/17 18:06 98.0 62 16 121/60 (80) 92 09/07/17 12:00 96.4 65 17 131/60 (83) I/O 09/07/17 09/07/17 09/07/17 09/08/17 09/08/17 09/08/17 07:00 15:00 23:00 07:00 15:00 23:00 Intake Total 714 ml 360 ml 1262 ml 1480 ml Balance 714 ml 360 ml 1262 ml 1480 ml Intake Oral 360 ml 580 ml 480 ml IV Total 714 ml 682 ml 1000 ml # Voids 1 2 3 # Bowel Movements 0 0 0 Result Diagram: 09/08/17 0520 09/08/17 0520 Imaging Last Impressions Abdomen/Pelvis CT 09/06/17 1320 Signed Impressions: Service Date/Time: Wednesday, September 06, 2017 13:54 - CONCLUSION: 1. Mild circumferential wall thickening of the urinary bladder. 2. Mild prominence of the collecting systems bilaterally and slight hydroureter but no definite hydronephrosis. 3. No obstructing calculi. 4. Right renal density likely cyst. Franco Valles MD Objective Remarks GENERAL: This is a well-nourished, well-developed female patient, lying in bed with complaints of continued left flank pain. SKIN: No rashes, ecchymoses or lesions. Warm and dry. HENT: Atraumatic. Normocephalic. Pupils equal round and reactive. Extraocular motions intact. No scleral icterus. No injection or drainage. Nose without bleeding. Uvula midline. Airway patent. NECK: Trachea midline. No JVD. Supple. CARDIOVASCULAR: Regular rate and rhythm without murmurs, gallops, or rubs. RESPIRATORY: Clear to auscultation. Breath sounds equal bilaterally. No wheezes , rales, or rhonchi. GASTROINTESTINAL: Abdomen soft, nondistended. No guarding. Tender to palpation in suprapubic area. : Left flank pain. CVA tenderness. MUSCULOSKELETAL: Extremities without clubbing, cyanosis, or edema. No joint tenderness, effusion, or edema noted. NEUROLOGICAL: Awake and alert. Cranial nerves II through XII intact. Motor and sensory grossly within normal limits. Five out of 5 muscle strength in all muscle groups. Normal speech. A/P Problem List: (1) Pyelonephritis ICD Code: N12 - Tubulo-interstitial nephritis, not specified as acute or chronic Status: Acute Plan: Abdomen/pelvis CT reviewed showing mild circumferential wall thickening of the urinary bladder. No obstructing calculi seen. Status post 1 L NS Bolus given in ED. Continue IVF for now. Given Ceftriaxone IV and Macrobid PO x 1 given in ED. Now scheduled Ceftriaxone. Urine analysis reviewed showing large amount of leukocyte esterase with increased WBC. Urine culture showing E.coli. Sensitive to Ceftriaxone, continue. CBC reviewed from this am, now trending down, 17.7-->13.4-->9.2. Afebrile. Blood cultures NGTD. Follow growth. Control nausea, Zofran available PRN. Control pain, Morphine IV available PRN per pain scale. Mild acute on chronic kidney injury, creatinine coming down 1.9-->1.6-->1.5. Trend. (2) Acute kidney injury superimposed on chronic kidney disease ICD Code: N17.9 - Acute kidney failure, unspecified; N18.9 - Chronic kidney disease, unspecified Plan: Suspect secondary to pyelonephritis. Creatinine on presentation 1.9, GFR 27. Reviewed previous labs, baseline creatinine is around 1.3-1.6. Today creatinine is 1.5. Follows with Dr. Lewis in the outpatient setting for stage IV CKD. Ensure hydration, continue IVF. Encourage PO intake as tolerated. Avoid nephrotoxins. (3) Hypothyroidism ICD Code: E03.9 - Hypothyroidism, unspecified Plan: Continue home Levothyroxine. (4) CAD (coronary artery disease) ICD Code: I25.10 - Atherosclerotic heart disease of [place] coronary artery without angina pectoris Plan: With history of stent placement. Continue home Aspirin. Continue home Diltiazem. (5) Diabetes ICD Code: E11.9 - Type 2 diabetes mellitus without complications Status: Chronic Plan: ACCU checks ACHS, sliding scale insulin, cover as needed. Follow trends. Patient had episode of hypoglycemia first night of hospitalization, glucose was 22. Will hold home long acting insulin. Continue to monitor trends. Now stable. Problem Qualifiers (1) Diabetes: Philly Escalante Sep 08, 2017 09:29
[2017-09-08] MEDS ORDERED: BISACODYL EC 5 MG TABEC PO ONE (11:00)
[2017-09-08] MEDS ORDERED: DOCUSATE SODIUM 100 MG CAP PO ONE (11:00)
[2017-09-08 12:00] VITALS: BP 136/69; PULSE 63; RESP 14; TEMP 96.5; O2SAT 91
[2017-09-08] MEDS: cefTRIAXone INJ 1,000 MG in SODIUM CHLORIDE 0.9% INJ 100 ML IV SCH (14:12)
[2017-09-08] MEDS ORDERED: CIPR500T2 PO (14:59)
--- NOTE | 2017-09-08 14:59 | HHI.DCPOC ---
Discharge Care Plan Diagnosis: (1) Diabetes (2) Pyelonephritis Goals to Promote Your Health * To prevent worsening of your condition and complications * To maintain your health at the optimal level Directions to Meet Your Goals Take your medications as prescribed Follow your dietary instruction Follow activity as directed Keep your appointments as scheduled Take your immunizations and boosters as scheduled If your symptoms worsen call your PCP, if no PCP go to Urgent Care Center or Emergency Room Smoking is Dangerous to Your Health. Avoid second hand smoke Call the 24-hour hour crisis hotline for domestic abuse at Wendy Escudero MD Sep 08, 2017 14:59
--- NOTE | 2017-09-08 15:01 | HHI.DS ---
Discharge Summary Admission Date Sep 07, 2017 at 10:31 Discharge Date: Sep 08, 2017 Admitting Diagnosis Pyelonephritis, right renal insufficiency, leukocytosis (1) Pyelonephritis ICD Code: N12 - Tubulo-interstitial nephritis, not specified as acute or chronic Status: Acute (2) Acute kidney injury superimposed on chronic kidney disease ICD Code: N17.9 - Acute kidney failure, unspecified; N18.9 - Chronic kidney disease, unspecified (3) Hypothyroidism ICD Code: E03.9 - Hypothyroidism, unspecified (4) CAD (coronary artery disease) ICD Code: I25.10 - Atherosclerotic heart disease of [place] coronary artery without angina pectoris (5) Diabetes ICD Code: E11.9 - Type 2 diabetes mellitus without complications Status: Chronic Procedures none Brief History - From Admission Mrs. Butler is a pleasant 57-year-old female patient with a known medical history of CAD with AK history and stent placement, DM, HTN and CKD who presented to the ED with severe left flank pain. 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 The pain was sharp in nature, started in her left flank area and radiated to her mid abdomen, a 10/10 on pain scale at its worse, was constant in nature, denies ever having this type of pain before, denies any known aggravating or relieving factors. Denies any associated fevers, chills, nausea, vomiting, diarrhea or dysuria. Denies any hematuria. At the time of assessment patient's pain is subjectively an 8/10 on pain scale, and has not changed in nature. Does admit to constantly feeling like she has to urinate. Denies any recent trauma. Denies any urinary incontinence. Does follow with Dr. Lewis in the outpatient setting for Stage IV chronic kidney disease. PCP is Dr. Burden. CBC/BMP: 09/08/17 0520 09/08/17 0520 Significant Findings Laboratory Tests Test 09/06/17 13:30 09/07/17 04:20 09/08/17 05:20 White Blood Count 17.7 TH/MM3 (4.0-11.0) 13.4 TH/MM3 (4.0-11.0) Neutrophils (%) (Auto) 80.3 % (16.0-70.0) 75.8 % (16.0-70.0) Neutrophils # (Auto) 14.3 TH/MM3 (1.8-7.7) 10.1 TH/MM3 (1.8-7.7) Monocytes # (Auto) 1.0 TH/MM3 (0-0.9) Urine Color BROWN (YELLW/STRAW) Urine Turbidity CLOUDY (CLEAR) Urine Protein 300 OR GREATER mg/dL Urine Ketones TRACE mg/dL (NEG) Urine Occult Blood LARGE (NEG) Urine Nitrite POS (NEG) Urine Leukocyte Esterase LARGE (NEG) Urine RBC INNUM /hpf (0-3) Urine WBC 25-49 /hpf (0-5) Urine WBC Clumps MOD (NONE) Urine Bacteria MANY /hpf (NONE) Blood Urea Nitrogen 41 MG/DL (7-18) 41 MG/DL (7-18) 43 MG/DL (7-18) Creatinine 1.90 MG/DL (0.50-1.00) 1.60 MG/DL (0.50-1.00) 1.50 MG/DL (0.50-1.00) Random Glucose 144 MG/DL (74-106) 21 MG/DL (74-106) 149 MG/DL (74-106) Total Protein 8.4 GM/DL (6.4-8.2) Albumin 3.3 GM/DL (3.4-5.0) 2.5 GM/DL (3.4-5.0) Alkaline Phosphatase 141 U/L (45-117) Estimat Glomerular Filtration Rate 27 ML/MIN (>89) 33 ML/MIN (>89) 36 ML/MIN (>89) Total Creatine Kinase 223 U/L (26-192) Red Blood Count 3.65 MIL/MM3 (4.00-5.30) 3.59 MIL/MM3 (4.00-5.30) Hemoglobin 10.6 GM/DL (11.6-15.3) 10.1 GM/DL (11.6-15.3) Hematocrit 31.9 % (35.0-46.0) 31.4 % (35.0-46.0) Chloride Level 110 MEQ/L (98-107) 110 MEQ/L (98-107) Eosinophils (%) (Auto) 4.3 % (0.0-4.0) Aspartate Amino Transf (AST/SGOT) 12 U/L (15-37) Imaging Last Impressions Abdomen/Pelvis CT 09/06/17 1320 Signed Impressions: Service Date/Time: Wednesday, September 06, 2017 13:54 - CONCLUSION: 1. Mild circumferential wall thickening of the urinary bladder. 2. Mild prominence of the collecting systems bilaterally and slight hydroureter but no definite hydronephrosis. 3. No obstructing calculi. 4. Right renal density likely cyst. Franco Valles MD PE at Discharge GENERAL: This is a well-nourished, well-developed female patient, lying in bed with complaints of continued left flank pain. SKIN: No rashes, ecchymoses or lesions. Warm and dry. HENT: Atraumatic. Normocephalic. Pupils equal round and reactive. Extraocular motions intact. No scleral icterus. No injection or drainage. Nose without bleeding. Uvula midline. Airway patent. NECK: Trachea midline. No JVD. Supple. CARDIOVASCULAR: Regular rate and rhythm without murmurs, gallops, or rubs. RESPIRATORY: Clear to auscultation. Breath sounds equal bilaterally. No wheezes , rales, or rhonchi. GASTROINTESTINAL: Abdomen soft, nondistended. No guarding. Tender to palpation in suprapubic area. : Left flank pain. CVA tenderness. MUSCULOSKELETAL: Extremities without clubbing, cyanosis, or edema. No joint tenderness, effusion, or edema noted. NEUROLOGICAL: Awake and alert. Cranial nerves II through XII intact. Motor and sensory grossly within normal limits. Five out of 5 muscle strength in all muscle groups. Normal speech. Pt update on day of discharge Patient seen today. Complaint of constipation Regimen added and discharge plans discussed with patient, spouse and nursing team Hospital Course Patient is a 49-year-old female with known history of diabetes and coronary disease. She did come in with flank pain and was found to have pyelonephritis. She was treated with antibiotics and cultures are positive for Escherichia coli sensitive to ciprofloxacin and she was discharged with the antibiotics for treatment of, continue urinary tract infection Pt Condition on Discharge: Good Discharge Disposition: Discharge Home Discharge Time: <= 30 minutes Discharge Instructions DIET: Follow Instructions for: Diabetic Diet Activities you can perform: Regular-No Restrictions Follow up Referrals: PCP Follow-up - 1 Week New Medications: Ciprofloxacin (Ciprofloxacin) 500 Mg Tab 500 MG PO BID for Infection, #14 TAB 0 Refills Continued Medications: Aspirin (Aspirin) 81 Mg Chew 81 MG CHEW DAILY, TAB 0 Refills Cholecalciferol (D3) 1,000 Unit Tab 1 TAB PO TID Diltiazem (Diltiazem) 120 Mg Tab 240 MG PO DAILY for Angina, #120 TAB 0 Refills Gemfibrozil (Gemfibrozil) 600 Mg Tab 600 MG PO BIDAC, #60 TAB 0 Refills Take 30 minutes prior to breakfast and dinner. Insulin Glargine Inj (Lantus Inj) 1,000 Unit/10 Ml Vial 22 UNITS SQ BID for Blood Sugar Management, VIAL 0 Refills Insulin Lispro (Human) Inj (Humalog Inj) 1,000 Unit/10 Ml Vial 1-9 UNITS SQ ACHS for Blood Sugar Management, #1 VIAL 0 Refills Max dose at bedtime:( )units; sugars< 70,(0)units; sugars 150-199,(1)unit; sugars 200-249,(3)units; sugars 250-299,(5)units; sugars 300-349,(7)units; sugars more than 349,(9)units. Levothyroxine (Synthroid) 88 Mcg Tab 88 MCG PO DAILY@0600 for hypothyrodism, #30 TAB Red Bud-3 Fatty Acids (Fish Oil) 1,000 Mg Cap 1 TAB PO DAILY Wendy Escudero MD Sep 08, 2017 15:01
[2017-09-08 15:03] VITALS: RESP 18
== END 2017-09-08 17:05 | disposition home or self-care (01) | DRG 690 ==
LOC: PHED 12:02 → PHEDA 15:02 → PH3A 16:16 → OBSVTOIN 09-07 10:31
PROVIDERS: ADMIT Hospitalist; ATTEND Hospitalist
DX: N12 Tubulo-interstitial nephritis, not specified as acute or chronic (principal); E11.22 Type 2 diabetes mellitus with diabetic chronic kidney disease; N17.9 Acute kidney failure, unspecified; N18.4 Chronic kidney disease, stage 4 (severe); E11.649 Type 2 diabetes mellitus with hypoglycemia without coma; B96.20 Unspecified Escherichia coli [E. coli] as the cause of diseases classified elsewhere; I25.10 Atherosclerotic heart disease of native coronary artery without angina pectoris; E03.9 Hypothyroidism, unspecified; I12.9 Hypertensive chronic kidney disease with stage 1 through stage 4 chronic kidney disease, or unspecified chronic kidney disease; J44.9 Chronic obstructive pulmonary disease, unspecified; Z95.5 Presence of coronary angioplasty implant and graft; Z79.4 Long term (current) use of insulin; Z87.891 Personal history of nicotine dependence; Z88.2 Allergy status to sulfonamides
CPT/HCPCS: 74176; 80048; 80053; 81001; 82550; 82552; 82948; 85025; 87040; 87077; 87086; 87186; J0696; J1815; J2270; J2405; J7030